=== PATIENT | male | born 1935 | race Caucasian/White ===

== ENCOUNTER → 2017-03-19 | Outpatient (REF) | payer MEDICARE ==
[2017-03-19 12:32] LABS: MEAN CORPUSCULAR HEMOGLOBIN 31.6 pg (27.0-33.0); MEAN CORPUSCULAR HGB CONC 33.2 g/dl (32.0-36.5); MEAN CORPUSCULAR VOLUME 95.2 fl (80.0-96.0); RED CELL DISTRIBUTION WIDTH 13.2 % (11.5-14.5); WHITE BLOOD COUNT 3.6 K/mm3 (4.0-10.0)
[2017-03-19 12:52] LABS: ALBUMIN 3.8 GM/DL (3.2-5.2); ALBUMIN/GLOBULIN RATIO 1.58 (1.00-1.93); ALKALINE PHOSPHATASE 52 U/L (45-117); ALT/SGPT 19 U/L (12-78); ANION GAP 6 MEQ/L (8-16); AST/SGOT 11 U/L (15-37); BILIRUBIN,TOTAL 0.5 MG/DL (0.2-1.0); BLOOD UREA NITROGEN 18 MG/DL (7-18); CALCIUM LEVEL 8.3 MG/DL (8.8-10.2); CARBON DIOXIDE LEVEL 31 MEQ/L (21-32); CHLORIDE LEVEL 107 MEQ/L (98-107); CHOLESTEROL LEVEL 130 MG/DL (<200); GLOMERULAR FILTRATION RATE > 60.0 (>35); GLUCOSE, FASTING 101 MG/DL (83-110); POTASSIUM SERUM 4.3 MEQ/L (3.5-5.1); SODIUM LEVEL 144 MEQ/L (136-145); TOTAL PROTEIN 6.2 GM/DL (6.4-8.2); TRIGLYCERIDES LEVEL 72 MG/DL (<150); URIC ACID 3.3 MG/DL (3.5-7.2)
== END ==
LOC: M SFHCPLAZ 10:21
PROVIDERS: ATTEND Internal Medicine
DX: Z00.00 Encounter for general adult medical examination without abnormal findings (principal); I25.10 Atherosclerotic heart disease of native coronary artery without angina pectoris; Z79.899 Other long term (current) drug therapy; I10 Essential (primary) hypertension; M10.9 Gout, unspecified

== ENCOUNTER 2017-06-17 21:41 | Emergency (ER) | payer MEDICARE ==
[~2017-06-17] VITALS: Ht 180.3 cm; Wt 95.0 kg
[2017-06-17] MEDS ORDERED: ALLO15TA PO (21:52)
[2017-06-17] MEDS ORDERED: ESOM1CAP5 PO (21:52)
[2017-06-17] MEDS ORDERED: GABA-282 PO (21:52)
[2017-06-17] MEDS ORDERED: ROSU5TAB PO (21:52)
[2017-06-17] MEDS ORDERED: LISI-538 PO (21:52)
[2017-06-17] MEDS ORDERED: IBUP-1022 PO (22:13)
[2017-06-17] MEDS ORDERED: CYCL10TA PO (22:13)
[2017-06-17] MEDS ORDERED: KETOROLAC 60 MG/2 ML VIAL (J1885) IM ONE (22:15)
[2017-06-17 22:41] VITALS: BP 142/56
[2017-06-17] MEDS ORDERED: CYCLOBENZAPRINE 10 MG TAB PO ONE (22:45)
== END 2017-06-17 22:53 | disposition home or self-care (01) ==
LOC: M ED 21:41
DX: M43.6 Torticollis (principal); I13.10 Hypertensive heart and chronic kidney disease without heart failure, with stage 1 through stage 4 chronic kidney disease, or unspecified chronic kidney disease; N18.9 Chronic kidney disease, unspecified; Z95.5 Presence of coronary angioplasty implant and graft; Z87.891 Personal history of nicotine dependence; Z79.899 Other long term (current) drug therapy
CPT/HCPCS: 96372; 99282; J1885; J3360

== ENCOUNTER → 2017-09-09 | Outpatient (CLI) | payer MEDICARE ==
[~2017-09-09] MED LIST: ALLO15TA PO; CYCL10TA PO; ESOM1CAP5 PO; GABA-282 PO; IBUP-1022 PO; LISI-538 PO; ROSU5TAB PO
--- NOTE | 2017-09-09 14:15 | REP ---
Left lower extremity Duplex Doppler venous ultrasound: Real time compression and duplex Doppler interrogation of the left lower extremity deep venous system is performed. The left common femoral, superficial femoral and popliteal veins are fully compressible with transducer pressure and demonstrate normal spontaneous and phasic flow, without evidence of deep venous thrombosis. Impression: No evidence of deep venous thrombosis of the left lower extremity femoral popliteal venous system. Signed by Sunil Elliott MD 09/09/2017 02:06 P
--- NOTE | 2017-09-09 14:28 | REP ---
AP LATERAL LEFT FOOT, TWO VIEWS: HISTORY: Pain. There is no acute fracture or dislocation. The joint spaces are normal in appearance. An osteophyte is present on the posterior calcaneus. IMPRESSION: There is no acute fracture or dislocation. Signed by Evens Salomon MD 09/09/2017 02:33 P
--- NOTE | 2017-09-09 14:30 | REP ---
LEFT ANKLE, FOUR VIEWS: HISTORY: Foot pain. There is no acute fracture or dislocation. A calcified density is present inferior to the medial malleolus. This represents ligamentous or tendon calcification. An osteophyte is present on the posterior calcaneus. Soft tissue swelling is present. IMPRESSION: There is no acute fracture or dislocation. Signed by Evens Salomon MD 09/09/2017 02:33 P
[2017-09-09 15:08] LABS: ANION GAP 7 MEQ/L (8-16); BLOOD UREA NITROGEN 16 MG/DL (7-18); CALCIUM LEVEL 9.2 MG/DL (8.8-10.2); CARBON DIOXIDE LEVEL 31 MEQ/L (21-32); CHLORIDE LEVEL 107 MEQ/L (98-107); CREATININE FOR GFR 0.73 MG/DL (0.70-1.30); GLOMERULAR FILTRATION RATE > 60.0 (>35); GLUCOSE, FASTING 72 MG/DL (83-110); POTASSIUM SERUM 4.3 MEQ/L (3.5-5.1); SODIUM LEVEL 145 MEQ/L (136-145); URIC ACID 2.7 MG/DL (3.5-7.2)
== END ==
LOC: M LAB 12:52
PROVIDERS: ATTEND Nurse Practitioner Family
DX: M79.672 Pain in left foot (principal); M10.9 Gout, unspecified; R60.0 Localized edema

== ENCOUNTER → 2018-03-22 | Outpatient (REF) | payer MEDICARE ==
[2018-03-22 11:50] LABS: HEMATOCRIT 45.5 % (42.0-52.0); HEMOGLOBIN 14.9 g/dl (13.5-17.5); MEAN CORPUSCULAR HEMOGLOBIN 30.7 pg (27.0-33.0); MEAN CORPUSCULAR HGB CONC 32.7 g/dl (32.0-36.5); MEAN CORPUSCULAR VOLUME 93.6 fl (80.0-96.0); PLATELET COUNT, AUTOMATED 263 10^3/uL (150-450); RED BLOOD COUNT 4.86 10^6/uL (4.30-6.10); RED CELL DISTRIBUTION WIDTH 12.6 % (11.5-14.5)
[2018-03-22 12:06] LABS: ALBUMIN 3.7 GM/DL (3.2-5.2); ALBUMIN/GLOBULIN RATIO 1.32 (1.00-1.93); ALKALINE PHOSPHATASE 52 U/L (45-117); ALT/SGPT 16 U/L (12-78); ANION GAP 5 MEQ/L (8-16); AST/SGOT 13 U/L (7-37); BILIRUBIN,TOTAL 0.5 MG/DL (0.2-1.0); BLOOD UREA NITROGEN 20 MG/DL (7-18); CALCIUM LEVEL 8.7 MG/DL (8.8-10.2); CARBON DIOXIDE LEVEL 30 MEQ/L (21-32); CHLORIDE LEVEL 110 MEQ/L (98-107); CHOLESTEROL LEVEL 138 MG/DL (<200); CHOLESTEROL RISK RATIO 3.066 (<5); CREATININE FOR GFR 0.84 MG/DL (0.70-1.30); GLOMERULAR FILTRATION RATE > 60.0 (>35); GLUCOSE, FASTING 112 MG/DL (70-100); HDL CHOLESTEROL 45 MG/DL (>40); LDL CHOLESTEROL 80.4 MG/DL (<100); MAGNESIUM LEVEL 2.4 MG/DL (1.8-2.4); NON-HDL-C 93 MG/DL; POTASSIUM SERUM 4.4 MEQ/L (3.5-5.1); SODIUM LEVEL 145 MEQ/L (136-145); TOTAL PROTEIN 6.5 GM/DL (6.4-8.2); TRIGLYCERIDES LEVEL 63 MG/DL (<150)
[2018-03-22 12:55] LABS: MALB URINE SIEMENS 9.3 MG/L; MAU/CREAT RATIO 6.3 MCG/MG (0.0-30.0)
[2018-03-22 13:00] LABS: ESTIMATED AVERAGE GLUCOSE 137 MG/DL (60-110); HEMOGLOBIN A1c 6.4 %
== END ==
LOC: M SFHCPLAZ 08:00
DX: E78.00 Pure hypercholesterolemia, unspecified (principal); Z79.899 Other long term (current) drug therapy; I10 Essential (primary) hypertension; R73.01 Impaired fasting glucose
CPT/HCPCS: 83735

== ENCOUNTER → 2018-03-28 | Outpatient (REF) | payer MEDICARE ==
[2018-03-28 11:36] LABS: RHEUMATOID FACTOR QUANT < 10.0 IU/ML (<15.0)
[2018-03-28 11:36] LABS: PSA SCREENING 1.61 NG/ML (< 4.0)
[2018-03-30 00:07] LABS: CYCLIC CITRULLINATED PEPTIDE 5 units (0-19)
[2018-03-30 00:07] LABS: Lyme Disease IgG/IgM Antibodie <0.91 ISR (0.00-0.90); Lyme Disease IgM Ab Quantitati <0.80 index (0.00-0.79)
== END ==
LOC: M SFHCPLAZ 08:05
DX: M19.90 Unspecified osteoarthritis, unspecified site (principal); Z12.5 Encounter for screening for malignant neoplasm of prostate
CPT/HCPCS: G0103

== ENCOUNTER → 2018-09-21 | Outpatient (REF) | payer MEDICARE ==
[2018-09-21 12:35] LABS: ALBUMIN 3.9 GM/DL (3.2-5.2); ALKALINE PHOSPHATASE 54 U/L (45-117); ALT/SGPT 16 U/L (12-78); ANION GAP 6 MEQ/L (8-16); AST/SGOT 16 U/L (7-37); BILIRUBIN,TOTAL 0.7 MG/DL (0.2-1.0); BLOOD UREA NITROGEN 14 MG/DL (7-18); CALCIUM LEVEL 9.4 MG/DL (8.8-10.2); CARBON DIOXIDE LEVEL 29 MEQ/L (21-32); CHLORIDE LEVEL 106 MEQ/L (98-107); CREATININE FOR GFR 0.92 MG/DL (0.70-1.30); GLOMERULAR FILTRATION RATE > 60.0 (>35); GLUCOSE, FASTING 120 MG/DL (70-100); MAGNESIUM LEVEL 2.4 MG/DL (1.8-2.4); POTASSIUM SERUM 4.2 MEQ/L (3.5-5.1); SODIUM LEVEL 141 MEQ/L (136-145); TOTAL PROTEIN 6.5 GM/DL (6.4-8.2)
[2018-09-21 12:46] LABS: ESTIMATED AVERAGE GLUCOSE 134 MG/DL (60-110); HEMOGLOBIN A1c 6.3 %
== END ==
LOC: M SFHCPLAZ 08:11
DX: I10 Essential (primary) hypertension (principal); R73.01 Impaired fasting glucose
CPT/HCPCS: 83735

== ENCOUNTER 2019-03-20 10:59 | Emergency (ER) | payer MEDICARE ==
[~2019-03-20] VITALS: Ht 182.9 cm; Wt 90.0 kg
[~2019-03-20 10:59] MED LIST changes: -ALLO15TA PO; +ALLO300T2 PO; -GABA-282 PO; +GABA-843 PO; -ROSU5TAB PO; +ROSU5TAB4 PO
[2019-03-20] MEDS ORDERED: ASPI81TA85 PO (11:19)
[2019-03-20] MEDS ORDERED: AMLO2.5T3 (11:19)
[2019-03-20] MEDS ORDERED: ZYLO300T6 PO (11:19)
[2019-03-20 11:39] LABS: BASO % 0.7 % (0.0-1.0); EOS # 0.1 10^3/uL (0.0-0.50); EOS % 1.5 % (0.0-3.0); HEMATOCRIT 47.5 % (42.0-52.0); LYMPH # 0.9 10^3/uL (1.5-4.5); LYMPH % 19.7 % (24.0-44.0); MEAN CORPUSCULAR HEMOGLOBIN 31.7 pg (27.0-33.0); MEAN CORPUSCULAR HGB CONC 33.7 g/dl (32.0-36.5); MEAN CORPUSCULAR VOLUME 94.2 fl (80.0-96.0); MONO # 0.5 10^3/uL (0.0-0.8); NEUTROPHILS % 66.7 % (36.0-66.0); PLATELET COUNT, AUTOMATED 247 10^3/uL (150-450); RED BLOOD COUNT 5.04 10^6/uL (4.30-6.10); WHITE BLOOD COUNT 4.6 10^3/uL (4.0-10.0)
[2019-03-20 12:15] LABS: BLOOD UREA NITROGEN 15 MG/DL (7-18); CARBON DIOXIDE LEVEL 29 MEQ/L (21-32); CHLORIDE LEVEL 108 MEQ/L (98-107); CPK CREATINE PHOSPHOKINASE 53 U/L (39-308); CREATININE FOR GFR 0.88 MG/DL (0.70-1.30); GLOMERULAR FILTRATION RATE > 60.0 (>35); GLUCOSE, FASTING 117 MG/DL (70-100); MB/CK RELATIVE INDEX 3.58 (< OR =4); SODIUM LEVEL 143 MEQ/L (136-145); TROPONIN I < 0.02 NG/ML (< 0.10)
--- NOTE | 2019-03-20 12:16 | ECGEPIP ---
Stationary ECG Study [facility] - ED Test Date: 2019-03-20 Pat Name: SANTOSH MATIAS Department: Room: - Gender: M Carpenter General: JEAN : 1935 Requested By: Rustam Upton Order Number: [id number] Reading MD: Bibiana Blake Measurements Intervals [place] Rate: 56 P: 11 MT: 221 QRS: 103 QRSD: 133 T: 49 QT: 446 QTc: 432 Interpretive Statements SINUS BRADYCARDIA WITH FIRST DEGREE AV BLOCK MARKED RIGHT AXIS DEVIATION RIGHT BUNDLE BRANCH BLOCK NO PRIOR FOR COMPARISON Electronically Signed On 03-20-2019 12:16:05 EDT by Bibiana Blake
[2019-03-20 13:54] VITALS: BP 149/76
== END 2019-03-20 14:25 | disposition home or self-care (01) ==
LOC: M ED 10:59
DX: I10 Essential (primary) hypertension (principal); I45.10 Unspecified right bundle-branch block; I25.10 Atherosclerotic heart disease of native coronary artery without angina pectoris; Z95.5 Presence of coronary angioplasty implant and graft; Z79.899 Other long term (current) drug therapy; Z79.82 Long term (current) use of aspirin; Z87.891 Personal history of nicotine dependence

== ENCOUNTER → 2019-09-27 | Outpatient (REF) | payer MEDICARE ==
[~2019-09-27] MED LIST changes: +AMLO2.5T3; +ASPI81TA85 PO; -ROSU5TAB4 PO; +ROSU5TAB5 PO; +ZYLO300T6 PO
[2019-09-27 12:26] LABS: ALBUMIN 3.6 GM/DL (3.2-5.2); ALT/SGPT 17 U/L (12-78); BILIRUBIN,TOTAL 0.4 MG/DL (0.2-1.0); BLOOD UREA NITROGEN 17 MG/DL (7-18); CALCIUM LEVEL 9.1 MG/DL (8.8-10.2); CARBON DIOXIDE LEVEL 32 MEQ/L (21-32); CHLORIDE LEVEL 105 MEQ/L (98-107); CREATININE FOR GFR 1.03 MG/DL (0.70-1.30); GLOMERULAR FILTRATION RATE > 60.0 (>35); GLUCOSE, FASTING 127 MG/DL (70-100); MAGNESIUM LEVEL 2.2 MG/DL (1.8-2.4); POTASSIUM SERUM 4.4 MEQ/L (3.5-5.1); SODIUM LEVEL 141 MEQ/L (136-145); TOTAL PROTEIN 6.3 GM/DL (6.4-8.2)
[2019-09-27 12:28] LABS: HEMOGLOBIN A1c 7.1 %
[2019-09-27 12:45] LABS: MAU/CREAT RATIO 6.5 MCG/MG (0.0-30.0)
== END ==
LOC: M SFHCPLAZ 08:55
PROVIDERS: ATTEND Internal Medicine
DX: I10 Essential (primary) hypertension (principal); R73.01 Impaired fasting glucose

== ENCOUNTER → 2020-03-12 | Outpatient (REF) | payer MEDICARE ==
[~2020-03-12] MED LIST changes: +CYCL-707 PO; -CYCL10TA PO
[2020-03-12 10:46] LABS: HEMATOCRIT 46.7 % (42.0-52.0); HEMOGLOBIN 15.7 g/dl (13.5-17.5); MEAN CORPUSCULAR HEMOGLOBIN 31.8 pg (27.0-33.0); MEAN CORPUSCULAR HGB CONC 33.6 g/dl (32.0-36.5); MEAN CORPUSCULAR VOLUME 94.5 fl (80.0-96.0); PLATELET COUNT, AUTOMATED 260 10^3/uL (150-450); RED BLOOD COUNT 4.94 10^6/uL (4.30-6.10); WHITE BLOOD COUNT 4.2 10^3/uL (4.0-10.0)
[2020-03-12 11:11] LABS: ALBUMIN 3.9 GM/DL (3.2-5.2); ALT/SGPT 20 U/L (12-78); BILIRUBIN,TOTAL 0.7 MG/DL (0.2-1.0); BLOOD UREA NITROGEN 18 MG/DL (7-18); CALCIUM LEVEL 9.5 MG/DL (8.8-10.2); CARBON DIOXIDE LEVEL 30 MEQ/L (21-32); CHLORIDE LEVEL 105 MEQ/L (98-107); CHOLESTEROL LEVEL 136 MG/DL (<200); GLOMERULAR FILTRATION RATE > 60.0 (>35); GLUCOSE, FASTING 136 MG/DL (70-100); HDL CHOLESTEROL 44 MG/DL (>40); LDL CHOLESTEROL 72 MG/DL (<100); NON-HDL-C 92 MG/DL; POTASSIUM SERUM 4.1 MEQ/L (3.5-5.1); SODIUM LEVEL 141 MEQ/L (136-145); TOTAL PROTEIN 6.8 GM/DL (6.4-8.2); TRIGLYCERIDES LEVEL 100 MG/DL (<150); URIC ACID 3.4 MG/DL (3.5-7.2)
[2020-03-12 11:12] LABS: MALB URINE SIEMENS 12.9 MG/L; MAU/CREAT RATIO 9.6 MCG/MG (0.0-30.0)
[2020-03-12 11:58] LABS: HEMOGLOBIN A1c 6.9 %
== END ==
LOC: M PLALAB 08:19
PROVIDERS: ATTEND Internal Medicine
DX: Z86.010 Personal history of colon polyps (principal); I10 Essential (primary) hypertension; R73.01 Impaired fasting glucose; E78.00 Pure hypercholesterolemia, unspecified; M10.9 Gout, unspecified

== ENCOUNTER 2020-04-26 23:52 | Emergency (ER) | payer BC, MEDICARE ==
[~2020-04-26] VITALS: Ht 182.9 cm; Wt 90.9 kg
[2020-04-26 23:52] VITALS: BP 157/70
[~2020-04-26 23:52] MED LIST changes: -ASPI81TA85 PO; +ASPI81TA86 PO; +GABA-282 PO; -GABA-843 PO; -LISI-538 PO; +LISI20TA33 PO
[2020-04-27] MEDS ORDERED: NAPR-837 PO (03:10)
[2020-04-27] MEDS ORDERED: ROBA750T4 PO (03:10)
[2020-04-27] MEDS ORDERED: OXYCODONE/APAP 5MG/325MG(BULK FOR ED) 1 TABLET PO ONE (03:15)
[2020-04-27] MEDS ORDERED: KETOROLAC 60MG 2ML VIAL IM ONE (03:15)
[2020-04-27] MEDS ORDERED: methocarbamoL 750 MG TAB PO ONE (03:15)
== END 2020-04-27 03:39 | disposition home or self-care (01) ==
LOC: M ED 23:52
DX: M54.2 Cervicalgia (principal)
CPT/HCPCS: 96372; 99282; J1885

== ENCOUNTER → 2020-09-13 | Outpatient (REF) | payer MEDICARE ==
[~2020-09-13] MED LIST changes: -GABA-282 PO; +GABA-843 PO; +LISI-538 PO; -LISI20TA33 PO; +NAPR-837 PO; +ROBA750T4 PO
[2020-09-13 11:21] LABS: ALBUMIN 3.8 GM/DL (3.2-5.2); ALT/SGPT 14 U/L (12-78); BILIRUBIN,TOTAL 0.6 MG/DL (0.2-1.0); BLOOD UREA NITROGEN 15 MG/DL (7-18); CALCIUM LEVEL 9.2 MG/DL (8.8-10.2); CARBON DIOXIDE LEVEL 29 MEQ/L (21-32); CHLORIDE LEVEL 108 MEQ/L (98-107); CREATININE FOR GFR 1.02 MG/DL (0.70-1.30); GLOMERULAR FILTRATION RATE > 60.0 (>35); GLUCOSE, FASTING 123 MG/DL (70-100); MAGNESIUM LEVEL 2.1 MG/DL (1.8-2.4); POTASSIUM SERUM 4.1 MEQ/L (3.5-5.1); SODIUM LEVEL 142 MEQ/L (136-145); TOTAL PROTEIN 6.3 GM/DL (6.4-8.2)
[2020-09-13 11:35] LABS: HEMOGLOBIN A1c 6.4 %
== END ==
LOC: M PLALAB 08:43
PROVIDERS: ATTEND Internal Medicine
DX: I10 Essential (primary) hypertension (principal); E11.9 Type 2 diabetes mellitus without complications; Z12.5 Encounter for screening for malignant neoplasm of prostate
CPT/HCPCS: 36415; 80053; 83036; 83735; G0103

== ENCOUNTER → 2021-03-13 | Outpatient (REF) | payer MEDICARE ==
[~2021-03-13] MED LIST changes: +GABA-282 PO; -GABA-843 PO; -LISI-538 PO; +LISI20TA33 PO
[2021-03-13 10:42] LABS: BASO % 0.9 % (0.0-1.0); EOS # 0.1 10^3/uL (0.0-0.5); EOS % 1.4 % (0.0-3.0); HEMATOCRIT 44.8 % (42.0-52.0); HEMOGLOBIN 14.7 g/dl (13.5-17.5); LYMPH % 23.9 % (24.0-44.0); MEAN CORPUSCULAR HEMOGLOBIN 31.6 pg (27.0-33.0); MEAN CORPUSCULAR HGB CONC 32.8 g/dl (32.0-36.5); MEAN CORPUSCULAR VOLUME 96.3 fl (80.0-96.0); MONO # 0.5 10^3/uL (0.0-0.8); MONO % 11.8 % (2.0-8.0); NEUTROPHILS # 2.7 10^3/uL (1.5-8.5); NEUTROPHILS % 61.8 % (36.0-66.0); PLATELET COUNT, AUTOMATED 253 10^3/uL (150-450); RED BLOOD COUNT 4.65 10^6/uL (4.30-6.10); WHITE BLOOD COUNT 4.3 10^3/uL (4.0-10.0)
[2021-03-13 11:29] LABS: BLOOD UREA NITROGEN 19 MG/DL (7-18); CARBON DIOXIDE LEVEL 29 MEQ/L (21-32); CHLORIDE LEVEL 108 MEQ/L (98-107); CREATININE FOR GFR 0.91 MG/DL (0.70-1.30); GLOMERULAR FILTRATION RATE > 60.0 (>35); GLUCOSE, FASTING 136 MG/DL (70-100); SODIUM LEVEL 141 MEQ/L (136-145)
[2021-03-13 11:30] LABS: ALBUMIN 3.9 GM/DL (3.2-5.2); ALT/SGPT 17 U/L (12-78); BILIRUBIN,TOTAL 0.6 MG/DL (0.2-1.0); CALCIUM LEVEL 9.6 MG/DL (8.8-10.2); CHOLESTEROL LEVEL 167 MG/DL (<200); HDL CHOLESTEROL 53 MG/DL (>40); LDL CHOLESTEROL 96 MG/DL (<100); MAGNESIUM LEVEL 2.2 MG/DL (1.8-2.4); NON-HDL-C 114 MG/DL; TOTAL PROTEIN 6.5 GM/DL (6.4-8.2); TRIGLYCERIDES LEVEL 91 MG/DL (<150)
[2021-03-13 11:52] LABS: HEMOGLOBIN A1c 6.4 %
== END ==
LOC: M PLALAB 08:10
PROVIDERS: ATTEND Internal Medicine
DX: Z86.010 Personal history of colon polyps (principal); I10 Essential (primary) hypertension; E11.9 Type 2 diabetes mellitus without complications; E78.00 Pure hypercholesterolemia, unspecified

== ENCOUNTER → 2021-09-18 | Outpatient (CLI) | payer MEDICARE ==
[2021-09-18 11:11] LABS: MALB URINE SIEMENS 7.3 MG/L; MAU/CREAT RATIO 5.3 MCG/MG (0.0-30.0)
[2021-09-18 11:19] LABS: ALBUMIN 3.8 GM/DL (3.2-5.2); ALT/SGPT 17 U/L (12-78); BILIRUBIN,TOTAL 0.6 MG/DL (0.2-1.0); BLOOD UREA NITROGEN 17 MG/DL (7-18); CALCIUM LEVEL 9.4 MG/DL (8.8-10.2); CARBON DIOXIDE LEVEL 30 MEQ/L (21-32); CHLORIDE LEVEL 105 MEQ/L (98-107); GLOMERULAR FILTRATION RATE > 60.0 (>35); GLUCOSE, FASTING 115 MG/DL (70-100); MAGNESIUM LEVEL 2.3 MG/DL (1.8-2.4); POTASSIUM SERUM 4.1 MEQ/L (3.5-5.1); SODIUM LEVEL 141 MEQ/L (136-145); TOTAL PROTEIN 6.5 GM/DL (6.4-8.2); URIC ACID 3.2 MG/DL (3.5-7.2)
[2021-09-18 11:49] LABS: HEMOGLOBIN A1c 6.3 %
== END ==
LOC: M PLALAB 08:50
PROVIDERS: ATTEND Internal Medicine
DX: I10 Essential (primary) hypertension (principal); E11.9 Type 2 diabetes mellitus without complications; M10.9 Gout, unspecified

== ENCOUNTER 2021-10-03 13:08 | Outpatient (CLI) | payer MEDICARE ==
[~2021-10-03] VITALS: Ht 182.9 cm; Wt 88.0 kg
[~2021-10-03 13:08] MED LIST changes: +ALBUTEROL 90 MCG/ACT 8GM HFA INHALER INH PRN; +ALBUTEROL SULFATE 2.5 MG/0.5 ML INH NEB SOLN INH PRN; -AMLO2.5T3; +AMLO2.5T3 PO; +EPINEPHrine INJ 1 MG/ML 1ML AMP IM PRN; +NS 1,000 ML IV SCH; +diphenhydrAMINE 50MG/ML VIAL (J1200) IV PRN; +methylPREDNISolone 125MG 2ML VIAL IV PRN
[2021-10-03] MEDS ORDERED: CASIRIVIMAB (REGN10933) 600 MG, IMDEVIMAB (REGN10987) 600 MG in NS 250 ML IV ONE (14:00)
[2021-10-03 14:27] VITALS: BP 117/56
[2021-10-03 14:57] VITALS: BP 111/53
[2021-10-03 15:27] VITALS: BP 107/56
[2021-10-03 16:27] VITALS: BP 137/60
== END 2021-10-03 16:25 | disposition home or self-care (01) ==
LOC: M OPCLI4PR 13:08
PROVIDERS: ATTEND Nurse Practitioner Family
DX: U07.1 COVID-19 (principal)

== ENCOUNTER 2021-10-08 06:33 | Inpatient (IN) | payer MEDICARE ==
[~2021-10-08] VITALS: Ht 180.3 cm; Wt 80.8 kg
[~2021-10-08 06:33] MED LIST changes: -ALBUTEROL 90 MCG/ACT 8GM HFA INHALER INH PRN; -ALBUTEROL SULFATE 2.5 MG/0.5 ML INH NEB SOLN INH PRN; -EPINEPHrine INJ 1 MG/ML 1ML AMP IM PRN; -NS 1,000 ML IV SCH; -diphenhydrAMINE 50MG/ML VIAL (J1200) IV PRN; -methylPREDNISolone 125MG 2ML VIAL IV PRN
--- OUTSIDE RECORDS SUMMARY | 2021-10-08 06:40 | CCD | Continuity of Care Document ---
Author Author Katherine IZAGUIRRE MD Organization Unknown Address [address] [place] [address], [address] [place] [address] Phone [phone] Care Team Providers Care Complaint Supervisor Name Role Phone David Wheeler MD AUTM [phone] Rustam Barry MD AUTAdry Unavailable Problems Description No Information Available Social History Type Date Description Comments Sex Unknown ETOH Use Currently consumes alcohol daily Tobacco Use Start: Unknown End: Unknown Patient is a former smoker Allergies and adverse reactions Description No Known Drug Allergies Medications Active Medications SIG Qnty Indications Ordering Provide r Date Cephalexin 500mg Tablets Unknown Sucralfate 1gm Tablets Ronna Juarez MD Nitroglycerin 0.4mg Tablets Sub David Wheeler MD Fluticasone Propionate 50mcg/Act Suspension David Wheeler MD Amlodipine Besylate 2.5mg Tablets David Wheeler MD Esomeprazole Magnesium 20mg Capsules David Caldera MD Chlorthalidone 25mg Tablets David Wheeler MD Allopurinol 300mg Tablets David Wheeler MD Methocarbamol 750mg Tablets 1 by mouth three times a day as needed Unknown Tramadol HCL 50mg Tablets 1 every 4-6 hours as needed pain Unknown Crestor 5mg Tablets 1 by mouth every day Unknown Tylenol 650mg Tablets ER Unknown Turmeric Curcumin 1000mg Capsules Unknown [place] Extract 150mg Capsules Unknown Vitamin C 1000mg Tablets 1 by mouth every day Unknown [place]-3 1360mg Capsules Unknown Aspirin 81mg Tablets DR 1 by mouth every day Unknown Esomeprazole Magnesium 40mg Capsul es DR 1 by mouth every day Unknown Amlodipine Besylate 5mg Tablets 1 by mouth every day Unknown Lisinopril 20mg Tablets 1 by mouth every day Unknown Immunizations Description No Information Available Vital Signs Date Vital Result Comment 08/25/2021 10:58am Height 72 inches 6'0" Weight 195.00 lb BMI (Body Mass Index) 26.4 kg/m2 09/23/2020 9:44am Body Temperature 96.4 F Results Description No Information Available Procedures Description No Information Available Medical Devices Description No Information Available Encounters Description No Information Available Assessments Date Code Description Provider 08/25/2021 S43.492D Other sprain of left shoulder heather int, subsequent encounter Romel Izaguirre MD 08/25/2021 M19.012 Primary osteoarthritis, left gisela ulder Romel Izaguirre MD 08/25/2021 Z98.1 Arthrodesis status Romel lyn MD Plan of Treatment 08/25/2021 - Romel Izaguirre MD* S43.492D Other sprain of left shoulder joint, subsequent encounter* Follow up:* 6 month Lt. shoulder mikey with DPV. * M19.012 Primary osteoarthritis, left shoulder * Z98.1 Arthrodesis status Functional Status Description No Information Available Mental Status Description No Information Available Referrals Description No Information Available
--- OUTSIDE RECORDS SUMMARY | 2021-10-08 06:40 | CCD | Continuity of Care Document ---
Author Author Katherine YOUNG ND Organization Unknown Address [address] [place] [address] [place] [address] Phone [phone] Care Team Providers Care Chain Sales Consultant Name Role Phone David Wheeler MD AUTM [phone] Gilles Vivas MD AUTM [phone] Problems Description No Information Available Social History Type Date Description Comments Sex Unknown ETOH Use Consumes 1 beer per day Tobacco Use Start: Unknown End: Unknown Patient is a former smoker Smoking Status Reviewed: 06/08/20 Patient is a former smoker Allergies and adverse reactions Description No Known Drug Allergies Medications Active Medications SIG Qnty Indications Ordering Provide r Date Aspirin [address] Unknown Crestor Unknown Lisinopril Unknown Amlodipine Besylate Unknown Allopurinol Unknown Esomeprazole Magnesium Unknown Alpha Lipoic Acid Extra Strength Unk nown [place] 3-6-9 Unknown Vitamin C Adult Gummies Unknown 0 [place] Extract Unknown Turmeric Curcumin Unknown 000 Tylenol 8 Hour Arthritis Pain 650mg Tablets ER none as directed Unknown Ibuprofen 200 200mg Tablets 2@ 3p per package instructions Unknown Stool Softener Unknown Simethicone Unknown Immunizations Description No Information Available Vital Signs Date Vital Result Comment 06/08/2020 10:56am BP Systolic 109 mmHg BP Diastolic 73 mmHg Heart Rate 74 /min Respiratory Rate 12 /min O2 % BldC Oximetry 95 % Body Temperature 97.5 F Weight 200.00 lb Height 72 inches 6'0" BMI (Body Mass Index) 27.1 kg/m2 Pain Level 6 06/07/2020 11:21am BP Systolic 111 mmHg BP Diastolic 64 mmHg Heart Rate 90 /min O2 % BldC Oximetry 94 % Body Temperature 97.3 F Weight 200.00 lb Height 72 inches 6'0" BMI (Body Mass Index) 27.1 kg/m2 Pain Level 6 Results Description No Information Available Procedures Description No Information Available Medical Devices Description No Information Available Encounters Description No Information Available Assessments Description No Information Available Plan of Treatment No Information Available Functional Status Description No Information Available Mental Status Description No Information Available Referrals Description No Information Available
--- OUTSIDE RECORDS SUMMARY | 2021-10-08 06:40 | CCD ---
Continuity of Care Document (CCD) Created on: 09/30/2021 Armand Katherine External Reference #: [id number] : 1935 Sex: Male Author Author Katherine YOUNG [place] Organization Unknown Address [address] [place] [address] [place] [address] Phone [phone] Care Team Providers Care Occup Ther Name Role Phone David Wheeler MD AUTM [phone] Gilles Vivas MD AUTM [phone] Problems Description No Information Available Social History [...] Alpha Lipoic Acid Extra Strength Unk nown [place] 3-6-9 Unknown Vitamin C Adult Gummies Unknown 0 [place] Extract Unknown Turmeric Curcumin Unknown 000 Tylenol [...] Information Available Assessments Date Code Description Provider 09/30/2021 Z20.828 Contact with and (danielle spected) exposure to other viral communicable diseases DAVID Deleon Plan of Treatment No Information Available Functional Status Description No Information Available Mental Status Description No Information Available Referrals Description No Information Available
--- OUTSIDE RECORDS SUMMARY | 2021-10-08 06:40 | CCD ---
Author Author [facility] Organization [facility] [place] [facility] Address Unknown Phone Unavailable Care Team Providers Care Beading Machine Operator Name Role Phone David Wheeler Unavailable PROBLEMS Type Condition ICD9-CM Code EQP13-DA Code Onset Dates Condition S tatus W/U Status Risk SNOMED Code Notes Problem Essential hypertension I10 Active confirmed 80208464 On lisinopril, and amlodipine was added in October 2017; he had lightheadedness as a complaint, 04/29/2018, and at that time I reduced his amlodipine to 2.5 mg daily. Because of his labile blood pressure elevations, I added chlorthalidone in low-dose, 3 days a week, in March 2019 (he had had an emergency department visit earlier in March 2019 with elevated blood pressures). Blood pressure is currently controlled on his combination therapy Problem CAD (coronary artery disease) I25.10 Active confirm ed [id number] Had ACS followed by cardiac catheterization 07/16. At that time he had a 95% LAD lesion, treated with drug-eluting stent. Last LVEF 77% in 05/2015. Has no angina but has vague chest discomforts occasionally, and these had been better since he started his PPI in December 2016. No CHF symptoms. He is on Aspirin, statin, DOUG inhibitor, calcium channel carlos. Because of some vague discomforts and shortness of breath as of April 2018, his fire fighter reevaluated him in June 2018 and he had a stress echo in July 2018 which was unremarkable with an ejection fraction of 75% and no significant valvular disease was seen. Problem Gastroesophageal reflux K21.9 Active confirmed [id number] On a PPI since December 2016. Patient has controlled heartburn. Last endoscopy was done in January 2021 and he had Slade's without dysplasia. In 2009 he had a Schatzki's ring dilated. Problem Diabetes mellitus type 2 in nonobese E11.9 Act john confirmed [id number] His fasting glucose has been elevated in the past. Most recent hemoglobin A1c was 6.4% in September 2020 in March 2021, 6.9% in March 2020, 7.1% in September 2019, 6.6% in March 2019; hemoglobin A1c was 6.3% in September 2018, 6.4% in March 2018, 6.5% in 2015. Urine microalbumin was negative in March 2020. He will continue to work on diet and exercise. He is diabetic but would like to avoid pharmacotherapy at this point. Problem Gout M10.9 Active confirmed [id number] Uric acid controlled on medication (last uric acid level was 3.4 mg/dl in March 2020). Takes Allopurinol. ?left knee flare in [place] 02/2016; I have no record and suspect it was not gout. Problem Hypercholesteremia E78.00 Active confirmed 1 [id number] He is on Crestor with lipid control at target for secondary prevention when last assessed in March 2021. Problem Encounter for long-term current use of medication Z79.899 Active confirmed [id number] Labs reviewed. Problem History of adenomatous polyp of colon Z86.010 Ac tive confirmed [id number] Originally identified as having adenomat ous polyp in 2009. He had a repeat colonoscopy 08/2015 which revealed more adenomatous polyps, and apparently a 4 mm palpable was fulgurated in January 2021. Problem Night sweats R61 Active confirmed [id number] 0 He described recurrent night sweats of several weeks' duration as of September 2017. This has not progressed since, and actually is improved and only occurs rarely by interview in March 2021. I do not think further evaluation is necessary at this time. TSH was normal in March 2019. Problem Arthritis M19.90 Active confirmed [id number] So me serology was ordered as of March 2018 and was negative for inflammatory arthritis. He takes Tylenol or Bufferin with benefit. He has a history of a lumbar laminectomy in 2012 and he is now suffering from some right leg symptoms. He previously was on gabapentin and was advised to restart that as of September 2019. He is apparently not doing so. ALLERGIES No Known Allergies ENCOUNTERS from 1935 to 2021-10-01 Encounter Location Date Provider [facility] [address] [facility] [phone] [place] [address] [facility] Route Administration Date Status Influenza 18 yrs & older Flublok Unknown Sep 18, 2020 Refused Influenza 18 yrs & older Flublok Unknown Sep 27, 2018 Refused Zoster 50mcg/0.5mL Shingrix Unknown March 03, 2019 Admi nistered Zoster 50mcg/0.5mL Shingrix Unknown Dec 29, 2018 Admi nistered Influenza (High Dose 65 & up) Unknown Sep 09, 2017 Re fused Zoster 0.65mL Zostavax Unknown Sep 26, 2014 Administe red Pneumococcal Adult 0.5mL Pneumovax 23 Unknown Aug 08 03 Administered TDAP 0.5mL (Boostrix) Unknown May 24, 2020 Administer ed Pneumococcal 0.5mL Prevnar 13 IM Intramuscular March 23, 2017 A dministered SOCIAL HISTORY Sex Assigned At : Social History Observation Description Sex Assigned At Unknown Audit Question Answer Notes Total Score: 4 Interpretation: Alcohol Education Domestic Violence: Question Answer Notes Status: Sexual Hx: Question Answer Notes Had sex in the last 12 months (vaginal, oral, or anal)? No Have you ever had an STD? No Drug and Alcohol Question Answer Notes Total Score: 0 Interpretation: No problems reported Alcohol Screening: Question Answer Notes Did you have a drink containing alcohol in the past year? Ye s Points 4 Interpretation Positive How often did you have six or more drinks on one occas ion in the past year? Never (0 points) How many drinks did you have on a typica l day when you were drinking in the past year? 1 or 2 (0 points) How often did you have a drink containing alcohol in t he past year? Four or more times a week (4 points) REASON FOR REFERRAL No Information VITAL SIGNS No information MEDICATIONS Medication SIG (Take, Route, Frequency, Duration) Notes Start Da te End Date Status Simethicone 125 MG 1 tablet after meals and at bedtime as needed Orally Four times a day Dec, Active Flonase 50 MCG/ACT 2 sprays in each nostril Nasally Once a day f or 90 days Sep, Active Chlorthalidone 25 MG 1/2 tablet Orally Once a day on Wed/Wed/Wed for 93 Active Lisinopril 20MG 1 tablet Orally Once a day for 90 days Active amLODIPine Besylate 2.5 MG 1 tablet Orally Once a day for 90 Active Colace 100 MG 1 capsule as needed Orally bid for 30 day(s) Dec, Active Nitroglycerin 0.4 MG 1 tab(s) Sublingual one tab every five minutes for chest pain not to exceed three doses for 30 days Active Turmeric 1000 mg 1 cap(s) Orally daily Active ProAir HFA 108 (90 Base) MCG/ACT 2 puffs Inhalation ev gio 4 hours as needed for wheezing for 30 Days March, Active Allopurinol 300 MG 1 tablet Orally Once a day for 90 days Active Esomeprazole Magnesium 20 MG 1 capsule Orally twice da no as needed for heartburn for 90 Active Rosuvastatin Calcium 5MG 1 tablet Orally Once a day for 90 Active [place] 150 MG 1 cap(s) Orally daily Active Aspirin 81 MG 1 tablet Orally Once a day Active PROCEDURES No Information RESULTS No Results REASON FOR VISIT antibody infusion MEDICAL (GENERAL) HISTORY Type Description Date Medical History Essential hypertension Medical History CAD (coronary artery disease) Medical History Hypercholesterolemia Medical History Elevated fasting blood sugar Medical History Gastroesophageal reflux Medical History History of adenomatous polyp of colon Medical History Gout Medical History Night sweats Medical History Arthritis Surgical History umbilical hernia repair 10/1983 Surgical History arthroscopic knee surgery, left 10/1999 Surgical History benign lip lesion removal 2003 Surgical History right rotator cuff repair 03/2004 Surgical History left rotator cuff repair 01/2007 Surgical History Coronary stent placed 2007 Surgical History cataract removal, bilateral 2008 Surgical History carpal tunnel release, left 09/2011 Surgical History lumbar laminectomy, decompression and fu lewis L4-S1 10/2013 Surgical History colonoscopy 08/08/2015 Hospitalization History [facility] ED-HTN 03/20/2019 Hospitalization History [facility] ED-Head/neck pain 04/26/2020 Goals Section No Information Health Concerns No Information MEDICAL EQUIPMENT No Information MENTAL STATUS No Information FUNCTIONAL STATUS No Information ASSESSMENTS No Information PLAN OF TREATMENT Medication Medication Name Sig Start Date Stop Date amLODIPine Besylate 2.5 MG 1 tablet Orally Once a day for 90 Rosuvastatin Calcium 5MG 1 tablet Orally Once a day for 90 Lisinopril 20MG 1 tablet Orally Once a day for 90 days Chlorthalidone 25 MG 1/2 tablet Orally Once a day on Wed/Wed/Wed for 93 Allopurinol 300 MG 1 tablet Orally Once a day for 90 days Flonase 50 MCG/ACT 2 sprays in each nostril Nasally Once a day for 90 days Sep, Esomeprazole Magnesium 20 MG 1 capsule Orally twice da no as needed for heartburn for 90 Nitroglycerin 0.4 MG 1 tab(s) Sublingual one tab every five minutes for chest pain not to exceed three doses for 30 days Next Appt Details Provider Name:David Wheeler, 2021-10-08 10 :00:00 AM, [address] [facility], , [place], [address], Insurance Providers Payer Name Payer Address Payer Phone Insured Name Patient Relati onship to Insured Coverage Start Date Coverage End Date MEDICARE BLUE PPO [id number] [address] SANTOSH MATIAS self
--- OUTSIDE RECORDS SUMMARY | 2021-10-08 06:41 | CCD ---
Author Author [facility] Organization [facility] Address Unknown Phone Unavailable Care Team Providers Care Education Department Chair Name Role Phone BLAIR ([place]), Adry BALLARD MD Unavailable Unavailab le BLAIR ([place]), Adry BALLARD MD Unavailable Unavailab le BLAIR ([place]), Adry BALLARD MD Unavailable Unavailab le BLAIR ([place]), Adry BALLARD MD Unavailable Unavailab le BLAIR ([place]), Adry BALLARD MD Unavailable Unavailab le BLAIR ([place]), Adry BALLARD MD Unavailable Unavailab le BLAIR ([place]), Adry BALLARD MD Unavailable Unavailab le BLAIR ([place]), Adry BALLARD MD Unavailable Unavailab le BLAIR ([place]), Adry BALLARD MD Unavailable Unavailab le BLAIR ([place]), Adry BALLARD MD Unavailable Unavailab le BLAIR ([place]), Adry BALLARD MD Unavailable Unavailab le BLAIR ([place]), Adry BALLARD MD Unavailable Unavailab le BLAIR ([place]), Adry BALLARD MD Unavailable Unavailab le BLAIR ([place]), Adry BALLARD MD Unavailable Unavailab le BLAIR ([place]), Adry BALLARD MD Unavailable Unavailab le BLAIR ([place]), Adry BALLARD MD Unavailable Unavailab le BLAIR ([place]), Adry BALLARD MD Unavailable Unavailab le BLAIR ([place]), Adry BALLARD MD Unavailable Unavailab le BLAIR ([place]), Adry BALLARD MD Unavailable Unavailab le BLAIR ([place]), Adry BALLARD MD Unavailable Unavailab le BLAIR ([place]), Adry BALLARD MD Unavailable Unavailab le BLAIR ([place]), Adry BALLARD MD Unavailable Unavailab le BLAIR ([place]), Adry BALLARD MD Unavailable Unavailab le BLAIR ([place]), Adry BALLARD MD Unavailable Unavailab le BLAIR ([place]), Adry BALLADR MD Unavailable Unavailab le BLAIR ([place]), Adry BALLARD MD Unavailable Unavailab le BLAIR ([place]), Adry BALLARD MD Unavailable Unavailab le BLAIR ([place]), Adry BALLARD MD Unavailable Unavailab le BLAIR ([place]), Adry BALLARD MD Unavailable Unavailab le BLAIR ([place]), Adry BALLARD MD Unavailable Unavailab le BLAIR ([place]), Adry BALLARD MD Unavailable Unavailab le BLAIR ([place]), Adry BALLARD MD Unavailable Unavailab le BLAIR ([place]), Adry BALLARD MD Unavailable Unavailab le BLAIR ([place]), Adry BALLARD MD Unavailable Unavailab le BLAIR ([place]), Adry BALLARD MD Unavailable Unavailab le BLAIR ([place]), Adry BALLARD MD Unavailable Unavailab le BLAIR ([place]), Adry BALLARD MD Unavailable Unavailab le BLAIR ([place]), Adry BALLARD MD Unavailable Unavailab le BLAIR ([place]), Adry BALLARD MD Unavailable Unavailab le BLAIR ([place]), Adry BALLARD MD Unavailable Unavailab le BLAIR ([place]), Adry BALLARD MD Unavailable Unavailab le BLAIR ([place]), Adry BALLARD MD Unavailable Unavailab le BLAIR ([place]), Adry BALLARD MD Unavailable Unavailab le BLAIR ([place]), Adry BALLARD MD Unavailable Unavailab le BLAIR ([place]), Adry BALLARD MD Unavailable Unavailab le BLAIR ([place]), Adry BALLARD MD Unavailable Unavailab le BLAIR ([place]), Adry BALLARD MD Unavailable Unavailab le BLAIR ([place]), Adry BALLARD MD Unavailable Unavailab le BLAIR ([place]), Adry BALLARD MD Unavailable Unavailab le BLAIR ([place]), Adry BALLARD MD Unavailable Unavailab le BLAIR ([place]), Adry BALLARD MD Unavailable Unavailab le BLAIR ([place]), Adry BALLARD MD Unavailable Unavailab le BLAIR ([place]), Adry BALLARD MD Unavailable Unavailab le BLAIR ([place]), Adry BALLARD MD Unavailable Unavailab le BLAIR ([place]), Adry BALLARD MD Unavailable Unavailab le BLAIR ([place]), Adry BALLARD MD Unavailable Unavailab le BLAIR ([place]), Adry BALLARD MD Unavailable Unavailab le BLAIR ([place]), Adry BALLARD MD Unavailable Unavailab le BLAIR ([place]), Adry BALLARD MD Unavailable Unavailab le BLAIR ([place]), Adry BALLARD MD Unavailable Unavailab le BLAIR ([place]), Adry BALLARD MD Unavailable Unavailab le BLAIR ([place]), Adry BALLARD MD Unavailable Unavailab le BLAIR ([place]), Adry BALLARD MD Unavailable Unavailab le BLAIR ([place]), Adry BALLARD MD Unavailable Unavailab le BLAIR ([place]), Adry BALLARD MD Unavailable Unavailab le BLAIR ([place]), Adry BALLARD MD Unavailable Unavailab le BLAIR ([place]), Adry BALLARD MD Unavailable Unavailab le BLAIR ([place]), Adry BALLARD MD Unavailable Unavailab le BLAIR ([place]), Adry BALLARD MD Unavailable Unavailab le BLAIR ([place]), Adry BALLARD MD Unavailable Unavailab le BLAIR ([place]), Adry BALLARD MD Unavailable Unavailab le BLAIR ([place]), Adry BALLARD MD Unavailable Unavailab le BLAIR ([place]), Adry BALLARD MD Unavailable Unavailab le BLAIR ([place]), Adry BALLARD MD Unavailable Unavailab le BLAIR ([place]), Adry BALLARD MD Unavailable Unavailab le BLAIR ([place]), Adry BALLARD MD Unavailable Unavailab le BLAIR ([place]), Adry BALLARD MD Unavailable Unavailab le BLAIR ([place]), Adry BALLARD MD Unavailable Unavailab le BLAIR ([place]), Adry BALLARD MD Unavailable Unavailab le BLAIR ([place]), Adry BALLARD MD Unavailable Unavailab le BLAIR ([place]), Adry BALLARD MD Unavailable Unavailab le BLAIR ([place]), Adry BALLARD MD Unavailable Unavailab le BLAIR ([place]), Adry BALLARD MD Unavailable Unavailab le BLAIR ([place]), Adry BALLARD MD Unavailable Unavailab le BLAIR ([place]), Adry BALLARD MD Unavailable Unavailab le BLAIR ([place]), Adry BALLARD MD Unavailable Unavailab le BLAIR ([place]), Adry BALLARD MD Unavailable Unavailab le SOLIS, Noble PENN MD Unavailable Unavailable SOLIS, Noble PENN MD Unavailable Unavailable SOLIS, Noble PENN MD Unavailable Unavailable SOLIS, Noble PENN MD Unavailable Unavailable SOLIS, Noble PENN MD Unavailable Unavailable SOLIS, P ISAMAR MD Unavailable Unavailable SOLIS, P ISAMAR MD Unavailable Unavailable SOLIS, P IASMAR MD Unavailable Unavailable SOLIS, P ISAMAR MD Unavailable Unavailable SOLIS, P ISAMAR MD Unavailable Unavailable SOLIS, P ISAMAR MD Unavailable Unavailable SOLIS, P ISAMAR MD Unavailable Unavailable SOLIS, P ISAMAR MD Unavailable Unavailable SOLIS, P ISAMAR MD Unavailable Unavailable SOLIS, P ISAMAR MD Unavailable Unavailable SOLIS, P ISAMAR MD Unavailable Unavailable SOLIS, P ISAMAR MD Unavailable Unavailable SOLIS, P ISAMAR MD Unavailable Unavailable SOLIS, P ISAMAR MD Unavailable Unavailable SOLIS, P ISAMAR MD Unavailable Unavailable SOLIS, P ISAMAR MD Unavailable Unavailable SOLIS, P ISAMAR SOLIS Unavailable Unavailable SOLIS, P ISAMAR MD Unavailable Unavailable SOLIS, Noble PENN MD Unavailable Unavailable SOLIS, Noble PENN MD Unavailable Unavailable SOLIS, Noble PENN MD Unavailable Unavailable SOLIS, Noble PENN MD Unavailable Unavailable SOLIS, Noble PENN MD Unavailable Unavailable SOLIS, Noble PENN MD Unavailable Unavailable SOLIS, Noble PENN MD Unavailable Unavailable SOLIS, Noble PENN MD Unavailable Unavailable SOLIS, oNble PENN MD Unavailable Unavailable SOLIS, Noble PENN MD Unavailable Unavailable SOLIS, Noble PENN MD Unavailable Unavailable SOLIS, Noble PENN MD Unavailable Unavailable SOLIS, Noble PENN MD Unavailable Unavailable SOLIS, Noble PENN MD Unavailable Unavailable SOLIS, Noble PENN MD Unavailable Unavailable SOLIS, Noble PENN MD Unavailable Unavailable SOLIS, Noble PENN MD Unavailable Unavailable SOLIS, Noble PENN MD Unavailable Unavailable SOLIS, Noble PENN MD Unavailable Unavailable SOLIS, Noble PENN MD Unavailable Unavailable SOLIS, Noble PENN MD Unavailable Unavailable SOLIS, Noble PENN MD Unavailable Unavailable SOLIS, Noble PENN MD Unavailable Unavailable SOLIS, Noble PENN MD Unavailable Unavailable SOLIS, Noble PENN MD Unavailable Unavailable SOLIS, Noble PENN MD Unavailable Unavailable SOLIS, Noble PENN MD Unavailable Unavailable SOLIS, Noble PENN MD Unavailable Unavailable SOLIS, Noble PENN MD Unavailable Unavailable SOLIS, P ISAMAR SOLIS Unavailable Unavailable SOLIS, Noble PENN MD Unavailable Unavailable SOLIS, P ISAMAR SOLIS Unavailable Unavailable SOLIS, P ISAMAR MD Unavailable Unavailable SOLIS, P ISAMAR MD Unavailable Unavailable SOLIS, P ISAMAR MD Unavailable Unavailable SOLIS, P ISAMAR MD Unavailable Unavailable SOLIS, P ISAMAR MD Unavailable Unavailable SOLIS, P ISAMAR MD Unavailable Unavailable SOLIS, P ISAMAR MD Unavailable Unavailable SOLIS, P ISAMAR MD Unavailable Unavailable SOLIS, P ISAMAR MD Unavailable Unavailable SOLIS, P ISAMAR MD Unavailable Unavailable SOLIS, P ISAMAR MD Unavailable Unavailable SOLIS, P ISAMAR MD Unavailable Unavailable SOLIS, P ISAMAR MD Unavailable Unavailable SOLIS, P ISAMAR MD Unavailable Unavailable SOLIS, P ISAMAR MD Unavailable Unavailable SOLIS, P ISAMAR MD Unavailable Unavailable SOLIS, P ISAMAR MD Unavailable Unavailable SOLIS, P ISAMAR MD Unavailable Unavailable SOLIS, P ISAMAR MD Unavailable Unavailable SOLIS, P ISAMAR MD Unavailable Unavailable SOLIS, P ISAMAR MD Unavailable Unavailable SOLIS, P ISAMAR MD Unavailable Unavailable SOLIS, P ISAMAR MD Unavailable Unavailable SOLIS, P ISAMAR MD Unavailable Unavailable SOLIS, P ISAMAR MD Unavailable Unavailable SOLIS, P ISAMAR MD Unavailable Unavailable SOLIS, P ISAMAR SOLIS Unavailable Unavailable SOLIS, P ISAMAR MD Unavailable Unavailable SOLIS P ISAMAR SOLIS Unavailable Unavailable SOLIS, P ISAMAR SOLIS Unavailable Unavailable SOLIS, Noble PENN MD Unavailable Unavailable SOLIS, P ISAMAR MD Unavailable Unavailable SOLISNoble MD Unavailable Unavailable SOLISNoble MD Unavailable Unavailable SOLISNoble MD Unavailable Unavailable SOLISNoble MD Unavailable Unavailable SOLISNoble MD Unavailable Unavailable SOLISNoble MD Unavailable Unavailable SOLIS P ISAMAR MD Unavailable Unavailable Donnell Izaguirre MD Unavailable Unavailable Donnell Izaguirre MD Unavailable Unavailable Donnell Izaguirre MD Unavailable Unavailable Donnell Izaguirre MD Unavailable Unavailable Donnell Izaguirre MD Unavailable Unavailable Donnell Izaguirre MD Unavailable Unavailable Donnell Izaguirre MD Unavailable Unavailable Donnell Izaguirre MD Unavailable Unavailable Donnell Izaguirre MD Unavailable Unavailable Donnell Izaguirre MD Unavailable Unavailable Donnell Izaguirre MD Unavailable Unavailable Donnell Izaguirre MD Unavailable Unavailable VaneenenaamDonnell MD Unavailable Unavailable Vaneenenaam, Donnell Walsh MD Unavailable Unavailable VaneenenaamDonnell MD Unavailable Unavailable Vaneenenaam, Donnell Walsh MD Unavailable Unavailable Vaneenenaam, Donnell Walsh MD Unavailable Unavailable Vaneenenaam, Donnell Walsh MD Unavailable Unavailable Vaneenenaam, Donnell Walsh MD Unavailable Unavailable Vaneenenaam, Donnell Walsh MD Unavailable Unavailable Vaneenenaam, Donnell Walsh MD Unavailable Unavailable Vaneenenaam, Donnell Walsh MD Unavailable Unavailable Vaneenenaam, Donnell Walsh MD Unavailable Unavailable Vaneenenaam, Donnell Walsh MD Unavailable Unavailable Vaneenenaam, Donnell Walsh MD Unavailable Unavailable Vaneenlucíaam, Donnell Walsh MD Unavailable Unavailable Vaneenenaam, Donnell Walsh MD Unavailable Unavailable Vaneenenaam, Donnell Walsh MD Unavailable Unavailable Vaneenenaam, Donnell Walsh MD Unavailable Unavailable Vaneenlucíaam, Donnell Walsh MD Unavailable Unavailable Vaneenlucíaam, Donnell Walsh MD Unavailable Unavailable Vanmaxine, Donnell Walsh MD Unavailable Unavailable Vanpeggyam, Donnell Walsh MD Unavailable Unavailable Vaneenlucíaam, Donnell Walsh MD Unavailable Unavailable Vaneenlucíaam, Donnell Walsh MD Unavailable Unavailable Vaneenlucíaam, Donnell Walsh MD Unavailable Unavailable Vaneenlucíaam, Donnell Walsh MD Unavailable Unavailable Vaneenlucíaam, Donnell Walsh MD Unavailable Unavailable Vanpeggyam, Donnell Walsh MD Unavailable Unavailable Vanpeggyam, Donnell Walsh MD Unavailable Unavailable Vanpeggyam, Donnell Walsh MD Unavailable Unavailable Vanpeggyam, Donnell Walsh MD Unavailable Unavailable Vanpeggyam, Donnell Walsh MD Unavailable Unavailable Vanmaxine, Donnell Walsh MD Unavailable Unavailable Vanmaxine, Donnell Walsh MD Unavailable Unavailable VanDonnell goodman MD Unavailable Unavailable Nick MCPHERSON MD Unavailable Unavailable Nick MCPHERSON MD Unavailable Unavailable Nick MCPHERSON MD Unavailable Unavailable Nick MCPHERSON MD Unavailable Unavailable Nick MCPHERSON MD Unavailable Unavailable Nick MCPHERSON MD Unavailable Unavailable Nick MCPHERSON MD Unavailable Unavailable Nick MCPHERSON MD Unavailable Unavailable Nick MCPHERSON MD Unavailable Unavailable Nick MCPHERSON MD Unavailable Unavailable Nick MCPHERSON MD Unavailable Unavailable Ncik MCPHERSON MD Unavailable Unavailable Nick MCPHERSON MD Unavailable Unavailable Nick MCPHERSON MD Unavailable Unavailable Nick MCPHERSON MD Unavailable Unavailable Nick MCPHERSON MD Unavailable Unavailable Nick MCPHERSON MD Unavailable Unavailable Nick MCPHERSON MD Unavailable Unavailable VIDA, Nick LYNNE MD Unavailable Unavailable VIDA, Nick LYNNE MD Unavailable Unavailable VIDA, Nick LYNNE MD Unavailable Unavailable VIDA, Nick LYNNE MD Unavailable Unavailable VIDA, Nick LYNNE MD Unavailable Unavailable VIDA, Nick LYNNE MD Unavailable Unavailable VIDA, Nick LYNNE MD Unavailable Unavailable VIDA, Nick LYNNE MD Unavailable Unavailable VIDA, Nick LYNNE MD Unavailable Unavailable VIDA, Nick LYNNE MD Unavailable Unavailable VIDA, Nick LYNNE MD Unavailable Unavailable VIDA, Nick LYNNE MD Unavailable Unavailable VIDA, Nick LYNNE MD Unavailable Unavailable VIDA, Nick LYNNE MD Unavailable Unavailable VIDA, Nick LYNNE MD Unavailable Unavailable VIDA, Nick LYNNE MD Unavailable Unavailable VIDA, Nick LYNNE MD Unavailable Unavailable VIDA, Nick LYNNE MD Unavailable Unavailable VIDA, Nick LYNNE MD Unavailable Unavailable VIDA, Nick LYNNE MD Unavailable Unavailable VIDA, Nick LYNNE MD Unavailable Unavailable VIDA, Nick LYNNE MD Unavailable Unavailable VIDA, Nick LYNNE MD Unavailable Unavailable VIDA, Nick LYNNE MD Unavailable Unavailable VIDA, Nick LYNNE MD Unavailable Unavailable VIDA, Nick LYNNE MD Unavailable Unavailable VIDA, Nick LYNNE MD Unavailable Unavailable VIDA, Nick LYNNE MD Unavailable Unavailable VIDA, Nick LYNNE MD Unavailable Unavailable VIDA, Nick LYNNE MD Unavailable Unavailable VIDA, Nick LYNNE MD Unavailable Unavailable VIDA, Nick LYNNE MD Unavailable Unavailable VIDA, Nick LYNNE MD Unavailable Unavailable VIDA, Nick LYNNE MD Unavailable Unavailable VIDA, Nick LYNNE MD Unavailable Unavailable VIDA, Nick LYNNE MD Unavailable Unavailable VIDA, Nick LYNNE MD Unavailable Unavailable VIDA, Nick LYNNE MD Unavailable Unavailable VIDA, Nick LYNNE MD Unavailable Unavailable VIDA, Nick LYNNE MD Unavailable Unavailable VIDA, Nick LYNNE MD Unavailable Unavailable VIDA, Nick LYNNE MD Unavailable Unavailable VIDA, Nick LYNNE MD Unavailable Unavailable VIDA, Nick LYNNE MD Unavailable Unavailable VIDA, Nick LYNNE MD Unavailable Unavailable VIDA, Nick LYNNE MD Unavailable Unavailable VIDA, Nick LYNNE MD Unavailable Unavailable VIDA, Nick LYNNE MD Unavailable Unavailable VIDA, Nick LYNNE MD Unavailable Unavailable VIDA, Nick LYNNE MD Unavailable Unavailable VIDA, Nick LYNNE MD Unavailable Unavailable VIDA, Nick LYNNE MD Unavailable Unavailable VIDA, Nick LYNNE MD Unavailable Unavailable VIDA, Nick LYNNE MD Unavailable Unavailable VIDA, Nick LYNNE MD Unavailable Unavailable VIDA, Nick LYNNE MD Unavailable Unavailable VIDA, Nick LYNNE MD Unavailable Unavailable VIDA, Nick LYNNE MD Unavailable Unavailable VIDA, Nick LYNNE MD Unavailable Unavailable VIDA, Nick LYNNE MD Unavailable Unavailable VIDA, Nick LYNNE MD Unavailable Unavailable VIDA, Nick LYNNE MD Unavailable Unavailable VIDA, Nick LYNNE MD Unavailable Unavailable VIDA, Nick LYNNE MD Unavailable Unavailable VIDA, Nick LYNNE MD Unavailable Unavailable VIDA, Nick LYNNE MD Unavailable Unavailable VIDA, Nick LYNNE MD Unavailable Unavailable VIDA, Nick LYNNE MD Unavailable Unavailable VIDA, Nick LYNNE MD Unavailable Unavailable VIDA, Nick LYNNE MD Unavailable Unavailable VIDA, Nick LYNNE MD Unavailable Unavailable VIDA, Nick LYNNE MD Unavailable Unavailable VIDA, Nick LYNNE MD Unavailable Unavailable VIDA, Nick LYNNE MD Unavailable Unavailable VIDA, Nick LYNNE MD Unavailable Unavailable VIDA, Nick LYNNE MD Unavailable Unavailable VIDA, Nick LYNNE MD Unavailable Unavailable VIDA, Nick LYNNE MD Unavailable Unavailable VIDA, Nick LYNNE MD Unavailable Unavailable VIDA, Nick LYNNE MD Unavailable Unavailable VIDA, Nick LYNNE MD Unavailable Unavailable VIDA, Nick LYNNE MD Unavailable Unavailable VIDA, Nick LYNNE MD Unavailable Unavailable VIDA, Nick LYNNE MD Unavailable Unavailable VIDA, Nick LYNNE MD Unavailable Unavailable VIDA, Nick LYNNE MD Unavailable Unavailable VIDA, Nick LYNNE MD Unavailable Unavailable VIDA, Nick LYNNE MD Unavailable Unavailable VIDA, Nick LYNNE MD Unavailable Unavailable VIDA, Nick LYNNE MD Unavailable Unavailable VIDA, Nick LYNNE MD Unavailable Unavailable VIDA, Nick LYNNE MD Unavailable Unavailable VIDA, Nick LYNNE MD Unavailable Unavailable VIDA, Nick LYNNE MD Unavailable Unavailable VIDA, Nick LYNNE MD Unavailable Unavailable VIDA, Nick LYNNE MD Unavailable Unavailable VIDA, Nick LYNNE MD Unavailable Unavailable VIDA, Nick LYNNE MD Unavailable Unavailable VIDA, Nick LYNNE MD Unavailable Unavailable VIDA, Nick LYNNE MD Unavailable Unavailable VIDA, Nick LYNNE MD Unavailable Unavailable VIDA, Nick LYNNE MD Unavailable Unavailable VIDA, Nick LYNNE MD Unavailable Unavailable VIDA, Nick LYNNE MD Unavailable Unavailable VIDA, Nick LYNNE MD Unavailable Unavailable VIDA, Nick LYNNE MD Unavailable Unavailable VIDA, Nick LYNNE MD Unavailable Unavailable VIDA, Nick LYNNE MD Unavailable Unavailable VIDA, Nick LYNNE MD Unavailable Unavailable VIDA, Nick LYNNE MD Unavailable Unavailable VIDA, Nick LYNNE MD Unavailable Unavailable VIDA, J GUERA MD Unavailable Unavailable VIDA, J GUERA MD Unavailable Unavailable VIDA, J GUERA MD Unavailable Unavailable VIDA, J GUERA MD Unavailable Unavailable VIDA, J GUERA MD Unavailable Unavailable VIDA, J GUERA MD Unavailable Unavailable VIDA, J GUERA MD Unavailable Unavailable VIDA, J GUERA MD Unavailable Unavailable VIDA, J GUERA MD Unavailable Unavailable VIDA, J GUERA MD Unavailable Unavailable VIDA, J GUERA MD Unavailable Unavailable VIDA, J GUERA MD Unavailable Unavailable VIDA, J GUERA MD Unavailable Unavailable VIDA, J GUERA MD Unavailable Unavailable VIDA, J GUERA MD Unavailable Unavailable VIDA, J GUERA MD Unavailable Unavailable VIDA, J GUERA MD Unavailable Unavailable VIDA, J GUERA MD Unavailable Unavailable VIDA, J GUERA MD Unavailable Unavailable VIDA, J GUERA MD Unavailable Unavailable VIDA, J GUERA MD Unavailable Unavailable VIDA, J GUERA MD Unavailable Unavailable VIDA, J GUERA MD Unavailable Unavailable VIDA, J GUERA MD Unavailable Unavailable VIDA, J GUERA MD Unavailable Unavailable VIDA, J GUERA MD Unavailable Unavailable VIDA, J GUERA MD Unavailable Unavailable VIDA, J GUERA MD Unavailable Unavailable VIDA, J GUERA MD Unavailable Unavailable VIAD, J GUERA MD Unavailable Unavailable VIDA, J GUERA MD Unavailable Unavailable VIDA, J GUERA MD Unavailable Unavailable VIDA, J GUERA MD Unavailable Unavailable VIDA, J GUERA MD Unavailable Unavailable VIDA, J GUERA MD Unavailable Unavailable VIDA, J GUERA MD Unavailable Unavailable VIDA, J GUERA MD Unavailable Unavailable Vince Bibiana Unavailable Unavailable Re-disclosure Warning The records that you are about to access may contain information from federally-assisted alcohol or drug abuse programs. If such information is present, then the following federally mandated warning applies: This information has been disclosed to you from records protected by federal confidentiality rules (42 CFR part 2). The federal rules prohibit you from making any further disclosure of this information unless further disclosure is expressly permitted by the written consent of the person to whom it pertains or as otherwise permitted by 42 CFR part 2. A general authorization for the release of medical or other information is NOT sufficient for this purpose. The Federal rules restrict any use of the information to criminally investigate or prosecute any alcohol or drug abuse patient.The records that you are about to access may contain highly sensitive health information, the redisclosure of which is protected by Article 27-F of the [facility] Public Health law. If you continue you may have access to information: Regarding HIV / AIDS; Provided by facilities licensed or operated by the [facility] Office of Mental Health; or Provided by the [facility] Office for People With Developmental Disabilities. If such information is present, then the following [facility] mandated warning applies: This information has been disclosed to you from confidential records which are protected by state law. State law prohibits you from making any further disclosure of this information without the specific written consent of the person to whom it pertains, or as otherwise permitted by law. Any unauthorized further disclosure in violation of state law may result in a fine or fci sentence or both. A general authorization for the release of medical or other information is NOT sufficient authorization for further disc losure. Family History Family Member Name Family Member Gender Family Member Status Date o f Status Description Data Source(s) Unknown Male Problem [facility] ([facility] Unknown Male Problem MEDENT ([facility]) Encounters Encounter Providers Location Date Indications Data Source(s ) Unknown [address] [facility] [address] 09/30/2021 12:00:00 AM EST eCW1 ([facility]) Outpatient Attender: GUERA MCPHERSON MD BF-BF 09/24/2021 07:22:16 AM EST [facility] Unknown [address] [facility] [address] 04/02/2021 12:00:00 AM EDT eCW1 ([facility]) Attender: NELLIE PINTO ([place]) MDReferrer: Octavio MCPHERSON MD 03/25/2021 08:21:05 PM EDT [facility] Attender: NELLIE PINTO ([place]) MDReferrer: Octavio MCPHERSON MD 03/25/2021 08:21:05 PM EDT [facility] Attender: NELLIE PINTO ([place]) MDReferrer: Octavio MCPHERSON MD 03/25/2021 08:21:05 PM EDT [facility] Attender: NELLIE ENG) MDReferrer: Octavio MCPHERSON MD 03/25/2021 08:21:05 PM EDT [facility] Attender: NELLIE PINTO (GARCÍA CLAUDIA) MDAttender: Bibiana ClarkeReferrer: GUERA MCPHERSON MD 03/25/2021 08:21:05 PM EDT [facility] Attender: NELLIE PINTO (GARCÍA CLAUDIA) MDAttender: Bibiana ClarkeReferrer: GUERA MCPHERSON MD 03/25/2021 08:21:05 PM EDT [facility] Office Visit, Est Pt., Level 4 PC [address] [place] [address] 03/19/2021 12:00:00 AM EDT eCW1 ([facility]) OFFICE OUTPATIENT VISIT 15 MINUTES Attender: Donnell hauser MD Physical Therapy 02/03/2021 09:00:00 AM EDT MEDENT ([facility]) Attender: NELLIE ENG) MDReferrer: Octavio MCPHERSON MD 12/17/2020 08:21:02 PM EST [facility] Attender: NELLIE ENG) MDReferrer: Octavio MCPHERSON MD 12/17/2020 08:21:02 PM EST [facility] Attender: NELLIE ENG) MDReferrer: Octavio MCPHERSON MD 12/17/2020 08:21:02 PM EST [facility] Attender: NELLIE ENG) MDReferrer: Octavio MCPHERSON MD 12/17/2020 08:21:02 PM EST [facility] Attender: NELLIE ENG) MDReferrer: Mulu ELY MD 12/17/2020 08:21:02 PM EST [facility] Attender: NELLIE ENG) MDReferrer: Mulu ELY MD 12/17/2020 08:21:02 PM EST [facility] Unknown [address] [facility], [facility] [address] 10/16/2020 12:00:00 AM EST eCW1 ([facility]) Office Visit, Est Pt., Level 4 PC [address] [place] [address] 09/18/2020 12:00:00 AM EST eCW1 ([facility]) Outpatient Attender: GUERA MCPHERSON MD BF-BF 09/17/2020 12:00:00 AM EST [facility] Immunizations Vaccine Date Status Description Data Source(s) influenza, recombinant, quadrIvalent,injectable, prese rvative free 09/18/2020 03:33:00 PM EST completed eCW1 ([facility]) influenza, recombinant, quadrIvalent,injectable, prese rvative free 09/18/2020 03:33:00 PM EST completed eCW1 ([facility]) influenza, recombinant, quadrIvalent,injectable, prese rvative free 09/18/2020 03:33:00 PM EST completed eCW1 ([facility]) influenza, recombinant, quadrIvalent,injectable, prese rvative free 09/18/2020 03:33:00 PM EST completed eCW1 ([facility]) influenza, recombinant, quadrIvalent,injectable, prese rvative free 09/18/2020 03:33:00 PM EST completed eCW1 ([facility]) Medications Medication Brand Name Start Date Product Form Dose Route Admi nistrative Instructions Pharmacy Instructions Status Indications Reaction Description Data Source(s) [place]-3 Fatty Acids (OMEGA-3 FISH OIL PO) drug or medication Oral aborted Take by mouth daily [facility] Insurance Providers Payer name Policy type / Coverage type Policy ID Covered libertarian ID Covered libertarian's relationship to rasheed Policy Rasheed Plan Information O BLUE [id number] SP [id number] MEDICARE [id number] SP [id number] [place] Medicare [place] Med[place] Part B [id number] Self 1 [id number] MEDICARE 4 [id number] 1 [id number] A Medicare Dme Supplies Medigap Part B [id number] Self 1 [id number] [place] Medigap Part B [id number] Self Y [id number] [place] (pr[place] Medigap Part B [id number] Self M [id number] [place] (pr) Medigap Part B [id number] Self A [id number] [facility] [id number] 0 [id number] Blue Shield MCR Advantage Medigap Part B [id number] Self Z [id number] [place] MEDICARE BLUE PPO G [id number] Self [id number] MEDICARE 11 [id number] 1 [id number] Blue Shield MCR Advantage Commercial [id number] Self V [id number] [facility] MEDICARE [id number] [employer] BCBS MEDICARE [id number] Valeri [id number] EXCE[employer] BCBS MEDICARE Medicare [id number] [facility] MEDICARE [id number] MEDICARE CINDA O [id number] S [id number] BCBS MCARE BLUE PPO O [id number] S [id number] BCBS MCARE BLUE PPO O [id number] S [id number] [employer] [facility] [place] [id number] SP [id number] MEDICARE BLUE PPO [id number] SP [id number] MEDICARE BLUE PPO P [id number] S [id number] MEDICARE BLUE PPO 306 [id number] SP [id number] [facility] ANSI-Medicare Part B [id number] ANSI-Medicare Part B [id number] ANSI-Medicare Part B [id number] ANSI-Medicare Part B [id number] BS [place] Commercial [id number] Self V [id number] [facility] Medicare [facility] ANSI-Medicare Part B [id number] ANSI-Medicare Part B [id number] ANSI-Medicare Part B [id number] ANSI-Medicare Part B [id number] [facility] B [id number] S [id number] SELF PAY UNAVAILABLE UNAVAILA BLE SELF PAY 2 UNAVAILABLE 1 UNAVAILA BLE [employer] [facility] [place] 2 [id number] 1 M [id number] Problems, Conditions, and Diagnoses Code Display Name Description Problem Type Effective Dates Data Source(s) E78.00 71360893 Hypercholesteremia Problem 09/18/2020 12:00: 00 AM EST eCW1 ([facility]) I25.10 Coronary artery disease invo lving [place] coronary artery of [place] heart without angina pectoris Coronary artery disease involving [place] coronary artery [place] heart without angina pectoris [id number] 09/17/2020 12:00:00 AM EST [facility] Surgeries/Procedures Procedure Description Date Indications Data Source(s) ARTHROCENTESIS ASPIR&/INJECTION MAJOR JT/BURSA 12:00:00 AM EDT MEDENT ([facility] ) ARTHROCENTESIS ASPIR&/INJECTION MAJOR JT/BURSA 12:00:00 AM EST MEDENT ([facility] ) THERAPEUTIC PX 1/> AREAS EACH 15 MIN EXERCISES 12:00:00 AM EST MEDENT ([facility] ) THERAPEUTIC PX 1/> AREAS EACH 15 MIN EXERCISES 12:00:00 AM EST MEDENT ([facility] ) THERAPEUTIC PX 1/> AREAS EACH 15 MIN EXERCISES 12:00:00 AM EDT MEDENT ([facility] ) THERAPEUTIC PX 1/> AREAS EACH 15 MIN EXERCISES 12:00:00 AM EDT MEDENT ([facility] ) THERAPEUTIC PX 1/> AREAS EACH 15 MIN EXERCISES 12:00:00 AM EDT MEDENT ([facility] ) THERAPEUTIC PX 1/> AREAS EACH 15 MIN EXERCISES 12:00:00 AM EDT MEDENT ([facility] ) THERAPEUTIC PX 1/> AREAS EACH 15 MIN EXERCISES 12:00:00 AM EDT MEDENT ([facility]) THERAPEUTIC PX 1/> AREAS EACH 15 MIN EXERCISES 12:00:00 AM EDT MEDENT ([facility]) THERAPEUTIC PX 1/> AREAS EACH 15 MIN EXERCISES 12:00:00 AM EDT MEDENT ([facility] ) Physical Therapy Eval - Low Complexity 08/12/2020 12:0 0:00 AM EDT MEDENT ([facility] ) Results ID Date Data Source [id number] 09/30/2021 12:00:00 AM EST ALFREDO Name Value Range Interpretation Code Description Data Ruth rce(s) Supporting Document(s) SARS-CoV2 Rapid Antigen Positive [facility] This lab was ordered by [facility] and reported by [facility]. ID Date Data Source [id number] 09/24/2021 02:13:31 PM EST [facility] INFORMATIONPatient MRN Name Date of Age Gend*PT [id number] Santosh Acuna 1935 86 years M ---PT Location Admission Date/Time Visit ID Attending Provider --- --- --- --- EPI ID CSN Admitting P beronica [id number] ---Cardiology History and PhysicalName: Santosh Acuna Gender: maleDate of : 1935 Age: 86 yearsPrimary Care Provider / Referring Physician: SUSAN LINARESardiology Telemedicine VisitPatient was identified by name and date of .Verbal consent was obtained from the patient for this telemedicine visit.Patient is aware of the risks, limitations, and benefits of a telemedicinevisit.This telemedicine assessment was conducted remotely with the assistance ofelectroniccommunication technology: Telephone Only Codes 88224: 21- 30 minutes of medicaldiscussion: Telephone OnlyCurrent HistoryChief Complaint: This is a Telemedicine visitHPI:This patient is a 86 years male with the following updated problem list:1. CAD s/p LAD stent in 2007. Last stress echo 2018 was normal2. HTN3. Hyperlipidemia This is a follow up visit, he has been very active without symtpomsReview of Systems General Denies dizziness or lightheadedness. Denies any recent, unexpectedweight changes. HEENT Denies any loss or change of vision. Denies tinnitus. Respiratory Denies PND, orthopnea, POP, hemoptysis, cough, or shortness ofbreath. Cardiac Denies chest pain or pressure, denies palpitations GI Denies melena, hematochezia, nausea, or vomiting. MS Denies any lower extremity edema. Neuro Denies speech, motor, or sensory impairment. Psych Denies depression or anxiety. Endo Denies polyuria or polydipsia, denies temperature intolerance. Derm Denies diaphoresis, non-healing skin woundsPast HistoryPast Medical History:Diagnosis Date Gout Hyperlipidemia HypertensionHistory reviewed. No pertinent surgical history.Family HistoryProblem Relation Age of Onset Cancer FatherSocial HistorySocioeconomic History Marital status: Spouse name: Not on file Number of children: Not on file Years of education: Not on file Highest education level: Not on fileOccupational History Not on fileTobacco Use Smoking status: Former Smoker Smokeless tobacco: Never UsedSubstance and Sexual Activity Alcohol use: Yes Comment: 1 drink a day Drug use: No Sexual activity: Not on fileOther Topics Concern Bike Helmet Not Asked History of Falls Not Asked Self-Exams Not Asked Caffeine Concern Not Asked Hobby Hazards Not Asked Sleep Concern Not Asked Daily Calcium Supplement Not Asked Lead Exposure Not Asked Special Diet Not Asked Daily Vitamin D Supplement Not Asked Service Not Asked Stress Concern Not Asked Domestic Violence in home Not Asked Radon exposure Not Asked Weight Concern Not Asked Exercise Not Asked Seat Belt Not Asked Well water Not Asked Firearms in home Not AskedSocial History Narrative Not on fileSocial Determinants of HealthFinancial Resource Strain: Difficulty of Paying Living Expenses:Food Insecurity: Worried About Running Out of Food in the Last Year: Ran Out of Food in the Last Year:Transportation Needs: Lack of Transportation (Medical): Lack of Transportation (Non-Medical):Physical Activity: Days of Exercise per Week: Minutes of Exercise per Session:Stress: Feeling of Stress :Social Connections: Frequency of Communication with Friends and Family: Frequency of Social Gatherings with Friends and Family: Attends Caodaism Services: Active Member of Clubs or Organizations: Attends Club or Organization Meetings: Marital Status:Intimate Partner Violence: Fear of Current or Ex-Partner: Emotionally Abused: Physically Abused: Sexually Abused:Medications and AllergiesALLERGIES/SENSITIVITIES: Patient has no known drug allergies.Current Outpatient Medications: Acetaminophen (TYLENOL PO), Take by mouth as needed, Disp: , Rfl: allopurinol (ZYLOPRIM) 300 MG tablet, Take 300 mg by mouth daily, Disp: ,Rfl: Alpha-Lipoic Acid 200 MG CAPS, Take by mouth daily, Disp: , Rfl: amLODIPine (NORVASC) 5 MG tablet, Take 2.5 mg by mouth daily , Disp: , Rfl: Ascorbic Acid (VITAMIN C) 1000 MG tablet, Take 1,000 mg by mouth daily, Disp:, Rfl: aspirin EC 81 MG EC tablet, Take 81 mg by mouth daily, Disp: , Rfl: chlorthalidone (HYGROTEN) 25 MG tablet, Take 12.5 mg by mouth //WED/WED, Disp: , Rfl: esomeprazole (NEXIUM) 40 MG capsule, Take 20 mg by mouth as needed , Disp: ,Rfl: lisinopril (PRINIVIL,ZESTRIL) 20 MG tablet, Take 20 mg by mouth daily, Disp:, Rfl: nitroglycerin (NITROSTAT) 0.4 MG SL tablet, Place 0.4 mg under the tongueevery 5 (five) minutes as needed for chest pain, Disp: , Rfl: OLIVE LEAF PO, Take by mouth daily, Disp: , Rfl: Psyllium (METAMUCIL FIBER PO), Take by mouth as needed, Disp: , Rfl: rosuvastatin (CRESTOR) 5 MG tablet, Take 5 mg by mouth daily, Disp: , Rfl: TURMERIC PO, Take by mouth daily, Disp: , Rfl: Simethicone 125 MG TABS, Take by mouth as needed , Disp: , Rfl:PhysicalPHYSICAL EXAM: Deferred due to Telemedicine encounterWt 88.9 kg (196 lb)DiagnosticsLabNoneImaging/Testing: NoneEKG: NoneAssessment & PlanASSESSMENT/PLAN:1. Coronary artery disease: The patient has no symptoms and knows to contact usif he develops any symptoms or to call 911 for emergencies.2. Dyslipidemia: She is followed by primary care and is on a statin3. Hypertension: This has been well controlledI have spent 15 minutes with the patient, counseling/coordinating the patient'scare.I discussed the above listed diagnoses and discussed Prognosis, Managementoption risks and benefits, Treatment/management instructions, Compliance andRisk Factor ReductionFollow up has been arranged and the patient knows to call if any issues arisebetween now and then, all question were answered.Signature: COLLIN Hdzate: September 24, 2021Time: 1:46 PMThis document or parts of this document, were dictated using [employer]. A reasonable attempt at proofreading has been made to minimize errors.Please call with any questions or corrections. Name Value Range Interpretation Code Description Data Ruth rce(s) Supporting Document(s) ID Date Data Source [id number] 01/30/2021 09:15:00 AM EDT [facility] Name Value Range Interpretation Code Description Data Ruth rce(s) Supporting Document(s) EGD-Colonoscopy [facility] FOWIQw0kKeNGRcWlFDAyThrZYYtkDDhiNEPqL7P1GFamMn7BJTkoayZzHKOiIh3+LAGuGM4ogw4xRQXk gMy [file] azure architect+zPv7MdQbgK+MIjkYvXaLn9+oyBOepG4pqdtLCpXqq8v3rtiKEH7sIkY/MI7k+/3qVCAJo/Yg2If5d [file] FR9JGNiD59RcgIoPlcRnge5okZDy8awDsuI+TuIpcTATdTbuzIHF3qrnzyIlUiLMG1hoQtU5VI+VALDES+ fwvPR4Sg3jbkRJXWk3KyTg4ssK12aeNPGkmmwP6TBA XPf7gsoeMD78vwNAHE/zMui2VBuvo3kVZ4yCS/xmU4nptx0/2W3mT9KVxnPDfRwhjgMR0YPOu/8+LpVB fmVoSh3LbkLWcbTuDEkLoe0Z0zo40dDdSJt8WFjgoXPsZNuY/XExXwkCAKDprrlReBOc0opktPjiK1qE HKuuO6nxThpVncbbf4lx3jdeVe9MfTME3qSf+fZb76 djRLDSA5wG2leajNkxZOiXa3fs01l9unEf7eBwnGC+KJs7DuFNbZLYVcudHGH/wj0nj30XzDBX9Ghfzh ecxwPzPDbyBam7eOuJkgoXwVJTbmJHw7bCfy+rolU6qU7MQfbkku0AmpzTK6D0UeGh9lAfnWismq+ks+ ZFeC+FgrZqbDzYJ0DOMIltjN5awiadsVnZvfYFcDbM 6L4fINUjawn/GHZ+2IJZ+4XysGgnQ2r9V9ULnxsr1gq3czzgdUd2LUrpTRelJ+ztl3XTfqpLrrhSEHCh mjgfG7JBvOMGWCeLO0UlK/Acu6+r2n818eRi4cIDAny4DFkbNIsPMnztkvnqDVes9LRB+lyEKNMFy8VW rHTJwhr8WfmsFv5rZ69erKrBDnfpv2M/xAc7ApbINf KIZ2wTURNvmQQvVp/Lm5sTa4zjJx/QxGtTailT/uZpfsenyWsvlkTgExhAW+yu7f2QudKTDZlQSaR7Gb dIkg6HsGBghyxjRbWmqTvtvlLfdyp+0ehwz5dMwIJqTV5NUZZwxXEA5oX7q9MiZ8YMPW9j490spB+bench worker binding [file] assistant professor of biology+Cm/+NkAGn3psfHsOHpCEsAXgMZ+UJYTIh/yo6l [file] NzNuHbsg0qH2fq9WuYUZUMtdkfOtp2VOAFqYP3SApzPtMwHnTBR2abHhGTvLw01v2ESUnmvN3Y+JOSÉ+nY [file] owzdM6VxH/yIHqxv+p4GDbiUt9F+2vMkqIbe7oWXG3Tj99Zs/Bt+YUc1ctFeIexL3yPP+integrated circuits inspector+K8p6UQz [file] ijSe3gkWA+vp sales/Ywpd3W/3KeuQtUnRngrVcRGdabtIT [file] rb2ilwbLbxThgolLP89P5zBxe+1FnJBxKhsVSwR5a7TObynY+2Hy8p9qgzbhIwf3VGh3bZvoeuQI+Mary Anne [file] senior vice president/YIxStVNHNFAUhSupEh0Euav/MMGpi4hOhpUQI3Pa9vgeU5sgJ/PKyh9HwIH5NaLJBAPzYqgac2nl DlM2ZIWwkJuVMh2Y/7PDPRHJsZOEnycFHDi4T8vlNt6I2bKrZItmmu5I6yj1I2YmSERAf9dmBY9tpf2h 3IhYzhPK3YIjetbSTRXvR1JDCUf3YRzRmfXN+dwWkW /bNSOEqjGmTFJ96MyBGbuHLmS018j1teunFpt4cZ0rLCRsde/sHcCDdCUefY4Xr8PQIwPfUdzD2HWFCp zUh7IxI1+PEaM+TQ7UI9hymt0sY7Th/rdvtz156Gw7NAsEdtzwesCGfPgIVIITKi1HAwC7PJnzdeC0N2 znH0vXlJ8mqldNgF5O/W9B/t6yhy8OElmbBrINHaba SzjdW5KJbvGFPy2qln0om2lL9WyMCg97vs1si8QJ/4NjtgVw0p2fFXuP5K5hyFAxEWRQ2iHeyf+i9C6W QwXNTgse2m6yBa7VwQtmtCIU4EBO0lKf7n4xeXKmqeb+TW0SbPxsLtlhAVsUF5NFJsGttJV3waBfnfA6 9fiIhosZ7H3AoDT1m8cmGM8YQYJcwGysAmlU52GWqF uqC1XkdTO3pTYkCVpZU2rAWa4LFnlT5VySbi+mJUT9NIr7clV6Qd6vjOdEE8nZpSJZi3SrmOMMDqItf9 hcR8kONXILB4QUo+goXQg3u7XxB/q95BfY4Osg8Q+K5jvkMCzBebcobtZjgX4mRB9Fz/lo8Z0gkx4X5h iOSMrxmhI+jeauc4+M3TudaIwGX3JYJys49IcC/bernarda [file] ja0wcGnhZ/Rocío+TQvMP7REQMMgG3FBrfAdMpx2pjhk [file] vice president tax/9pfUHtM/eN9xf/PB7dhH0dHR47FHBuoAr6hADw6steADZA3ui1k9hQXt944hROkpTHMz4mf9PG0D6 [file] ImBKJ2FsjD/NzpxMCs74DkO/q+TG6PBFMchYgQ0+bridge maintainer [file] jkYe9zFBTHA+9raxBIXNteSuLHlrWL8E6MNjG0DNotvB0kuLbRos35IMWOzzluCZF2h11lkrGKFJ9/vice president tax +lGF/xnoPspYRzY8V43OC9lOTpkQjA9+2GOK3eJCOn AVUUX7xLxUYW82ZXhm0yH0elIhIWYbmyRD3fUvW/kTdkQd/bOrP6wSMjMcEKgIC18CvzjhFgqUWh6OfK qcbX0p9jbws605AdR9xjzzuAbBRWcQ6WiMKJtF/G2pt8YgBbQHb9CIfK76x7RMP/DjxqYwRlozjnedPC VHbjtaZi/qVBMtJ2y1ORBR0UjWaaRb5bxfVXXslzNh waBgJE2fkrXFeC0jdefmxZGXCk8KRxEb956EHzZBA0S+VfkkTGpfMbBm1zKcEVj0NPPzGlyyLpPNddJH rf/DapK2+S5MI1+M4BFdtRkljRwUcyxhWnSiFBDvv23CbN3aF16M5Sk8++xSboDQ6uvPOUg7LZ8sUOr2 SZVn3xzv5bn5KwpVrUrRsugzlki9CItABEAFYd6vHw 9IA1Yydv89mOmyaBPtr1aWlpUygJ5C+CQCp2EK1IcnbpNVfKutYmRwW+2GwGPJUeeXdWFRdKbVG1WYfv /MOrZ+QGuHj+fZyZO0/RZg4YeMJs7ytIxWbgWJBSr37j7uwdSg7iKIIU1zvmi5+6zACCrmjOoVJw/9ve aw1vYI06TosL3iht/n5Xln9UfC82AEFM69Cp7ZfAR2 ycxjJ+3KxA4poJ0k8HoDoiArv1Ynrebk1lY3t70LgZH852SLr1zHnRChk0seG/wAVnxEyAuIGwCBC5IU d+Xq7rYhPaK1uqWqcacnD1BDzLWmwr5H+nBAyeavXwIpe2cPL4uL58Fvjclef7hoetsjxDRT1FXyHevp Xvm09ln85pXhYqBbO4XI6cQbLl8kc8zC13OL6UqX7Z G0dFZD4gMamxAP5KIsZmwDVgSmdpWn70a7klJsYTWl46S1dYQZdHq/freedom/ooWVxrxRfxO8bKbAkRMd90H [file] y1bWzlVU4S54L8fvUMIMQ34aG7F6NMp670O4e6xA3b ywgW59mfS/yOghDp3RuLwr4AudKC1BJiczTVeywfaz6siAG+Machine Precision Etcher/vbcep/rJVMpuT6um+qwP/9YPoxfE [file] yK6qHedhJ52PcQQaYazM1g1f+Maria Del Rosario/4gg+u7PT378gn [file] pcv7TsGxmkOfhaIXwzPld4yu5D1zb35kdjJRRUbyyvqALvu/tSowsB0C+WphB1qcrdtyBNo/BLM5y+Fiscal Analyst [file] jiLoSHdhLankenau Medical CenterJeZ+GoMo88TyiZERx65YGc3jB8bLzt7V+21xZE5jIeSBA17YbtL5IIdN1o/ozHjLwayK tk3EAECz9YCk+rP5c05mtrf3yQQg0ZDfm1XLUbuYkQ nFAGWe5pN27ldvFsfjgd+jgB3AME3JfzbgumkePWKe3ylk4BMMF75oTwTFXQasnCklawok4+iJDi5vaI uCeFrRd3mJUVqGyY0wr4zTbO9ondcXxCLG4z+g5qcBpxNhB2dcsEycfCxDE395aVrUoy1ZfedvAWkZS+ xvXES7BdT/OWYzzP7xExRn7o7GBMqj5g4A2BfNJiK9 vRwUe7+c0r6CBHZN35VB1PmLI7/Xw7Gz9n1dZH2nREyZCkRuFqPIcPS7VYCG2rs5h4bLe7PyaD42SJAN 9JRtXnVkiNzPnYUx5P4vB0L8ZXgL5uBaIVXqhSnIi7Of7eLu1DSeCakpC/t6Ez4G9/B0zmTMgv49vfbZ zq+wZqK7lvoT0J+bftpv0aMXFan2msm5Lg9zOTGowZ RCuf0QjRRqmspU+QKO7XepRYMsD245sXNhPlktf+zRna+PLylRscyibHEIGi8Qon7O/FoLE2afi9yeFP gxP/0ugNHwj5PuopIXx2tQaKnk74PDdUHJAiOhWUYFQqZGY4H+prHIJOjjqz99IAnHcHS4oQTd5+J7AI MJrsxBe+rmFOwbHgNw8JRRprt3nU1CmVkZYrD1zHgQ glYtwyNnBWrI28DzmC+/ND1uFs15mcrZNXmYCv7m99dAp44PuO7HAZo4SKtnTZt8JwA9m6oNXHQUjQLp tkm7oZxC48DVbDralOGbKgmSHA1nNBrrorsMEW3+fC5Ws+Y3XeOtf+jgonC8X7byJtiHz99GUUS0zkdv PBJqUZ0FggfvkokJ2wqz4nCkzFu+Sn4Mzku7QlbvsV w2C1awP44blY0hbCwaOpMJvOcCgF9Gipl8z7YDI1Q1p/KQ0EzLYKEoIBDA7vLyptAL5JTj6zp78L+Lenka [file] s5C9Nmwx+t1XNXpHGcca14RGAJkK+Ss8B/9Zc99sKbTd+n3iFJ14w30J4C9h3OSKl32S6F1BYDO+w+Jose ytUJHMs8QvRI6u6Rbqal/DRw48HGaC7G26YJYWpc3KirCv8EaqFc1/Ra03YfAIm8+iQaQozUIvAQUFpY bK0hMBS6UfjNjuUgr22tZ8UQQnH0DA0C2r9P9eTBZv [place] [address]+d++bNm/yl3fu4573cV/Zf54/BlU638fscQ+ifylrGVaREXiQpJZ3yDsIJaoh7ddCjy7wI [file] RpDRdsmM0qCocFKYFzS6A6KF/+7SdtOquQkmICYr384j49V+3+inyfN7rwS3aDN2FLAvizu+Radha+cCk2 0zBKEmla8CrtnRAcG8DmPQE+i8r/ywxa3ihjS+QlOooqWnfQRPhVz3No7CzRVOE/jdkzFqGajIT8d/José [file] tipple operator+yHJscrXDN5fa3U1QifpQ0fqn++bSRTJTM1cUa//Iky/k6ekPM4Wb7Ir+0iWw8uitNIrwyrDsZRyf [file] +5v+50Pkn7F8oc2Y4amkqUxodqJTlWmCpHQNmE [file] vp sales+emiI31JFWLRG1T5QUZO1nbqX5LMfli9MqrH3DPf [file] DIC3UIw+nDz2tbeM3INsdOEnHJthsK2AA+4YUcd68c+AxEEnuLfSe+consulting networking engineer+ocDDud5EzHSF9emhVBLWP6 [file] AF/PYaNQAoZnEKS0ykYfjH7VDX5cj9ToUX8Pd4VbljQ7bhVmNGl8QAy6TVsAUvUuXZ2E ID Date Data Source [id number] 12/17/2020 11:15:00 AM EST [facility] Name Value Range Interpretation Code Description Data Ruth rce(s) Supporting Document(s) Follow Up [facility] FVSQMa9fYrOCAsZbOOPuWjsFCObmHFboUWHnF0J0MIvaKy8JMPfdvpZlXZIuQy9+LKZeDV5swx3xXGNw gMy [file] Billing [file] Vkcw57Bnq95STI8UcG2w36ancVm51G0il7ggM585uU 6DoA3oYQZghkNcDS7nPBLSWGb+QsKYnWsoRz1+wl6BtD77PVEsyaoC1oboNdLQ23Xd9bHURgezwjCdA8 A2OCeHkUsSG7mI1Jq4fACy4nj8Bou3m3N6TBrxU8LS7o4mkjTl3CkHbr8XQuCtD/I1S7XmBrVPG1l3X1 9iDUgy4C7oKcMXXLaDeWmOiZjaPMw8QSRXOx3o1XWs pYMlrQohU11ZMijgBEElJJgKjsxMT27wsPVNdXbJbolXTPwP6YCiH994ZEA3q5zb5Apbf+AZHo9HX1SB pGDdyuO8Hk95gf5ZVb60TrcbqXaaygeR5t8qSZKTuz0TmwB71RGgbTEMgL7XWP9ra0NTDI2YnduL8C1r 8Ib8LAdDgeGccVw82a4xbc8dqZrG5xhIS0Xt+7sNt/ Bawioa0jSwBjHxdtrV1v1scl6LPxQ24TXeXGVdigdxrD7IOwsbyEYj7/z1ILxGsU+ELoh1cYcwtT/Nascar Racer [file] bridge maintainer+m2ZzYIbcq91MTXBf1UysEfTUW4z0/AgqMD7UWmJS7kD9eWDi5YeQlQW4PJ+9d/XL59fQqTWwsONS7 [file] Moh+2wn3dTfJk7LVUTZx+t0nC6k9nsFBXM++B9KGlWrmTbyQ3rvK0WV+PRncNL/MOLDER BENCH/Qdw31ZzmxZMGk [file] keTO6K/YtAp70IBSi6yVLXN47bQ71VDxhLoPKrvnuC+Rgk0ljmaCajo+rGdtkxEAV0RSyUaZoXprD+Senior Electrical Designer [file] cHpaqjPVxnnMDxNV4nHQ5e6Rk8S0x5Hq+uhhP/hhu5ed/KqrLF/mixing tumbler operator+mXdcyOeuWGpPzDVhBxBd85ZC3 [file] [place]+YNMMOqNBQ4NR0DXESMKwgtRCzk0ZDJTTLQJ/pFPi4NR/jcd3qqKIwMXjS/OvTugLiyXitLyrn584 [file] ZcvtKHJl+azure architect/aWbwTwsi5FypHmEbb7wFXk5v7dAbTwoh4dSsIQjmRTn6UXdvuMt1xj0upZW8QvtAe2CA [file] wXSDorwOTDTxgxXStVl1VBmT9wTdD0z0pm2Xi7+integration software developer [file] izWiEZHuJt0Km7+44A9YmvGv7cj7b9BtaBQSI0wNIGhweVaX0OnNq+u7hiDR7+CdsW1jtTt5HTxX+[place] [file] 7LG6iNsP189I9Xh//5k9rabPvbdVnWDhCZG64K+middle school football coach [file] Km+qby7Q71+qeSAUyC8yuAWQdTUoWmoByJbsP+mhZqCOnM/IDXj2Y2yUjyQk8gByYhHDNRzYSoSzZON cNeyPUXgKuhX33eaOPcYPrcG6Qhx7PpYZjDUae2a8b qKiiGlnbkhFDmCPI33wP2eHJJ38N++GZsszc8hkiUmiWZbuwfP0hBqm0MWiJqq/P+ruX2BWCf1G2Kt/1 6Pu0x9cNTZVIY2Bp3b0Nw1vi6AoHUnCFpI5fJxsyTpyw+LmmjSocB25uHQAMKN0J7VYRBbvF5BORaPBV k5GYuLK33ASWIAJhtnRDt3MrRIWRj+PDda8RHR3+/V u/bo01fw8kyv7zjZdH/7LxP9kyde5+e1Rt7soAR7aW4O2saHK3ckvVqSmm0LE8yeHCMU+jhdcy189qyb 6HPsQ6RhdHg+VrGXq6UStobZD8NN0RWeR/5j+Gm2fyAYzfPYPh94/43JB/sjv1yDHJmHrrWvkgCtJC9/ ETYQAZ89JU8gS/Wr3Ke8Zhc7Ev0KMgWEAQt4soy5b0 FSZmom1ykOBw3zMB12WIS/YC4fBvi2Ip4Ri9bj6pIqpFTEQfA/ySZ3090B/LIpURnzTecv1Ufg45C6Bt mdasXQmyx4TR97deh3gQxHlFklE6LUArERjvpaFti2f9nJCT8YBELmX47G9+bond trader/C5du1QP1zPzMkK/M [file] 78ThCDQSRoprNHZoCiA7e4cy7AEMb46bjxu43nk/José [file] Senior Electrical Designer/1VuzySWdD7sE6NgM/4idrV0DG2bX8iY/LVQ78m/ [file] XunJJiCsH8xhZPya+lNRy16LPym4/Ana Paula+4bdd8BFELghoPb+FBjtDHjyHMGxiJYTEs+4xX8X3LwhgNFU [file] tF0UM7c/S+life skills trainer/k5NvJLNqJjbv6cZqZu/jwe+tmr1E3HkAXHAY0iUBpO9+ftQ8HO59cPjsZnaFls6MdY [file] PGDfIE1JJdhJ8752L+/SkTgo++W/sCT/fgj8Rmn4XohntG+NKKpp/hk57ncY7Zn/varnish inspector/hGyXV3ohZ5Ca [file] k2IleyF5uyJuNDttZTfwZMZ3CMfaFJNRTx== ID Date Data Source [id number] 09/17/2020 10:32:26 AM EST [facility] INFORMATIONPatient MRN Name Date of Age Gend*PT [id number] Santosh Acuna 1935 85 years M ---PT Location Admission Date/Time Visit ID Attending Provider --- --- --- --- EPI ID CSN Admitting P [place] [id number] ---Cardiology History and PhysicalName: Santosh Acuna Gender: maleDate of : 1935 Age: 85 yearsPrimary Care Provider / Referring Physician: JAMAAL HECK [facility] [place] Telemedicine VisitPatient was identified by name and date of .Verbal consent was obtained from the patient for this telemedicine visit.Patient is aware of the risks, limitations, and benefits of a telemedicinevisit.This telemedicine assessment was conducted remotely with the assistance ofelectronresmioommunication technology: Telephone Only Codes 94316: 21- 30 minutes of medicaldiscussion: Telephone OnlyCurrent HistoryChief Complaint: This is a Telemedicine visitHPI:This patient is a 85 years male with the following updated problem list:1. CAD s/p LAD stent in 2007. Last stress echo 2018 was normal2. HTN3. HyperlipidemiaThis is a follow upReview of Systems General Denies dizziness or lightheadedness. Denies any recent, unexpectedweight changes. HEENT Denies any loss or change of vision. Denies tinnitus. Respiratory Denies PND, orthopnea, POP, hemoptysis, cough, or shortness ofbreath. Cardiac Denies chest pain or pressure, denies palpitations GI Denies melena, hematochezia, nausea, or vomiting. MS Denies any lower extremity edema. Neuro Denies speech, motor, or sensory impairment. Psych Denies depression or anxiety. Endo Denies polyuria or polydipsia, denies temperature intolerance. Derm Denies diaphoresis, non-healing skin woundsPast HistoryPast Medical History:Diagnosis Date Gout Hyperlipidemia HypertensionHistory reviewed. No pertinent surgical history.Family HistoryProblem Relation Age of Onset Cancer FatherSocial HistorySocioeconomic History Marital status: Spouse name: Not on file Number of children: Not on file Years of education: Not on file Highest education level: Not on fileOccupational History Not on fileSocial Needs Financial resource strain: Not on file Food insecurity: Worry: Not on file Inability: Not on file Transportation needs: Medical: Not on file Non-medical: Not on fileTobacco Use Smoking status: Former Smoker Smokeless tobacco: Never UsedSubstance and Sexual Activity Alcohol use: Yes Comment: 1 drink a day Drug use: No Sexual activity: Not on fileLifestyle Physical activity: Days per week: Not on file Minutes per session: Not on file Stress: Not on fileRelationships Social connections: Talks on phone: Not on file Gets together: Not on file Attends scientology service: Not on file Active member of club or organization: Not on file Attends meetings of clubs or organizations: Not on file [facility] ip status: Not on file Intimate partner violence: Fear of current or ex partner: Not on file Emotionally abused: Not on file Physically abused: Not on file Forced sexual activity: Not on fileOther Topics Concern Bike Helmet Not Asked History of Falls Not Asked Self-Exams Not Asked Caffeine Concern Not Asked Hobby Hazards Not Asked Sleep Concern Not Asked Daily Calcium Supplement Not Asked Lead Exposure Not Asked Special Diet Not Asked Daily Vitamin D Supplement Not Asked Service Not Asked Stress Concern Not Asked Domestic Violence in home Not Asked Radon exposure Not Asked Weight Concern Not Asked Exercise Not Asked Seat Belt Not Asked Well water Not Asked Firearms in home Not AskedSocial History Narrative Not on fileMedications and AllergiesALLERGIES/SENSITIVITIES: Patient has no known drug allergies.Current Outpatient Medications: Acetaminophen (TYLENOL PO), Take by mouth as needed, Disp: , Rfl: chlorthalidone (HYGROTEN) 25 MG tablet, Take 12.5 mg by mouth 1/2 POM/WED/WED, Disp: , Rfl: [place]-3 Fatty Acids (OMEGA-3 FISH OIL PO), Take by mouth daily, Disp: , Rfl: Psyllium (METAMUCIL FIBER PO), Take by mouth as needed, Disp: , Rfl: allopurinol (ZYLOPRIM) 300 MG tablet, Take 300 mg by mouth daily, Disp: ,Rfl: Alpha-Lipoic Acid 200 MG CAPS, Take by mouth daily, Disp: , Rfl: amLODIPine (NORVASC) 5 MG tablet, Take 2.5 mg by mouth daily , Disp: , Rfl: Ascorbic Acid (VITAMIN C) 1000 MG tablet, Take 1,000 mg by mouth daily, Disp:, Rfl: aspirin EC 81 MG EC tablet, Take 81 mg by mouth daily, Disp: , Rfl: esomeprazole (NEXIUM) 40 MG capsule, Take 20 mg by mouth as needed , Disp: ,Rfl: lisinopril (PRINIVIL,ZESTRIL) 20 MG tablet, Take 20 mg by mouth daily, Disp:, Rfl: nitroglycerin (NITROSTAT) 0.4 MG SL tablet, Place 0.4 mg under the tongueevery 5 (five) minutes as needed for chest pain, Disp: , Rfl: OLIVE LEAF PO, Take by mouth daily, Disp: , Rfl: rosuvastatin (CRESTOR) 5 MG tablet, Take 5 mg by mouth daily, Disp: , Rfl: Simethicone 125 MG TABS, Take by mouth as needed , Disp: , Rfl: TURMERIC PO, Take by mouth daily, Disp: , Rfl:PhysicalPHYSICAL EXAM: Deferred due to Telemedicine encounterThere were no vitals taken for this visit.DiagnosticsLabNoneImaging/Testing: NoneEKG: NoneAssessment & PlanASSESSMENT/PLAN:1. CAD: no symptoms and knows to call if any new symptoms or 911 for emergencies2. HTN: well controlled on current meds3. Dyslipidemia: on a statinI have spent 15 minutes with the patient, counseling/coordinating the patient'scare.I discussed the above listed diagnoses and discussed Prognosis, Ma nagementoption risks and benefits, Treatment/management instructions, Compliance andRisk Factor ReductionFollow up has been arranged and the patient knows to call if any issues arisebetween now and then, all question were answered.Signature: Guera Mcpherson MDDate: September 17, 2020Time: 10:23 AMThis document or parts of this document, were dictated using [employer]. A reasonable attempt at proofreading has been made to minimize errors.Please call with any questions or corrections. Name Value Range Interpretation Code Description Data Ruth rce(s) Supporting Document(s) Procedure Social History Code Duration Value Status Description Data Source(s ) Alcohol intake 09/24/2021 12:00:00 AM EST Current drinker of al cohol (finding) completed Current drinker of alcohol (finding) [facility] Vital Signs ID Date Data Source UNK Name Value Range Interpretation Code Description Data Source(s) Body weight 88.905 kg 88.905 kg [facility] Body weight 195.00 [lb_av] 195.00 [lb_av] MEDEN T ([facility]) Body mass index (BMI) [Ratio] 26.4 kg/m2 26.4 k g/m2 MEDENT ([facility]) Body height 72 [in_i] 72 [in_i] MEDENT ([facility]) 6'0" Body mass index (BMI) [Ratio] 27.28 kg/m2 27.28 kg/m2 eCW1 ([facility]) Body weight 195.6 [lb_av] 195.6 [lb_av] eCW1 ([facility]) Body height 71 [in_i] 71 [in_i] eCW1 ([facility]) Heart rate 83 /min 83 /min W1 ([facility]) Respiratory rate 18 /min 18 /min W1 ([facility]) Body temperature 97.4 [degF] 97.4 [degF] eCW1 ( [facility]) Systolic blood pressure 120 mm[Hg] 120 mm[Hg] e CW1 ([facility]) Diastolic blood pressure 68 mm[Hg] 68 mm[Hg] eCW1 ([facility]) Body temperature 96.4 [degF] 96.4 [degF] MEDENT ([facility]) Body weight 195.6 [lb_av] 195.6 [lb_av] eCW1 ([facility] 1928[facility]) Body height 71 [in_i] 71 [in_i] eCW1 ([facility]) Body mass index (BMI) [Ratio] 27.28 kg/m2 27.28 kg/m2 eCW1 ([facility]) Heart rate 88 /min 88 /min eCW1 ([facility]) Respiratory rate 18 /min 18 /min eCW1 ([facility]) Body temperature 97.4 [degF] 97.4 [degF] eCW1 ( [facility]) Systolic blood pressure 110 mm[Hg] 110 mm[Hg] e CW1 ([facility]) Diastolic blood pressure 70 mm[Hg] 70 mm[Hg] eCW1 ([facility]) Patient Treatment Plan of Care Planned Activity Planned Date Details Description Data Source (s) [place]-3 Fatty Acids (OMEGA-3 FISH OIL PO) [facility]
--- OUTSIDE RECORDS SUMMARY | 2021-10-08 07:40 | CCD ---
Author Author [facility] Organization [facility] Address Unknown Phone Unavailable Care Team Providers Care Feed Mill Manager Name Role Phone BLAIR (CAMILLE), Adry BALLARD [...] Adry BALLARD MD Unavailable Unavailab le BLAIR (CAMLILE), Adry BALLARD MD Unavailable Unavailab le BLAIR [...] Adry BALLARD MD Unavailable Unavailab le BLAIR (CMAILLE), Adry BALLARD MD Unavailable Unavailab le BLAIR (CAMILLE), Adry BALALRD MD Unavailable Unavailab le BLAIR (CAMILLE), Adry [...] BALLARD MD Unavailable Unavailab le BLAIR (CAMILLE), dAry BALLARD MD Unavailable Unavailab le BLAIR (CAMILLE), Adry BALLARD MD Unavailable Unavailab le BLAIR (CAMILLE), Adry BALLARD MD Unavailable Unavailab le BLAIR (CAMILLE), Adry BALLARD MD Unavailable Unavailab le BLAIR (CAMILLE), Adry BALLARD MD Unavailable Unavailab le BLAIR (CAMILLE), Adry BALLARD MD Unavailable Unavailab le BLAIR (CAMILLE), Adry BALLARD MD Unavailable Unavailab le BLAIR (CAMILLE), Adry BALLARD MD Unavailable Unavailab le BALIR (CAMILLE), Adry BALLARD MD Unavailable Unavailab le [...] Unavailable SOLIS, Noble PENN MD Unavailable Unavailable SLOIS, Noble PENN MD Unavailable Unavailable SOLIS, Noble [...] MD Unavailable Unavailable SOLISNoble MD Unavailable Unavailable SOLISNolbe MD Unavailable Unavailable SOLISNoble MD Unavailable Unavailable [...] Unavailable Unavailable Donnell Izaguirre MD Unavailable Unavailable Donnlel Izaguirre MD Unavailable Unavailable Donnell Izaguirre MD [...] Unavailable VIDA, Nick LYNNE MD Unavailable Unavailable VDIA, Nick LYNNE MD Unavailable Unavailable VIDA, Nick LYNNE MD Unavailable Unavailable IVDA, Nick LYNNE MD Unavailable Unavailable VIDA, Nick [...] Unavailable VIDA, Nick LYNNE MD Unavailable Unavailable IVDA, Nick LYNNE MD Unavailable Unavailable VIDA, Nick [...] VIDA, Nick LYNNE MD Unavailable Unavailable VIDA, Nikc LYNNE MD Unavailable Unavailable VIDA, Nick LYNNE [...] is protected by Article 27-F of the [facility] Public Health law. If you continue you may have access to information: Regarding HIV / AIDS; Provided by facilities licensed or operated by the [facility] Office of Mental Health; or Provided by the [facility] Office for People With Developmental Disabilities. If such information is present, then the following [facility] mandated warning applies: This information has [...] law may result in a fine or halfway sentence or both. A general authorization for the release of medical or other information is NOT sufficient authorization for further disc losure. Family History Family Member Name Family Member Gender Family Member Status Date o f Status Description Data Source(s) Unknown Male Problem MEDENT ([facility] Unknown Male Problem MEDENT ([facility]) Encounters Encounter Providers Location Date Indications Data Source(s ) [place] [address] [facility] [address] 09/30/2021 12:00:00 AM EST eCW1 ([facility]) Outpatient Attender: GUERA MCPHERSON MD BF-BF 09/24/2021 07:22:16 AM EST [facility] Unknown [address] [facility] [facility] [address] 04/02/2021 12:00:00 AM EDT eCW1 ([facility]) Attender: NELLIE PINTO ([place]) MDReferrer: Octavio MCPHERSON [...] Visit, Est Pt., Level 4 PC [address] [place] [address] 03/19/2021 12:00:00 AM EDT eCW1 ([facility]) OFFICE OUTPATIENT VISIT 15 MINUTES Attender: Donnell hauser MD Physical Therapy 02/03/2021 09:00:00 AM EDT MEDENT ([facility]) Attender: NELLIE ENG) MDReferrer: Octavio MCPHERSON [...] [facility] [place] Unknown [address] [facility] [facility], [facility] [address] 10/16/2020 12:00:00 AM EST eCW1 ([facility]) Office Visit, Est Pt., Level 4 PC [address] [place] [address] 09/18/2020 12:00:00 AM EST eCW1 ([facility]) Outpatient Attender: GUERA MCPHERSON MD BF-BF 09/17/2020 12:00:00 AM EST [facility] Immunizations Vaccine Date Status Description Data Source(s) influenza, recombinant, quadrIvalent,injectable, prese rvative free 09/18/2020 03:33:00 PM EST completed eCW1 ([facility]) influenza, recombinant, quadrIvalent,injectable, prese rvative free 09/18/2020 03:33:00 PM EST completed eCW1 ([facility]) influenza, recombinant, quadrIvalent,injectable, prese rvative free 09/18/2020 03:33:00 PM EST completed eCW1 ([facility]) influenza, recombinant, quadrIvalent,injectable, prese rvative free 09/18/2020 03:33:00 PM EST completed eCW1 ([facility]) influenza, recombinant, quadrIvalent,injectable, prese rvative free 09/18/2020 03:33:00 PM EST completed eCW1 ([facility]) Medications Medication Brand Name Start Date Product Form Dose Route Admi nistrative Instructions Pharmacy Instructions Status Indications Reaction Description Data Source(s) [place]-3 Fatty Acids (OMEGA-3 FISH OIL PO) drug or medication Oral aborted Take by mouth daily [facility] Insurance Providers Payer name Policy type / Coverage type Policy ID Covered democrat ID Covered democrat's relationship to rasheed Policy Rasheed Plan Information O BLUE [id number] SP [id number] MEDICARE [id number] SP [id number] [place] Medigap Part B [id number] Self 1 [id number] MEDICARE 4 [id number] 1 [id number] A Medicare Dme Supplies Medigap Part B [id number] Self 1 [id number] BS [place] Medigap Part B [id number] Self Y [id number] [place] (pr) Medigap Part B [id number] Self M [id number] [place] (pr) Medigap Part B [id number] Self A [id number] [facility] [id number] 0 [id number] Blue Shield MCR Advantage Medigap Part B [id number] Self Z [id number] [employer] MEDICARE BLUE PPO G [id number] Self [id number] MEDICARE 11 [id number] 1 [id number] Blue Shield MCR Advantage Commercial [id number] Self V [id number] [facility] MEDICARE [id number] 0 [id number] EXCELLUS BCBS MEDICARE [id number] Valeri [id number] EXCELLUS BCBS MEDICARE Medicare [id number] [facility] MEDICARE [id number] 0 [id number] MEDICARE CINDA O [id number] S [id number] BCBS MCARE BLUE PPO O [id number] S [id number] BCBS MCARE BLUE PPO O [id number] S [id number] [employer] [place] [id number] SP [id number] MEDICARE BLUE PPO 306 [id number] SP [id number] MEDICARE BLUE PPO P [id number] S [id number] MEDICARE BLUE PPO 306 [id number] SP [id number] [facility] ANSI-Medicare Part B [id number] ANSI-Medicare Part B [id number] ANSI-Medicare Part B [id number] ANSI-Medicare Part B [id number] BS [place] Commercial [id number] Self V [id number] [facility] Medicare [facility] ANSI-Medicare Part B [id number] ANSI-Medicare Part B [id number] ANSI-Medicare Part B [id number] ANSI-Medicare Part B [id number] [facility] B [id number] S [id number] SELF PAY UNAVAILABLE UNAVAILA BLE SELF PAY 2 UNAVAILABLE 1 UNAVAILA BLE [employer] [place] 2 [id number] 1 M [id number] Problems, Conditions, and Diagnoses Code Display Name Description Problem Type Effective Dates Data Source(s) E78.00 25000529 Hypercholesteremia Problem 09/18/2020 12:00: 00 AM EST eCW1 ([facility]) I25.10 Coronary artery disease invo lving [place] coronary artery of [place] heart without angina pectoris Coronary artery disease involving [place] coronary artery of [place] heart without angina pectoris [id number] 09/17/2020 12:00:00 AM EST [facility] Surgeries/Procedures Procedure Description Date Indications Data Source(s) ARTHROCENTESIS ASPIR&/INJECTION MAJOR JT/BURSA 12:00:00 AM EDT MEDENT ([facility] ARTHROCENTESIS ASPIR&/INJECTION MAJOR JT/BURSA 12:00:00 AM EST MEDENT ([facility] ) THERAPEUTIC PX 1/> AREAS EACH 15 MIN EXERCISES 12:00:00 AM EST MEDENT ([facility] ) THERAPEUTIC PX 1/> AREAS EACH 15 MIN EXERCISES 12:00:00 AM EST MEDENT ([facility] ) THERAPEUTIC PX 1/> AREAS EACH 15 MIN EXERCISES 12:00:00 AM EDT MEDENT ([facility] ) THERAPEUTIC PX 1/> AREAS EACH 15 MIN EXERCISES 12:00:00 AM EDT MEDENT ([facility] ) THERAPEUTIC PX 1/> AREAS EACH 15 MIN EXERCISES 12:00:00 AM EDT MEDENT ([facility] ) THERAPEUTIC PX 1/> AREAS EACH 15 MIN EXERCISES 12:00:00 AM EDT MEDENT ([facility] ) THERAPEUTIC PX 1/> AREAS EACH 15 MIN EXERCISES 12:00:00 AM EDT MEDENT ([facility]) THERAPEUTIC PX 1/> AREAS EACH 15 MIN EXERCISES 12:00:00 AM EDT MEDENT ([facility]) THERAPEUTIC PX 1/> AREAS EACH 15 MIN EXERCISES 12:00:00 AM EDT MEDENT ([facility] ) Physical Therapy Eval - Low Complexity 08/12/2020 12:0 0:00 AM EDT MEDENT ([facility] ) Results ID Date Data Source [id number] 09/30/2021 12:00:00 AM EST ALFREDO Name Value Range Interpretation Code Description Data Ruth rce(s) Supporting Document(s) SARS-CoV2 Rapid Antigen Positive [facility] This lab was ordered by [facility] and reported by [facility]. ID Date Data Source [id number] 09/24/2021 02:13:31 PM EST [facility]FORMATIONPatient MRN Name Date of Age Gend*PT [id number] Santosh Acuna 1935 86 years M ---PT Location Admission Date/Time Visit ID Attending Provider --- --- --- --- EPI ID CSN Admitting P beronica [id number] ---Cardiology History and PhysicalName: Santosh Acuna Gender: [...] the assistance ofelectroniccommunication technology: Telephone Only Codes 37224: 21- 30 minutes of medicaldiscussion: Telephone OnlyCurrent [...] Social Gatherings with Friends and Family: Attends [employer] Services: Active Member of Clubs or Organizations: [...] parts of this document, were dictated using [employer]. A reasonable attempt at proofreading has been made to minimize errors.Please call with any questions or corrections. Name Value Range Interpretation Code Description Data Ruth rce(s) Supporting Document(s) ID Date Data Source [id number] 01/30/2021 09:15:00 AM EDT [facility] Name Value Range Interpretation Code Description Data Ruth rce(s) Supporting Document(s) EGD-Colonoscopy [facility] EOWGCl3fItYVDnFvHZTjMkxIPMkbXCwmZUTsR8A6AMstLt1RKIxfibNqNJQxQd0+INRoQN5esb9dLUDy gMy [file] florist designer+mEn3NgYljV+MIjkYvXaLn9+onOWbnJ7ekvgFMjUlf4j2vsnTFN2wJhB/MI7k+/3qVCAJo/Cu2Gi5v [file] EL4KBYpX53OxxXjCyzOqaf6vfGSy9xtSwzF+AyWihBXGiSpmzULB0eldnzEnTlZSA8qkBwU0HZ+VALDES+ qzrGV9Ob3jhgTUCHo5GwSd8dlK94cgOMQnwcsN2GCH HWq2dzciIB64oeIYQQ/xXql2EWajs1kGC1cJE/rqB9qbdt0/9S2dW0NHjoSBpHbrheGU8HIFn/8+LpVB tdDoYk9YdhMLkdRnEVkZdj6A7lu10sDpDPi1VKlxnJGvPWhF/UXzIsjPHTQavfeMqPAe2bxxcRhuJ3uV KYjuD9lyWevBkdejo0xw4ydvRg3XoQJW5qGc+fZb76 rjGOETE1uK5izmcKbrVGkQn7eg71y9vlVg2zQrpNJ+PBa5BvRUkWZXZyshHBY/sf2go88UwQLV7Iuyxr rnvlFtJVvaJiw8xEzWxinIgHGQkxNXj5iAix+vsiO9vG9JWofaxh5SuizDZ2J0QvMe5tJgaSellh+ks+ ZFeC+GpoLlfCwPW6SZJKqfoV9wwfezkOoHivGNrFfJ 2U5xSFAvgrg/GHZ+2IJZ+9ZxsBjzU7m5V8WKxibz9qz6kkjlwAu8WYabPXckK+mzl2NGjdaJxogIZZTa ljtpV8ROyKOKFEsPJ3NsC/Acu6+t6l926zMy3dBIZol8QNoyNUuCVeafqlwfWYoj7KAA+ugJXJSUd0QX yWSBiof8YpqnYa6sR12jlEwQRvpkz7J/zUk6JotUBn DOO3xOPIBzmLLyQr/Wi3fXl2zwRk/QxGtTailT/uZpfsenyWsvlkTgExhAW+iu6t1AfxAZUFoWVoQ7Bf eEbv8MjCRbqqwcAzJhrVjdtuCococ+3yqwt6gIbKOgNN7SAICmxCID2vS0k9EpW2WJQG6t428ffA+insurance sales assistant [file] cap blocker+Cm/+OjWXf3bzsOvLFrWRkZItPD+UJYTIh/yo6l [file] GbNuAysf3jR4ff0EnQEUOKgkraApk1DXDVdKX3DZumTfGrXlPMZ5etXeFToDb76s6FSOyecQ8U+JOSÉ+nY [file] developer+R3m9JYk [file] jpTl0aqKV+svp business development/Ywpd3W/3KeuQtUnRngrVcRGdabtIT [file] fb4tvhkHhmXdgmnRI33M6eXkx+3WnSIoOiaXJqT2u9JGmmoC+9Dr5d3migyjVyp8SUu1jMwxakSW+[place] [file] field hauler/KEtVwCLLFGDRuNwdCb2Ejhs/SPTwk4nRneTYW1Db4pkoA7woJ/EXbf5BhJS0GkFTKSLuIgxoz8np FoR6COChwVbPJg6I/6IFPOWIdCJJzrkEQGk6N0gvFp0J6zJxNEnofs2K7la9N7FtOHBFt5gyJO5pce8l 6DdVibJO1VTckkaRZQCpH7DLYIq3RLiBvhWP+dwWkW /xUWMValAdJBW21YlYPdvYSiQ002t1yyskTaq6oR3zDXHiqy/nTdUIsJEucJ5Df5KKZtNeTmyO5PKSYj oKz3BtO1+PEaM+GP5TO8mfvp7uY8Pw/mlzbl762Lm5FKiVwbphlcQVsSuKJWMRFr7MBnU2CLmghiS6I7 zvU8kDvH7epxgIkY8O/W9B/b3kce4XBxuwZrCUQvoh HtctJ2HJvrRARa2rkf2fv5oF1ItUOz29xo1hx8UA/8PumpNs9u1xYTsW7G1guJSbNIHP1jEbcp+i9C6W OqWYJkjn6c2fBf8CiNfdbEQD1TYK5zGo7f8nsWDlshq+RQ6MgEciCjiwYVuFY9SORqCysMT8vuWmzvR0 9jfGyozC5I2ImXY4p4zzXU0KJFNvnRgwNaiM06SRqK mfZ9TztBC0gYIvLPqTR6mPUw7YZsrT5JoSiy+tMUI8WLu9hzJ1Gy9qtIlJG5cUvBGKk1HhxFUEQyPmx0 ufL3dSSZTLC3HZx+ghTFm2d7HwN/u90MaM8Aai7H+R6wrnCZbMlcxmkiHdzJ5zEU6Au/fe3X6coy1U8i iOSMrxmhI+jeauc4+S0WxmkKmFP8XVZwg70CkK/bernarda [file] um1wcWbgM/Rocío+WBoOM7LYMQVpY3CBxtUpGad0eevi [file] back line cook/9pfUHtM/eN9xf/FI9opV6pAW73XOStfRu0cPEo1duhMABK0uu8s8wABb695mMLqxOZNt7yk4XE7T2 [file] HxUUM7WvfP/FwwxKQq20GoH/q+BQ5NAVAvmMcT8+wool cleaner [file] zoMe5aAKUGO+7yobSGGBnwIgJBmrIJ9N3QPpH3KQfhoI3rgGxXyf32JOEKyxynESZ9k93adeRYZQ0/back line cook +lGF/icnSieJZtP9S95UP6jFWdwQcN3+4CRM8mLXYw PBJJY2jQtFWI69RKod9kC7khMnUDDydjKG8qDhF/kTdkQd/nZmE1zKQiGqHIkEC05SkjdcXgbJVh5GiC tuuZ8r6dzbb776DwS7peuttUhLAGlW0SiOJSaZ/D7wp2HmMdAHn8OCwH08r5WWR/DjxqYwRlozjnedPC VHbjtaZi/xKLKdV5i9SBWW2RmMpaQe3ftmEEJnetFu lzAqYS2mihNWtQ2dkteteSZOEe3ARkDa312IKqLRZ3J+CkloQYuhNmZt4zYqPAb6SLFjNbgvVoWHgvQC rf/DapK2+S5MI1+O8INgbXdmvRtYtreeHvTqWNXhd78RhT4xE59Q9Jk1++cYsbNP9siDTAo9MK0sQLg0 OOIp1oqf4gr6BfjMuMvUzlcmfje4ZSqHLXOFJm8bWh 1XS4Ueqy75oPopfEYnq7qJgkRpnR9L+NCZd0ON4PxsfdAIxJkqGnWtY+7TwZZZFpoDnQGQgGiKV7ZHpg /MOrZ+QGuHj+fZyZO0/IYp8DjOCd3wsGrPdjBWHPt65i4mhrFe7pWKNR6xhed0+6zACCrmjOoVJw/9ve op2tLE40HstH5fbh/j5Ctt3FxP76GAEZ32Wm9FtTP2 ycxjJ+0XfF8ccY8s0MrEktIls0Xgsjkx3aK2h37GkHK518QZj9vUiGCzi0ibU/oGLsaVbZeBZqPTE6XB d+Pe3cKxUoO5bsGtpxkeE3YBxSRrpr0M+jXGzkybXzOir5aQC9jT35Qnwsyfa7erxglosJTX9YAdIxwg Ytr88mz18lXtNhVlL3JL7hSdRo0hm6eR38ZI4CoX9P C9pLPL7dAaouPR2MRlYnzQRxXdkgBz09x9pyXtQZUc80Y7gPQGiDs/freedom/dxVQvqsWjnH8uXiRkXEr19N [file] x9qUszSM5Q10R6tdDJVOX90vJ3E5FOe645M0l5iG9t btfH27asQ/uYafQs9CjPcu0VdcBE4NGjhvMQmrayhh1urHX+Wet End Supervisor/vbcep/mCMHptM1zg+qwP/9YPoxfE [file] rA8aFaayE58FkAZnOrgK5f2b+Maria Del Rosario/4gg+k0UR185yg [file] mhb4BwHncnPvnzDZvyWec0mi7X3tz92mzmTNXFsegaoFHpv/iHkwjE0U+UqgR1gerdtfKOj/BLM5y+Jewel Supervisor [file] jiLoSHdhBelmont Behavioral HospitalJeZ+EjDz33CkiXAYb14CZl1dM1vAws4O+82yFQ6tRhQNC84NbjR9DFkS4d/ozHjLwayK bz2AUIHt0UKg+gW7v90yjep5pWPa1VKdy1POTayQbJ zWKESo4oT14jptEmihuy+diA8FNV1OeekghbztXVKv4ioz9BTKP34bWiFUAOohiUrodtjm9+yLZg9thF fLiOaUk5yEZPfUwE7il1hZrV7mbkhDpXBH6q+d9jqXgpWvB8wauIwmrQgXA539hShOhs5WpbrrODbQA+ omIYK0UlU/UNIowR7xGiSd0a0CHXvt6k6R0StLQuG8 vRwUe7+c3e2OPCQE70QE4CrHS5/Ac6Ce0h0qFN5iKUmNZaLoZnPVqOZ1YOFY3et7v7xQi9VlhW96FCRP 4CYbTxBqyFvSwKXv1B1dN5A5QZnD3tXpGRHfeEgAb9Zu0mTu8GVdZruxJ/w4Jd4J1/U3iiILve19loxQ zq+wZjL9yhvF5N+wgcmo7pFJUom1vlh0Zf4dNCGubQ TFea8NqQUxtmbK+QLR1AymDTRdL757sTGcEzhus+zRna+OBiaTbowiaPFAPn9Vme4K/ElOO1frb4vjWF gxP/8pcYPhn6FkgrITa4iGnWrx78DRxEWAFfLrUTSRVmRNW1T+poABDEojef08FPuOlSE2tWZr7+J7AI MJrsxBe+hdIYobYcTq4XLMcwc3wI1QfKiFLjR3lUrA wmJqrmCjJGcZ63NgkN+/YS4wYf94aqfKRZxELs4h69aRa84CpA3WTKc8WSyeJKn7DmS4w8nQVAZThXOa vwx9eNdI45ECsXcmiVJsPepIJE5eULevouwWCZ1+fC5Ws+Y2PnWln+rkxnK0A3nhGesCm22HDRX9miqr ZEGbJV9EzdiamrlQ6vip2vFtxJd+Ge2Sdsp7LmdluX a6R0gtI46raY5jfOkvEcPEkPeOpV0Ufbe4p1RNX4Z3t/WM3MrYVIHeNQLO9xPsltTM0SFp3hk71U+Lenka [file] k7X4Satw+z0FYPaOGpai19KOLSoK+Ss8B/4Pi59lWkOw+i0tMR26u98C0D4v4KXPh63J4E9XZDI+w+Jose chKQUZp1DpBF6u4Ickjh/QIi36GStF2H42JZXHxz1NzsKs0YsmTm7/Lm61TjCGu9+iQaQozUIvAQUFpY oN4aHGG8QhwMelLou55pX9KKRxI5MT8Y2h0J2dMYUy [place] [address]+d++bNm/vp7ni0526uU/Zf54/QaN401driV+fgyyyFZiFALyLtPQ4mHeYUjyx4qrIct8aU [file] NuAPikkJ5oGwvCYEPlQ5W9CU/+3FlyIqlAnqCZUd159g67K+3+nmvaV9bdT5vRE4SCPeprr+Radha+cCk2 8aNPRpsj8RdpyZOcH0XjHGZ+i8r/zhjv6zbbB+PqSdunDszYCWuHu8Kh5CdTLLP/nivvIkIklWN5u/José [file] drilling engineer+pRGciyXJB9dl5O6YpliM5udw++pZJBVPQ5iSl//Iky/w8zuCL5Eo4Zr+8tGd0zafPAxggjDmIThr [file] +5v+73Opd4Y6yu4V9qtraShsbmDAdQkTxYCJbK [file] svp business development+ryrJ78ODXPUZ0R2TWUW2zbpE8JIalj4AqdQ4OWz [file] WTD7PHo+fQb5dttI4KKseJVcRQducB5NH+1UEdt30r+AxEEnuLfSe+mercerizing range controller+yxCEov7VaEHB8qnrDYTMV9 [file] AF/XWoPQHyTgAQF0skXakV3UTV1zg1OoMO5Uq4CobqP6dvPuISi1BQf6MYuTWfUnMV2J ID Date Data Source [id number] 12/17/2020 11:15:00 AM EST [facility] Name Value Range Interpretation Code Description Data Ruth rce(s) Supporting Document(s) Follow Up [facility] XJZRDo6wNxEVRgVsGZNtBnaKIEglHLerNTVbT3T8CHtbIo9CJQcactRkTKQqMw4+OLCkIP5eni0sKPJa gMy [file] Field Producer+y9P3g3jGbVNBhHjERdmpq/reusQES67xI2Lj5 [file] Tjrk64Nph58CGH3IuL2g20vnxIe36H5ap4jzU999mB 3GyY0lJBFuzuJdFL6jIQOYKSi+QsKYnWsoRz1+dk4UlS68LIQsujoT2vabXlYA85Sp6aHRAkmvugZcV6 S7CKlOeCsDQ4iX5Zx5tJXc1ct6Kke4m9J9PHqxQ4LD9c3cbuCv8MiGdr9VYgYrX/Z1R9OqWnSFK0b4M3 0nYBvu5J9vXfZEDUfOpAsRpVurFVy2USOBQl1a6JOu vBJojLszH76CYptsSXYfEQwNstiIH86azPVSeIdYkwxECJdX2VCrB349SBD3k8jo3Bwsn+ZUPc4RY0TC oVNlnnV0Ja59nj2HJp48UmitnPibuxdB5d4nUAHOjs9CneI54MTeqAGWzT5WBU7xo0LDLK2BnmeO9F7p 8Gh4UCaBvuMcdEb81l8fzh0xbAvY3fuNN7Gj+7sNt/ Lckcnj7wJrZfQwbjeW0t9ijx3HRrT87ONsFTUpwgpokU8HScodqEUl0/h5ICwTzP+RUal7bQwcaZ/Commercial Crabber [file] wool cleaner+g4AyOCnba39LGVHy9DhsJyESK6q7/EeqZV7JPoCD7vJ6uLFm9IrZbDU1JR+9d/XQ28dZdAWkoQUE7 [file] 2Pg7D1M5EH4Cg4qiLt4oLdxmBYdsEIOY9+s6/MOBILE HOME PARK MANAGER+2jgjeiMrZuoFgBsOaF1Q9D8UDhRfc8bnAA88Hm0H [file] Moh+4lm6rEsEy2EALCYf+g5vM6g6jzPYJJ++F4MEvHayKuyQ1jbG5MX+PRncNL/FORESTRY BIOLOGY SPECIALIST/Glc11DkyuZUQl [file] keTO6K/QkIz47LQAb1gSMCR03tS63COwtKtHXqcibS+Qms0gmiwCujc+qRjqmgTXS1AJzWaTjKcgS+Animation Camera Operator [file] pQltrwAOalcHGfJP1tIL2x7Cu7T5f7Le+uhhP/hhu5ed/KqrLF/fire prevention captain+uUrivPcvTZzWgNPgAaRy22AW7 [file] [place]+PCOQQsMIR8VS8JYDCIIqofRIea7EHNKAJIG/qFOa6HZ/gdi5yxUWlMMkR/AfZxhIygUkfNcok075 [file] uCrUe3H6ZdZ7Qq27AgqVVby5ufKPpOLm+fIRCzR+MOBILE HOME PARK MANAGER+ZZAwR0Fq3ZIXk/2NJK8279CZYUlZOlsYjZeY2 [file] ZcvtKHJl+florist designer/dWsoTegx1CkxZbEba9sMDr0q0xExSigh9gUvRHymUQv4CHycsTi2gu0idPP3BirPd7FW [file] eDGCulkIXHDdisAXzQd3XHiW9nMlS5v9sk8Mc6+slice plug cutter operator helper [file] qjTgYXPjIr5Ob6+76R1SjjVu7gf4h4SgsLNGB7gNOVykrJxZ1AyBp+m8naLZ6+JlxF5zeYw1ZXhA+[place] [file] bag packer [file] Km+rut4A01+wvSQCtR6eqNTVtIXuEhyYaWhhX+mhZqCOnM/LWBt3V2bFxlSn3hCoSiHABJhDYjTxTZL hYqsNGTfRotO86jrQXhIVoeD1Wyc1PlOTaTVnl8o9p wWmcMctrrrPIwQZM65sJ6sKQF13C++WNfukk0sxdChvSHxphlO8hHcc0QBkJkf/P+quG0COGx9Z8Bw/1 4Kc2e2jVEAGEJ7Li1y6Lo9xo7BwDIiBGsW3rLoxtCpbu+ZkcwAadH60jAFFMRP1K9VCNAkwG6KQThWTB d4PWsTP30UTEFLZckwKPx1MnODVLn+HNrl1PEA0+/V u/sl60xz5bpz1juPpX/8XrU0jryp1+i4Pf3acAU6jX8Y2jjWS1cgmTdBzo5JQ9ucDBIV+eltix848mic 3UThV1HscWt+HiLOs0WEjmrNX9AK0KKhY/5j+Pz4krTGzeKQEl54/43JB/emx6cTMJzLhdJcjyWyYM1/ JXEQDD42CF4dA/Gt7Dd3Onx4Dc2RUyOOMEf5edh5b7 DXOoal0kzFYg7pLC73JPQ/IO2xBil9Xv7Np6np3oEfuXAGCfN/lGC2966F/CXxGRolKggr5Hqf68K0Uw oavnFFezm8XJ86ezz5iZnAxXptK9BEXdYXioxmNgr9s2fHCV9BXIMoQ25B3+zoology technical officer/B0ye9ZW8qXdCkC/M [file] 10CiDPZELrasDBVyJlU6j3bh5YLQq01dsft33ch/José [file] Animation Camera Operator/0PgdwBCcK0bZ9HsA/6gxzJ8DQ1dA6mL/LVQ78m/ [file] OzoJKaQaQ9snRGgj+nDYr38LZdg6/Ana Paula+9olu7POJJyvbUl+FBjtDHjyHMGxiJYTEs+4lI7A9HxkcFUR [file] sI7BD8t/S+train control technician/y5OxJBBdSoda2xVhKl/jwe+snf2P8SiDBBUI6iYZaG1+wlS5SS23yExzHjmEnm9PbO [file] UXBtBK3HPwkS9270A+/SkTgo++W/sCT/ohm6Xmb7GjjnqA+NKKpp/bi76wjY9Aa/linseed oil boiler/qBeBV3dtP3Wz [file] j8VsnwL3juOqXZnbOUrsMEZ7NMfdRFBJPe== ID Date Data Source [id number] 09/17/2020 10:32:26 AM EST [facility] INFORMATIONPatient MRN Name Date of Age Gend*PT [id number] Santosh Acuna 1935 85 years M ---PT Location Admission Date/Time Visit ID Attending Provider --- --- --- --- EPI ID CSN Admitting P [place] [id number] ---Cardiology History and PhysicalName: Santosh Acuna Gender: maleDate of : 1935 Age: 85 yearsPrimary Care Provider / Referring Physician: [facility] Telemedicine VisitPatient was identified by name and date of .Verbal consent was obtained from the patient for this telemedicine visit.Patient is aware of the risks, limitations, and benefits of a telemedicinevisit.This telemedicine assessment was conducted remotely with the assistance ofelectronYumberommunication technology: Telephone Only Codes 03542: 21- 30 minutes of medicaldiscussion: Telephone OnlyCurrent [...] file Gets together: Not on file Attends spiritism service: Not on file Active member of club or organization: Not on file Attends meetings of clubs or organizations: Not on file [facility] ip status: Not on file Intimate partner [...] by mouth 1/2 POM/WED/WED, Disp: , Rfl: [place]-3 Fatty Acids (OMEGA-3 FISH OIL PO), Take [...] parts of this document, were dictated using [employer]. A reasonable attempt at proofreading has been made to minimize errors.Please call with any questions or corrections. Name Value Range Interpretation Code Description Data Ruth rce(s) Supporting Document(s) Procedure Social History Code Duration Value Status Description Data Source(s ) Alcohol intake 09/24/2021 12:00:00 AM EST Current drinker of al cohol (finding) completed Current drinker of alcohol (finding) [facility] Vital Signs ID Date Data Source UNK Name Value Range Interpretation Code Description Data Source(s) Body weight 88.905 kg 88.905 kg [facility] Body weight 195.00 [lb_av] 195.00 [lb_av] MEDEN T ([facility] ) Body mass index (BMI) [Ratio] 26.4 kg/m2 26.4 k g/m2 MEDENT ([facility]) Body height 72 [in_i] 72 [in_i] MEDENT ([facility]) 6'0" Body weight 195.6 [lb_av] 195.6 [lb_av] eCW1 ([facility]) Body height 71 [in_i] 71 [in_i] eCW1 ([facility]) Body mass index (BMI) [Ratio] 27.28 kg/m2 27.28 kg/m2 eCW1 ([facility]) Heart rate 83 /min 83 /min eCW1 ([facility]) Respiratory rate 18 /min 18 /min [facility] Body temperature 97.4 [degF] 97.4 [degF] eCW1 ( [facility]) Systolic blood pressure 120 mm[Hg] 120 mm[Hg] e CW1 ([facility]) Diastolic blood pressure 68 mm[Hg] 68 mm[Hg] eCW1 ([facility]) Body temperature 96.4 [degF] 96.4 [degF] MEDENT ([facility]) Body weight 195.6 [lb_av] 195.6 [lb_av] eCW1 ([facility]) Body height 71 [in_i] 71 [in_i] eCW1 ([facility]) Body mass index (BMI) [Ratio] 27.28 kg/m2 27.28 kg/m2 eCW1 ([facility]) Heart rate 88 /min 88 /min eCW1 ([facility]) Respiratory rate 18 /min 18 /min eCW[facility] Body temperature 97.4 [degF] 97.4 [degF] eCW1 ( [facility] [facility]) Systolic blood pressure 110 mm[Hg] 110 mm[Hg] e CW1 ([facility]) Diastolic blood pressure 70 mm[Hg] 70 mm[Hg] eCW1 ([facility]) Patient Treatment Plan of Care Planned Activity Planned Date Details Description Data Source (s) [place]-3 Fatty Acids (OMEGA-3 FISH OIL PO) [facility]
[2021-10-08 07:47] LABS: VENOUS BASE EXCESS 2.9 (-2.0-2.0); VENOUS HCO3 26.1 MEQ/L (23.0-27.0); VENOUS O2 SATURATION 95.1 % (60.0-80.0); VENOUS PARTIAL PRESSURE CO2 35.4 mmHg (38.0-50.0); VENOUS PARTIAL PRESSURE O2 73.8 mmHg (30.0-50.0); VENOUS PH 7.485 UNITS (7.330-7.430); VENOUS TOTAL CO2 27.2 MEQ/L (24.0-28.0)
[2021-10-08] MEDS ORDERED: ACETAMINOPHEN 325 MG TAB PO ONE (07:50)
[2021-10-08 07:54] LABS: BASO % 0.1 % (0.0-1.0); EOS % 0.1 % (0.0-3.0); HEMATOCRIT 37.6 % (42.0-52.0); HEMOGLOBIN 12.7 g/dl (13.5-17.5); LYMPH # 0.1 10^3/uL (1.5-5.0); LYMPH % 0.8 % (24.0-44.0); MEAN CORPUSCULAR HEMOGLOBIN 30.7 pg (27.0-33.0); MEAN CORPUSCULAR HGB CONC 33.8 g/dl (32.0-36.5); MEAN CORPUSCULAR VOLUME 90.8 fl (80.0-96.0); MONO # 0.5 10^3/uL (0.0-0.8); NEUTROPHILS # 9.1 10^3/uL (1.5-8.5); NEUTROPHILS % 93.2 % (36.0-66.0); PLATELET COUNT, AUTOMATED 317 10^3/uL (150-450); RED BLOOD COUNT 4.14 10^6/uL (4.30-6.10); WHITE BLOOD COUNT 9.7 10^3/uL (4.0-10.0)
[2021-10-08 08:04] LABS: INR 0.99; PROTHROMBIN TIME 13.5 SECONDS (12.7-14.5)
[2021-10-08 08:05] LABS: PARTIAL THROMBOPLASTIN TIME 32.1 SECONDS (25.9-37.0)
[2021-10-08 08:24] LABS: ALBUMIN 2.6 GM/DL (3.2-5.2); ALT/SGPT 113 U/L (12-78); BLOOD UREA NITROGEN 19 MG/DL (7-18); CALCIUM LEVEL 8.7 MG/DL (8.8-10.2); CARBON DIOXIDE LEVEL 27 MEQ/L (21-32); CHLORIDE LEVEL 98 MEQ/L (98-107); CREATININE FOR GFR 0.95 MG/DL (0.70-1.30); FERRITIN 490 NG/ML (26-388); GLOMERULAR FILTRATION RATE > 60.0 (>35); GLUCOSE, FASTING 139 MG/DL (70-100); LDH LACTATE DEHYDROGENASE 282 U/L (87-241); POTASSIUM SERUM 4.3 MEQ/L (3.5-5.1); SODIUM LEVEL 133 MEQ/L (136-145); TOTAL PROTEIN 5.6 GM/DL (6.4-8.2)
[2021-10-08 08:25] LABS: MB/CK RELATIVE INDEX 2.38 (< OR =4)
--- NOTE | 2021-10-08 08:30 | REP ---
INDICATION: Coronavirus workup. COMPARISON: 10/10/2013 TECHNIQUE: Portable FINDINGS: The technique utilized in obtaining the radiograph has magnified the cardiac silhouette and accentuated the interstitial markings. Bilateral patchy interstitial and airspace opacities have developed since the last exam. There is a patchy opacity in the right upper lobe is well. The pleural angles are sharp. The cardiomediastinal silhouette is unchanged. The osseous structures are unchanged. IMPRESSION: Pneumonia <Electronically signed by Amado Nolan > 10/08/21 0826
[2021-10-08] MEDS: COMBIVENT RESPIMAT 100-20MCG INHALER 4GM INH PRN ×3 (08:38→09:24)
[2021-10-08] MEDS ORDERED: cefTRIAXone SOD 2 GM in D5W MINI-BAG PLUS 50 ML IV ONE (08:45)
[2021-10-08] MEDS ORDERED: AZITHROMYCIN INJ 500 MG, VIAL MATE ADAPTER 1 EACH in NS 250 ML IV ONE (08:45)
--- NOTE | 2021-10-08 09:06 | ECGEPIP ---
[facility] - ED Test Date: 2021-10-08 Pat Name: SANTOSH MATIAS Department: Room: - Gender: Male [employer]: LR : 1935 Requested By: Bibiana Blake Order Number: [id number] Reading MD: Rustam Barry Measurements Intervals [place] Rate: 86 P: 5 CT: 196 QRS: 88 QRSD: 126 T: 29 QT: 378 QTc: 452 Interpretive Statements Normal sinus rhythm BORDERLINE RIGHT AXIS DEVIATION Right bundle branch block SIMILAR TO 03/20/19 Electronically Signed on 10-08-2021 9:05:45 EST by Rustam Barry
[2021-10-08] MEDS ORDERED: ESOM20CA25 PO (09:51)
[2021-10-08] MEDS ORDERED: ALLO100T PO (09:51)
[2021-10-08] MEDS ORDERED: ECOT81TA5 PO (09:51)
[2021-10-08] MEDS ORDERED: VITA-158 PO (09:52)
[2021-10-08] MEDS ORDERED: RA T500C2 PO (09:52)
[2021-10-08] MEDS ORDERED: HOME MED LIST COMPLETE! XX SCH (09:55)
--- OUTSIDE RECORDS SUMMARY | 2021-10-08 09:59 | CCD ---
Author Author [facility] Organization [facility] Address Unknown Phone Unavailable Care Team Providers Care Hydraulic Strainer Operator Name Role Phone BLAIR (CAMILLE), Adry BALLARD MD Unavailable Unavailab le BLAIR (CAMILLE), Adry BALLARD MD Unavailable Unavailab le BLAIR (CAMILLE), Ardy BALLARD MD Unavailable Unavailab le BLAIR (CAMILLE), [...] SOLIS, Noble PENN MD Unavailable Unavailable SLOIS, P ISAMAR SOLIS Unavailable Unavailable SOLIS, P [...] Donnell Walsh MD Unavailable Unavailable Vaneenenaam, Donnell aWlsh MD Unavailable Unavailable Vaneenenaam, Donnell Walsh MD Unavailable Unavailable Vaneenenaam, Donnell Walsh MD Unavailable Unavailable Vaneenlucíaam, Donnell Walsh MD Unavailable Unavailable Vaneenenaam, Donnell Walsh MD Unavailable Unavailable Vaneenenaam, Donnell Walsh MD Unavailable Unavailable Vaneenenaam, Donnell Walhs MD Unavailable Unavailable Vaneenlucíaam, Donnell Walsh MD [...] is protected by Article 27-F of the [facility] Public Health law. If you continue you may have access to information: Regarding HIV / AIDS; Provided by facilities licensed or operated by the [facility] Office of Mental Health; or Provided by the [facility] Office for People With Developmental Disabilities. If such information is present, then the following [facility] mandated warning applies: This information [...] law may result in a fine or skilled nursing sentence or both. A general authorization for the release of medical or other information is NOT sufficient authorization for further disc losure. Family History Family Member Name Family Member Gender Family Member Status Date o f Status Description Data Source(s) Unknown Male Problem MEDENT ([facility] Unknown Male Problem MEDENT ([facility]) Encounters Encounter Providers Location Date Indications Data Source(s ) [place] [address] [facility] [address] 09/30/2021 12:00:00 AM EST eCW1 ([facility]) Outpatient Attender: GUERA MCPHERSON MD BF-BF 09/24/2021 07:22:[address] [facility] [place] [address] [facility] [address] 04/02/2021 12:00:00 AM EDT eCW1 ([facility]) Attender: NELLIE PINTO (MITCHELL) MDReferrer: Octavio MCPHERSON [...] [facility] Attender: NELLIE PITNO (GARCÍA CLAUDIA) MDAttender: Bibiana ClarkeReferrer: UGERA MCPHERSON MD 03/25/2021 08:21:05 PM EDT [facility] Attender: NELLIE PINTO (GARCÍA CLAUDIA) MDAttender: Bibiana ClarkeReferrer: GUERA MCPHERSON MD 03/25/2021 08:21:05 PM EDT [facility] Office Visit, Est Pt., Level 4 PC [address] [place] [address] 03/19/2021 12:00:00 AM EDT eCW1 ([facility]) OFFICE OUTPATIENT VISIT 15 MINUTES Attender: Donnell hauser MD Physical Therapy 02/03/2021 09:00:00 AM EDT MEDENT ([facility]) Attender: NELLIE ENG) MDReferrer: Octavio [...] [facility] [address] [facility], [facility] [address] 10/16/2020 12:00:00 AM EST eCW1 ([facility]) Office Visit, Est Pt., Level 4 PC [address] [place] [address] 09/18/2020 12:00:00 AM EST eCW1 ([facility]) Outpatient Attender: GUERA MCPHERSON MD BF-BF 09/17/2020 12:00:[address] [facility] Immunizations Vaccine Date Status Description Data Source(s) influenza, recombinant, quadrIvalent,injectable, prese rvative free 09/18/2020 03:33:00 PM EST completed eCW1 ([facility]) influenza, recombinant, quadrIvalent,injectable, prese rvative free 09/18/2020 03:33:00 PM EST completed eCW1 ([facility]) influenza, recombinant, quadrIvalent,injectable, prese rvative free 09/18/2020 03:33:00 PM EST completed eCW1 ([facility]) influenza, recombinant, quadrIvalent,injectable, prese rvative free 09/18/2020 03:33:00 PM EST completed eCW1 ([facility]) influenza, recombinant, quadrIvalent,injectable, prese rvative free 09/18/2020 03:33:00 PM EST completed eCW1 ([facility]) Medications Medication Brand Name Start Date Product Form Dose Route Admi nistrative Instructions Pharmacy Instructions Status Indications Reaction Description Data Source(s) Timber-3 Fatty Acids (OMEGA-3 FISH OIL PO) drug or medication Oral aborted Take by mouth daily [facility] Insurance Providers Payer name Policy type / Coverage type Policy ID Covered democrat ID Covered democrat's relationship to rasheed Policy Rasheed Plan Information O BLUE [id number] SP [id number] MEDICARE [id number] SP [id number] [place] Medicare [place] Medigap Part B [id number] Self 1 [id number] MEDICARE 4 [id number] 1 [id number] A Medicare Dme Supplies Medigap Part B [id number] Self 1 [id number] BS [place] Medigap Part B [id number] Self Y [id number] [place] (pr[place] Medigap Part B [id number] Self M [id number] [place]pr[place] Medigap Part B [id number] Self A [id number] [facility] [id number] 0 [id number] Blue Shield MCR Advantage Medigap Part B [id number] Self Z [id number] [place] MEDICARE BLUE PPO G [id number] Self [id number] MEDICARE 11 [id number] 1 [id number] Blue Shield MCR Advantage Commercial [id number] Self V [id number] [facility] MEDICARE [id number] [employer] BCBS MEDICARE [id number] Valeri [id number] EXCELLUS BCBS MEDICARE Medicare [id number] [facility] MEDICARE [id number] MEDICARE CINDA O [id number] S [id number] BCBS MCARE BLUE PPO O [id number] S [id number] BCBS MCARE BLUE PPO O [id number] S [id number] [employer] [place] [id number] SP [id number] MEDICARE BLUE PPO [id number] SP [id number] MEDICARE BLUE PPO P [id number] S [id number] MEDICARE BLUE PPO 306 [id number] SP [id number] [facility] ANSI-Medicare Part B [id number] ANSI-Medicare Part B [id number] ANSI-Medicare Part B [id number] ANSI-Medicare Part B [id number] BS [place] Commercial [id number] Self V [id number] [facility] Medicare [facility] ANSI-Medicare Part B [id number] ANSI-Medicare Part B [id number] ANSI-Medicare Part B [id number] ANSI-Medicare Part B [id number] [facility] B [id number] S [id number] SELF PAY UNAVAILABLE UNAVAILA BLE SELF PAY 2 UNAVAILABLE 1 UNAVAILA BLE [employer] [place] 2 [id number] 1 M [id number] Problems, Conditions, and Diagnoses Code Display Name Description Problem Type Effective Dates Data Source(s) E78.00 14802398 Hypercholesteremia Problem 09/18/2020 12:00: 00 AM EST eCW1 ([facility]) I25.10 Coronary artery disease invo lving [place] coronary artery of [place] heart without angina pectoris Coronary artery disease involving [place] coronary artery of [place] heart without angina pectoris [id number] 09/17/2020 12:00:[address] [facility] Surgeries/Procedures Procedure Description Date Indications Data Source(s) ARTHROCENTESIS ASPIR&/INJECTION MAJOR JT/BURSA 12:00:00 AM EDT MEDENT ([facility] ARTHROCENTESIS ASPIR&/INJECTION MAJOR JT/BURSA 12:00:00 AM EST MEDENT ([facility] ) THERAPEUTIC PX 1/> AREAS EACH 15 MIN EXERCISES 12:00:00 AM EST MEDENT ([facility] ) THERAPEUTIC PX 1/> AREAS EACH 15 MIN EXERCISES 12:00:00 AM EST MEDENT ([facility] ) THERAPEUTIC PX 1/> AREAS EACH 15 MIN EXERCISES 12:00:00 AM EDT MEDENT ([facility] ) THERAPEUTIC PX 1/> AREAS EACH 15 MIN EXERCISES 12:00:00 AM EDT MEDENT ([facility] ) THERAPEUTIC PX 1/> AREAS EACH 15 MIN EXERCISES 12:00:00 AM EDT MEDENT ([facility] ) THERAPEUTIC PX 1/> AREAS EACH 15 MIN EXERCISES 12:00:00 AM EDT MEDENT ([facility] ) THERAPEUTIC PX 1/> AREAS EACH 15 MIN EXERCISES 12:00:00 AM EDT MEDENT ([facility]) THERAPEUTIC PX 1/> AREAS EACH 15 MIN EXERCISES 12:00:00 AM EDT MEDENT ([facility]) THERAPEUTIC PX 1/> AREAS EACH 15 MIN EXERCISES 12:00:00 AM EDT MEDENT ([facility] ) Physical Therapy Eval - Low Complexity 08/12/2020 12:0 0:00 AM EDT MEDENT ([facility] ) Results ID Date Data Source [id number] 09/30/2021 12:00:00 AM EST ALFREDO Name Value Range Interpretation Code Description Data Ruth rce(s) Supporting Document(s) SARS-CoV2 Rapid Antigen Positive [facility] This lab was ordered by [facility] and reported by [facility]. ID Date Data Source [id number] 09/24/2021 02:13:31 PM EST [facility] INFORMATIONPatient MRN Name Date of Age Gend*PT [id number] Santosh Acuna 1935 86 years M ---PT Location Admission Date/Time Visit ID Attending Provider --- --- --- --- EPI ID CSN Admitting P beronica [id number] ---Cardiology History and PhysicalName: Santosh Acuna Gender: [...] the assistance ofelectroniccommunication technology: Telephone Only Codes 80673: 21- 30 minutes of medicaldiscussion: Telephone OnlyCurrent [...] Social Gatherings with Friends and Family: Attends [employer] Services: Active Member of Clubs or Organizations: [...] parts of this document, were dictated using [employer]. A reasonable attempt at proofreading has been made to minimize errors.Please call with any questions or corrections. Name Value Range Interpretation Code Description Data Ruth rce(s) Supporting Document(s) ID Date Data Source [id number] 01/30/2021 09:15:00 AM EDT [facility] Name Value Range Interpretation Code Description Data Ruth rce(s) Supporting Document(s) EGD-Colonoscopy [facility] RITSFt9hKhNAGdQoXKVmFwbVJXwlULxqYTSkM3U8UBalFs7ILDuyoxIyUIHtEg2+CTWaCX9zpn6aJHOz gMy [file] UT9YJZpM56XkxGaHjbPuxd5wgUHs3tmVxtF+GqZfqTZVeMsdiFSK9rvioxNwFaDEU4asZpD6UC+VALDES+ humBO7Nt0khhQQZWf1CySr9dpM64knDDHexvaK6VKB STd8wxlxYX18pxXYSZ/aMop8ARqqu8xIR6eEN/xoM1hwwa9/6R1qW7WNhmATmEolbfDJ6JNBv/8+LpVB rgGhYo3GakPOseHbHVhIxr8C8rz60gQrLWp0YCnthDCbYIaB/YKeWrsLOACslgrXwJAw8ihhzCinI9kZ CFmoP5toPvfZzedue6zl8xckGv7AxSEK0mKo+fZb76 fnBJCEX6kK5smwhXrtMBoRc2qd59v7grNz8rBtxHO+GFh1QlGCkEABXpqdUKQ/wb6zc43SvSFR8Frbes kprjOiPPrnExw8mSxXripGiREHgbSTc8oYja+awoG0nU7IAzvplu0OxqxLE4I4LtLi3bVvvOwkss+ks+ ZFeC+MnyNzmAsEN1SVPOcnyM5faqyhdWtMkuRIdCpF 3S4kAPOoyvm/GHZ+2IJZ+6QmyNqoJ9q9Z4LAzdeu8nt5kyrfeDc8YLftEBspB+pbo6ECrmzVpcxWPROc sqedT2AOfIEWLAuGB0WbE/Acu6+u6w631aWr4hHXCxo0QMoxDLrKWixgxkyyCNkk7AVV+nfDSMCKo6DI fDAFkuy3ZfvyWs9vE87boBhGXpahv1Q/aUl2BvuLHu KTF0tOHMIkmKIhHp/Uq8zYl6txTy/QxGtTailT/uZpfsenyWsvlkTgExhAW+kd4l5NlqYHXGhRLkV3Lx dUsr1ZhLFhjsjdVnWrlJgaztOwteo+1yiio5mUjGBtXT3PSVUdeYLY5dH5j6ErU7TLDY3t293gmH+sign painter helper [file] clothing patternmaker+Cm/+ChKYl0rttYcAHzVUbVPzTM+UJYTIh/yo6l [file] FoXxDlny9gT6et6ZuVAZADrnowAhv7YDSPrPE0YEaoOqCpEiYQV9riAiJCyWv52p9QFPnxoC4E+JOSÉ+nY [file] nghhJ2JaB/yIHqxv+u2XQmsMh7A+6cQorYmm2gKWO0Ja52Nf/Bt+HBn8bnUySpeQ5yTD+barrel brander+K6z9VMf [file] sfUv6swHV+vp analysis/Ywpd3W/3KeuQtUnRngrVcRGdabtIT [file] yu5qdbkWekFkxquFD61N8aHel+0IsPIqNilWBgM9d2EPoyzU+8Ol2t6gztnsYri0SAl2jIsekgWA+Mary Anne [file] product/device technologist/EDfVpRAOINANoDjcQe7Oqyn/HNBsp3aGweOMK5Az7dyeX2vgU/RGnb8UjLU9TyZUVAZbHbpqb6am NaA4CZFbyUwYFy3A/4BXKGDXwPAMhfjJSCr6B0qpTi4D3eHpPAjfhb1W7lj6Z5JnRMVVl6snXS5rpr4g 7MlJnaJO9VGpyglBDDVoY9GJSLu0TJqDisBU+dwWkW /nXDZSosBeTEO04ZyMTiuRHvU857t4hipxOpr7qN9zFRSqqu/mTiLWoBFwvW9Xx0CKFpJmFsyL4JBICm sUl9ImP0+PEaM+XP9QI8aozu3sP7Li/bhgjp920Zs1XHpVttfrjiJBqWgZDSOBVg8TIoL3LXnzaqP9O4 vyX3pYeT6yqlqRiO3J/W9B/u7hck5LAuejFaSUBljz FoxyN2UMbuJASt4sgo8cf7fD9PfQJp49yy3yn6JQ/6GxjyEn9u8kABsB1Q8jlDJgHTNJ1qQaxy+i9C6W TiOFMygy7r9qPb9FxSoiuFJA0VLZ6qBu1q8nsMNuoke+TQ1BqLppLziqHYvKD1YRNxNklPT4ylTxjdV0 7dnNlsnC0G8NdGS7n4ejHI0EWQQxsBujJmfP84TSeT uuK4DvgXG6jSHjOBmVX0gTWp0BNiqP8RdHok+pWDG9WSp2ftD6Td6apMeDD5pKfKEHd6PvsIIJHiKpt0 ajR3dZLGJEO8KDi+qmJMp2a2JeL/m56UgN1Bdl3L+W7xiuWPnLwqrkoaWtiI4oOC4Se/pf2F2bji3M3m iOSMrxmhI+jeauc4+H9DgrvNwIA0WIGhh09GcF/bernarda [file] vt5qvGklK/Rocío+FGfCF9BRTUVgK0JTcdEyObh7zmty [file] appliance service supervisor/9pfUHtM/eN9xf/XR4kgF9fXE39FEWrqGj8wGEw4bnwTVML3fb5d9yMQs568xNXblYQPm2nz0ZM6P0 [file] CzGCW3YemW/EchzOEj86EiB/q+SR1ORNWgsAvT1+substation electrician [file] isDt8wUFWIY+3wbmBLHJqeNvEIzpAZ1N1RJcD3QKsjuN5bnOuAhl63AKZOkztnNKO2l89ipzNSXH0/appliance service supervisor +lGF/jjrBvlWHmN2P88VZ4wOCjcZsR3+2ZYS5uPMIv VBYFB8iYxLMJ47WWke7bA0uiOoHAZqoyRF1bHqW/kTdkQd/oNfH2hMFbImFPcES47QcarrZcwSTh4OjG agzF5q9eoxj994YyG3oqclqEcPGZlV4PyOXVkS/X6ps0QqHcBUc4QToH00b4BOL/DjxqYwRlozjnedPC VHbjtaZi/lHLVoT6w9BPOF1NaMekSg0ctyZWSxsoLy ivVgEN1azsIQyY4ecydqeUHTVf8LOeTv958YIeJSI5L+SbzkULtwTsIc7wWzYSi2WASvLdjdZuFFvnIF rf/DapK2+S5MI1+U8XPpjVjkhDgJtaezHrOsIPNeb73McP3pQ33H7Bp4++xWjkSZ0cdQUEx3VG0tOYy1 FNHq0edx1zi3RydNjWoPimpmiws1QBxZWZXZKz8jVc 6YX4Ftbs63dHpmzPKhr7fMqmBcuU6C+SJOr8IA6LbptuZFwZcdFbJpC+6OsPSBPawSwFJDcBiUW9OYro /MOrZ+QGuHj+fZyZO0/QLr4PxHCh0uoLhKugMDJCb90e3vkdEj1kVKKM9royo1+6zACCrmjOoVJw/9ve xc0jAN13AmjU9odc/s7Nne3DaA73FXIT48Hw2JhKV8 ycxjJ+3XvY2cgC1x2VlWwdHgj3Inefle8sN5a71OgTN050ALp4rWyAMkf2kgO/oXNmxJbFnDMuJAE8AB d+Wq7mOrQuB2xqXwhjqyW9QYpKDnak9Q+xLOritfZiCnx9vXT2jF60Enhzwhr4hnolpzlCGY9PBtSevl Jmn66bg65zYpKeRoI1BP7gQqLz9mm8dF77SL4ObF2D L7oPZR9sMtbzXZ3JXaRwzYKsKzqgIq84m2jfWxDVEr20O5eLXZzFn/freedom/wsEQuxwGooV9iEmXyRMq01V [file] v4tMjkYG8M52Y8oaJWXWN09xV4O7IQi403R0v2rN4r pccL59plR/cQgaOk3IzMtk8PgdBH6YYvmgEOpixkrg6yzNV+Polytechnic Teacher/vbcep/kWRAdsI6zj+qwP/9YPoxfE [file] rI7qQesmK40EfTJwZiaX5l7e+Maria Del Rosario/4gg+r4VO452gz [file] qzz6ZmDbpnUyxbFRfpFtk5rc4Y8ly36yimEBTMtuvpzECbx/wLhjnB7J+HnyL3ldccxsMSn/BLM5y+Executive Director Contract Shop [file] jiLoSHdhSelect Specialty Hospital - JohnstownJeZ+WiFk04QkbZLCy27LSj9xL6zZqg7T+47zKZ6gKiYFY28PrrE0RCjV9m/ozHjLwayK bh0XIYUt3HHa+jQ8e43ceyu3gKSj1KZzc1GOFbkRrN qGAWXl1iQ79efzReipqg+yeO8PQW9QryhjufswYRKi8bff4UIFD28kGtYJNGwteAypepvb3+mVJn4pvS kAcQySq1oVTKfMsN3qe9eFiG9fsnkKpEZY7r+z9ffHkmWkO0lnxZqcuRlUR539dKnMqs0FutqfZVvPI+ adMZX7NkK/ZRKnlE4aQmBz5v3RLYqg8m9I6AgMBgO9 vRwUe7+k1s6QUTLU91YM0SlNZ3/Ms1Vr2r1wAI4gMRoIKuGvOfQBfKS4HCCB7pt4x0nOw7LvpQ32KBSF 5JMlDsImaGlQkSIg3B1bZ2W1GHyH1rRdWDCypNfBu2Wy6bNe1SUkEtcrL/s8Mw2D7/P8stPImt54psgY zq+jXaF8ygmK3M+ghvdj7oCVMvq2wjo6Ti9zJLEjyI DAlm8OjBKusorN+OVG9MdkEYExR884wMCgMcxfa+zRna+BKkeGwtygePJRKt5Uye4B/KdAH8zwn4stQO gxP/8foAFtw7XbjeXFx1bCrPum32CVaPZGQbIaZZTUDlMHA0T+ahKRWVlrdu54TSqNgFV7zAVs9+J7AI MJrsxBe+xrIIirEeQa7RWYwbm2oR2CnMtBUiH7mShR jeUzxrFaXHeJ39VrxO+/QP5eNb39ddmGKWvEKy4l79hOr55HcO4YLTq7FRpzWGg9XrF8k8qNLNGJzTRe yqu4gBaF66NZfSuluXBnKjqEEU7mBCqybieYDT8+fC5Ws+M7VyAlf+pmdyE1G1eoGghSs79GCMA5ayel CNIzWH3KjjzshijY3xgy7aZfkNk+Ow9Diem2OgjavW u5Q1hmL60ggQ7xnUjpUiZJgLbQgK9Tptz2d0JXC7N1f/BW9AmMCDJjJOLM6yKrnjPN6IHq6xt33Q+Lenka [file] q1U8Orrt+l6RPIiPKetl93WKUYlH+Ss8B/3Wu88yOrQz+w7bGR57a24A7M0v8EJHy56P3R1GKEP+w+Jose hgILFMg1YfBM8j2Zowoc/WCu49NReP5G60NGHWsa5MheRs2RxbYt1/Wd18MsAFv3+iQaQozUIvAQUFpY lT2iAWO1OwaZezWos50zE3WYHnB5PG6F7i4I9aJESb [place] [address]+d++bNm/yr2up7452oE/Zf54/FfL772ziyW+ptqzcYHpASLnWzLO8qSrLTlcv4biBpr0jQ [file] LsEWoddC3xAwvJSOQrN6A1US/+5RveLtrUckOWTf982b11M+3+zimiK3oaX4fWC4ICFmayh+Radha+cCk2 6zZDIqjy9TwwwELsE0IjPGN+i8r/cpwv7eakG+VoYyxmEvaSMFlAy6El0UbIBEF/aozePnHbvRL7e/José [file] enterprise application analyst+hSDzvqTIU9bc1W3WjfkZ9exv++vUNKROT9eVb//Iky/x4chXF7Lv3Nb+4tPn8uduNRzwheXnVRaf [file] +5v+41Jzf9A8cq5W7wbzoYrvbuIJnJyAoVFLcN [file] vp analysis+ginB73LNXJYT5Y0ZEXT5tjfM9ZRwrc7FeyF0IMg [file] RRQ1LZa+jSi0rwcM4BUxhEOnKYzlxT5XS+8BIbt30w+AxEEnuLfSe+dialysis social worker+uyTLsz0WkUDY5ypeGMVWO5 [file] AF/HWyBMPpQzSJZ4wuGxbO6YHD8fm0IeHJ9Gw0JqmmN0agDaJLb1KHy8DFoHKwMeXZ5W ID Date Data Source [id number] 12/17/2020 11:15:00 AM EST [facility] Name Value Range Interpretation Code Description Data Ruth rce(s) Supporting Document(s) Follow Up [facility] DZFBJf0kGsTIEwJvYTYsFtgZPXwdAKubNCLvM0L7GUdsUa3CWQbyrkQwDNPfYq1+TSDdBO4flr4fUULq gMy [file] Health Information Managers+u0V5e8bBxINKrJoBFecxk/ldonIKG84vK6Fh3 [file] Qekt71Otk94OCC6DxO2f16gfyAu11B3bv1brD615sI 6HeJ9aLLPbxcFyBB0yTIWQPJc+QsKYnWsoRz1+ek1WyY97GKNwzfyF7xvvCuVP64Jk9jMTPydlcfGjA9 L7FEfLoJdYK7kZ3Di4tKYj5ui9Qyl8g3E4EQidV9YS1l7tafGl8RxXqo5XLvUiA/D8X0JrCsHCD3t5B5 4zVNrn8W3zPdGCRNkSqGwZvTbzMHu1SAVQRw6l8ZOd kNSpvLpwF57HSwolNPDcKUvTmhaMV20owMWMhHyTylqPWBbR5EGlY929HJD8j5ak0Cwwh+LNQg3DS5VS zVSevjO6Ch30sq6AQp34RudxuKtdmjhC6s0iQNSQne5UmhR20BYwpFKCsL0JUQ2bp3DXMG3FluxY3K1n 6Vm3INyOltKtaVi34c0vsk8irVbC5peQY1Gt+7sNt/ Jjzxrf1kGxHkBlmqnJ7x9vpf0GRcW60SPmPDNcuelpeJ4GVbryiDXu7/y3ZJiIaL+DMif8fFsqcA/Specialty Plant Supervisor [file] substation electrician+u8ZrZZmwi98GAWDg4EksMkDUC3x0/McoKG3RHtWU5tK7zCVn4KaSuVB8OF+9d/GL77lFgZFtzSYE9 [file] Moh+8jh9aKbGc6ERLVYk+o6rT5k7bxNIOH++X1OPyKrzUgtL2ddF9KX+PRncNL/GAS LEAK TESTER/Qkx44PkpmCGLs [file] Data [file] jOamneNDjkdMFaHY8uHF7l8Ts1K9t1Rb+uhhP/hhu5ed/KqrLF/boom pump operator+oZiflThdVJpXoBTaQyJq25XQ5 [file] [place]+EZRGGoBOX1ZN2BKPPAAyfhQGeh7ICDWKNZQ/rPHx0FE/mha8suNWnIInW/VqWysAviWrjRpro801 [file] qyMkQAHjEb0Zt5+17Y4UfsHw7fu0i9RopLBDK5yWDYthbFtM1DuBu+v2epVI6+PfnO6uePc2KGnW+[place] [file] 8SV8aIsC832D2Mw//3o9ondWadsXkDYdJVY46M+office messenger [file] Km+ybr6C71+cfLRHfE3wxRBYdHWhNqsCoKggR+mhZqCOnM/RZHd5R0xYquKa7mYdZhDTABqNBdKpRKL iBlePWOiLrlI56ccLFrPOxoZ7Opy1YxBJzGWmd2w9k eUoiNoioauVRmHIY78aE4cWPO97M++DLmwsb8qwqAqaXIlwzfF2fXoe4OQjCeq/P+qsW7MPCb8F5Nf/1 3Mh5j2kCEQOSU7Ib9o0Lw6ch1WiXDsXXqZ7rPoviWsxz+NqfcPeyK56xYWNIYU0I2YROYkoI1ZEBaQOU k9UEcJW68QRHSXTmilDVs2JbWSVDu+QQpw1YNE0+/V u/ox93cg4axp7doMvC/2LhF9onuq2+z8Qa5ypGQ8wZ7L7pvYQ3gozNtFto4IP9jqFWRU+bnuvo127qma 6DFeA8DblNw+YlQNa5ZWxwcWM6CL8JEgS/5j+Id1eyTVzsYMBk17/43JB/rpo9iOJCdUbqLbvrEaFU9/ MNGPLT46FF6pC/Sh5Re9Hnz2Zj2XNeLQAIa2qjv5a2 AADfyl6vdXWw5sMO04QTT/YK9eQpn8Kr7Wg6es6iIzzLBQMvJ/aYM2824W/ODbKHymAmuy6Spb16H2Oe njaeDKyyh6SA69auz8zGcJoFfeP7PJLhWGdvmhYnn0n8zQUB0YEHAeT96L4+motors and generators inspector/C9jf5WK8zZiGiG/M [file] 55PyQSYBWaxsBTMxReV0a6vh8MYDt15ozcv29ib/José [file] Vp Data/8XnarAFkJ9bZ6CkM/9ylxZ4VP5rG2aM/LVQ78m/ [file] KuxKUxMzT8uxAPje+aCGj56TCwg1/Ana Paula+3qxh9ZPEVjtsMc+FBjtDHjyHMGxiJYTEs+9fE9H5JoeiKFY [file] jQ7DX3e/S+kelly machine operator/t0BkIWAjMqfe9hAlNk/jwe+bke9T5QuDMRRP7wWCtV9+giZ4TA75rUuyFwsMvn6TgD [file] KIDtZI0WCmrG8896I+/SkTgo++W/sCT/bym7Kcz7UjpibY+NKKpp/wn13nwP9Ke/technical sales associate/cMbZK5skJ8Yc [file] y1DtrrG8gtRjUSkrCLtkBHQ6YCidWFKBKc== ID Date Data Source [id number] 09/17/2020 10:32:26 AM EST [facility] INFORMATIONPatient MRN Name Date of Age Gend*PT [id number] Santosh Acuna 1935 85 years M ---PT Location Admission Date/Time Visit ID Attending Provider --- --- --- --- EPI ID CSN Admitting P beronica [id number] ---Cardiology History and PhysicalName: Santosh Acuna Gender: maleDate of : 1935 Age: 85 yearsPrimary Care Provider / Referring Physician: [facility]ECK [facility] Telemedicine VisitPatient was identified by name and date of .Verbal consent was obtained from the patient for this telemedicine visit.Patient is aware of the risks, limitations, and benefits of a telemedicinevisit.This telemedicine assessment was conducted remotely with the assistance ofelectronKiwi Semiconductorommunication technology: Telephone Only Codes 76225: 21- 30 minutes of medicaldiscussion: Telephone OnlyCurrent [...] file Gets together: Not on file Attends sabianism service: Not on file Active member of club or organization: Not on file Attends meetings of clubs or organizations: Not on file [facility] ip status: Not on file Intimate partner [...] by mouth 1/2 POM/WED/WED, Disp: , Rfl: Timber-3 Fatty Acids (OMEGA-3 FISH OIL PO), Take [...] parts of this document, were dictated using [employer]. A reasonable attempt at proofreading has been made to minimize errors.Please call with any questions or corrections. Name Value Range Interpretation Code Description Data Ruth rce(s) Supporting Document(s) Procedure Social History Code Duration Value Status Description Data Source(s ) Alcohol intake 09/24/2021 12:00:00 AM EST Current drinker of al cohol (finding) completed Current drinker of alcohol (finding) [facility] Vital Signs ID Date Data Source UNK Name Value Range Interpretation Code Description Data Source(s) Body weight 88.[address] [facility] Body height 72 [in_i] 72 [in_i] MEDENT ([facility] ) 6'0" Body weight 195.00 [lb_av] 195.00 [lb_av] MEDEN T ([facility]) Body mass index (BMI) [Ratio] 26.4 kg/m2 26.4 k g/m2 MEDENT ([facility] ) Body mass index (BMI) [Ratio] 27.28 kg/m2 27.28 kg/m2 eCW1 ([facility]) Heart rate 83 /min 83 /min eCW1 ([facility]) Respiratory rate 18 /min 18 /min eCW1 (Count includes the [facility]) Body temperature 97.4 [degF] 97.4 [degF] eCW1 ( [facility]) Systolic blood pressure 120 mm[Hg] 120 mm[Hg] e CW1 ([facility]) Diastolic blood pressure 68 mm[Hg] 68 mm[Hg] eCW1 ([facility]) Body weight 195.6 [lb_av] 195.6 [lb_av] eCW1 ([facility]) Body height 71 [in_i] 71 [in_i] eCW1 ([facility]) Body temperature 96.4 [degF] 96.4 [degF] MEDENT ([facility]) Body weight 195.6 [lb_av] 195.6 [lb_av] eCW1 ([facility]) Body height 71 [in_i] 71 [in_i] eCW1 ([facility]) Body mass index (BMI) [Ratio] 27.28 kg/m2 27.28 kg/m2 eCW1 ([facility]) Heart rate 88 /min 88 /min eCW1 ([facility]) Respiratory rate 18 /min 18 /min eCW1 (Count includes the [facility]) Body temperature 97.4 [degF] 97.4 [degF] eCW1 ( [facility]) Systolic blood pressure 110 mm[Hg] 110 mm[Hg] e CW1 ([facility]) Diastolic blood pressure 70 mm[Hg] 70 mm[Hg] eCW1 ([facility]) Patient Treatment Plan of Care Planned Activity Planned Date Details Description Data Source (s) Timber-3 Fatty Acids (OMEGA-3 FISH OIL PO) [facility]
[2021-10-08] MEDS ORDERED: BISACODYL 5 MG TAB PO PRN (10:55)
[2021-10-08] MEDS ORDERED: PILL CUTTER 1 EACH XX PRN (11:40)
[2021-10-08] MEDS: ENOXAPARIN 40MG/0.4ML SYRINGE (J1650 PER 10MG) SC SCH (11:50)
[2021-10-08] MEDS: dexameTHASONE 4 MG/ML 1ML VIAL (J1100 PER 1MG) IV SCH (11:50)
--- NOTE | 2021-10-08 11:55 | HPEPDOC ---
[facility] Medical History & Physical Date of Admission Oct 08, 2021 Date of Service: Oct 08, 2021 Primary Care Physician: David Wheeler Attending Physician: JOSE A KRISHNA MD History and Physical CHIEF COMPLAINT: SOB x 1 day HISTORY OF PRESENT ILLNESS: Patient is an 86-year-old male who presents today due to shortness of breath for the past day. Patient reports that he was diagnosed with Covid approximately 13 days ago and received monoclonal antibodies on October 03, 2021. Patient reports that he had rigors last night. He denies any chest pain or heart palpitations. Patient reports shallow and quick breathing along with the shortness of breath. Patient denies requiring oxygen at home. While in the ED, patient was on 3 L oxygen oxygenating at 95%. Patient reports that he has lost his sense of taste and smell since his Covid infection. Patient reports that he has a decreased appetite for the past 3 days due to this loss of sense however he continues to eat. Patient reports that he has not had a bowel movement for the past 3 to 4 days. He denies any abdominal p ain at this time. He reports that he has received the pneumonia shot, however declines a flu shot administration every year and reports that he did not want to receive the Covid vaccination and thus is unvaccinated. While in the ED, patient's EKG showed a second-degree AV block type II, with no symptoms during this episode, telemetry showed returned to sinus rhythm. Patient denied any heart palpitations or chest pain. A follow-up EKG was ordered while in the ED. Patient reports he has a living will and he is DNR/DNI. PAST MEDICAL HISTORY: Essential hypertension Coronary artery disease with stent placement, 10 years ago Hypercholesterolemia GERD History of edematous polyp of the colon Gout Arthritis History of night sweats PAST SURGICAL HISTORY: Umbilical hernia repair, 1982 Left knee arthroscopic surgery, 1998 Benign lip lesion removal, 2003 Right rotator cuff repair, 2004 Left rotator cuff repair, 2007 Coronary stent placement, 2008 Bilateral cataract removal, 2009 Left carpal tunnel release, 2011 Lumbar laminectomy, decompression and fusion, L4-S1, 2013 Colonoscopy, 2015 SOCIAL HISTORY: Patient is a former smoker and the last time he smoked was approximately more than 10 years ago Reports occasional alcohol use Denies marijuana and illegal substance use FAMILY HISTORY: Noncontributory ALLERGIES: Please see below. REVIEW OF SYSTEMS: CONSTITUTIONAL: Reports rigors yesterday, denies any fevers at this time, denies weight loss, reports decreased appetite due to dysgeusia. HEENT: Denies otorrhea, rhinorrhea, ocular discharge, denies sore throat, reports occasional cough nonproductive. CARDIOVASCULAR: Denies chest pain, heart palpitations. RESPIRATORY: Reports shortness of breath that started at couple days ago. GASTROINTESTINAL: Denies nausea, vomiting, diarrhea, reports constipation as he has not had a bowel movement for the past 3 days, denies good appetite at this time but reports that he still eats. GENITOURINARY: Denies dysuria. SKIN: Denies any new rashes. MUSCULOSKELETAL: Reports overall myalgias and generalized weakness PSYCHIATRIC: Denies auditory and visual hallucinations, denies anxiety or depression. HEMATOLOGIC/LYMPHATIC: Denies easy bleeding or bruising HOME MEDICATIONS: Please see below. PHYSICAL EXAMINATION: VITAL SIGNS: See below. GENERAL APPEARANCE: Patient appears younger than stated age, is sitting back in his gurney, in no acute distress oxygenating well on 3 L of oxygen. HEENT: Normocephalic atraumatic, EOMI, no rhinorrhea, oral mucous membranes moist. CARDIOVASCULAR: Regular rate and rhythm, no murmurs rubs or gallops. LUNGS: Right lower lobe rales appreciated on exam, good movement of air. ABDOMEN: Soft, nontender, nondistended. MUSCULOSKELETAL: Upper and lower extremity strength 4 out of 5 EXTREMITIES: No clubbing/edema appreciated, radial and pedal pulses +2. NEUROLOGICAL: No focal motor deficits, cranial nerves II to XII intact. PSYCHIATRIC: Affect full and open, alert and oriented x4. LABORATORY DATA: See below. IMAGING: Chest x-ray, 10/08/2021ilateral patchy interstitial and airspace opacities have developed since the last exam. There is a patchy opacity in the right upper lobe is well. The pleural angles are sharp. The cardiomediastinal silhouette is unchanged. The osseous structures are unchanged. MICROBIOLOGY: Please see below. ASSESSMENT/PLAN: Patient is an 86-year-old male with a past medical history of essential hypertension, coronary artery disease, who presents today due to gisela rtness of breath secondary to pneumonia infection likely community-acquired pneumonia superimposed on recent Covid infection. #Hypoxia secondary to community acquired pneumonia in the setting of recent Covid infection Please encourage awake pronation Administer dexamethasone 6 mg IV daily Follow-up x-ray in a.m. Rocephin IV daily Azithromycin daily Blood cultures pending Continue to monitor daily CBC with differential Continue to monitor daily CMP Encourage incentive spirometry Isolation: Droplet precautions Continue to titrate oxygen therapy as needed for oxygenation more than 94% #Second-degree AV block found Patient did not have any symptoms the finding of second-degree AV block was only found on EKG, returned back to normal sinus rhythm on telemetry Repeat EKG #Hyponatremia Patient's admitting sodium level is 133 Corrected to 134 on correction of glucose #Transaminitis, likely secondary to recent Covid infection AST level 85 on admission, baseline at 13, on 09/18/2021, before Covid infection. ALT level 113 on admission baseline at 17, on 09/18/2021, before Covid infection Alkaline phosphatase level elevated at 143, baseline at 56 on 09/18/2021, before Covid infection LDH level 282 elevated, mildly elevated Continue to monitor daily CMP #Constipation Administer Dulcolax as needed daily #GERD Patient takes esomeprazole at home, administer omeprazole daily #HTN Continue home medications, lisinopril and amlodipine #Hyperlipidemia Continue home rosuvastatin #Gout Continue home allopurinol VTE prophylaxis: Lovenox 40 mg daily Disposition: Admit to Covid unit, expect at least 2 midnight stay. Vital Signs Vital Signs Date Time Temp Pulse Resp B/P (MAP) Pulse Ox O2 Delivery O2 Flow Rate FiO2 10/08/21 10:30 111/55 (73) 10/08/21 10:29 70 96 10/08/21 09:00 98.5 10/08/21 06:55 Nasal Cannula 3.0 10/08/21 06:45 22 Laboratory Data Labs 24H Laboratory Tests 2 10/08/21 07:25: 10/08/21 07:36: Prothrombin Time 13.5, Prothromb Time International Ratio 0.99, Activated Partial Thromboplast Time 32.1, Fibrinogen 722H, Anion Gap 8, Glomerular Filtration Rate > 60.0, Calcium Level 8.7L, Magnesium Level 2.0, Ferritin 490H, Total Bilirubin 1.0, Aspartate Amino Transf (AST/SGOT) 85H, Alanine Aminotransferase (ALT/SGPT) 113H, Alkaline Phosphatase 143H, Lactate Dehydrogenase 282H, C-Reactive Protein, Quantitative 12.20H, Total Protein 5.6L, Albumin 2.6L, Albumin/Globulin Ratio 0.9 10/08/21 07:37: Immature Granulocyte % (Auto) 0.8, Neutrophils (%) (Auto) 93.2H, Lymphocytes (%) (Auto) 0.8L, Monocytes (%) (Auto) 5.0, Eosinophils (%) (Auto) 0.1, Basophils (%) (Auto) 0.1, Neutrophils # (Auto) 9.1H, Lymphocytes # (Auto) 0.1L, Monocytes # (Auto) 0.5, Eosinophils # (Auto) 0.0, Basophils # (Auto) 0.0, Nucleated Red Blood Cells % (auto) 0.0, Blood Gas Bicarbonate Standard 27.0, Venous Blood pH 7.485H, Venous Blood Partial Pressure CO2 35.4L, Venous Blood Partial Pressure O2 73.8H, Venous Blood Total Carbon Dioxide 27.2, Venous Blood HCO3 26.1, Venous Blood Oxygen Saturation 95.1H, Venous Blood Base Excess 2.9H, Lactic Acid Level 1.3, Total Creatine Kinase 42, Creatine Kinase MB 1.0, Creatine Kinase MB Relative Index 2.38, Troponin I High Sensitivity 28.0, Procalcitonin 0.56 CBC/BMP Laboratory Tests 10/08/21 07:36 10/08/21 07:37 Microbiology Microbiology 10/08/21 Blood Culture, Received Pending 10/08/21 Blood Culture, Received Pending Home Medications Scheduled Allopurinol (Allopurinol) 100 Mg Tablet, 100 MG PO DAILY Amlodipine Besylate (Amlodipine Besylate) 2.5 Mg Tablet, 2.5 MG PO DAILY Ascorbic Acid (Vitamin C) 500 Mg Tablet, 1 TAB PO DAILY Aspirin (Ecotrin) 81 Mg Tablet.dr, 81 MG PO DAILY Esomeprazole Magnesium (Esomeprazole Magnesium Dr) 20 Mg Capsule.dr, 20 MG PO BID Lisinopril (Lisinopril) 20 Mg Tab, 20 MG PO DAILY Rosuvastatin Calcium (Rosuvastatin Calcium) 5 Mg Tab, 5 MG PO DAILY Turmeric Root Extract (Turmeric) 500 Mg Capsule, 500 MG PO DAILY Allergies Coded Allergies: No Known Allergies (Unverified , 10/08/21) A-FIB/CHADSVASC A-FIB History Current/History of A-Fib/PAF?: No Current PO Anticoag Therapy: Yes GME ATTESTATION GME ATTESTATION My faculty preceptor for this patient encounter was physically present during the encounter and was fully available. All aspects of the patient interview, examination, medical decision making process, and medical care plan development were reviewed and approved by the faculty preceptor. The faculty preceptor is aware and concurs with the plan as stated in the body of this note and will attest to such by his/her cosignature. Sam Gale DO Oct 08, 2021 11:55
[2021-10-08] MEDS: ROSUVASTATIN 10 MG TAB (CRESTOR) PO SCH (12:03)
[2021-10-08] MEDS: ASPIRIN 81MG ENTERIC TABLET PO SCH (12:03)
[2021-10-08] MEDS: OMEPRAZOLE 20 MG CAP PO SCH (12:03)
[2021-10-08] MEDS: allopurinoL 100 MG TAB PO SCH (12:04)
[2021-10-08] MEDS: ASCORBIC ACID 500 MG TAB PO SCH (12:04)
[2021-10-08 12:26] LABS: APPEARANCE, URINE CLEAR (CLEAR); BACTERIA, URINE AUTO NEGATIVE (NEGATIVE); BILIRUBIN, URINE AUTO NEGATIVE (NEGATIVE); BLOOD, URINE BLOOD NEGATIVE (NEGATIVE); COLOR, URINE YELLOW (YELLOW); GLUCOSE, URINE (UA) AUTO NEGATIVE (NEGATIVE); KETONE, URINE AUTO TRACE mg/dL (NEGATIVE); LEUKOCYTE ESTERASE, URINE AUTO NEGATIVE (NEGATIVE); NITRITE, URINE AUTO NEGATIVE (NEGATIVE); PROTEIN, URINE AUTO NEGATIVE (NEGATIVE); RBC, URINE AUTO 0 /HPF (0-3); SPECIFIC GRAVITY URINE AUTO 1.016 (1.002-1.035); SQUAMOUS EPITHELIAL CELL UR AU 0 /HPF (0-6); WBC, URINE AUTO 1 /HPF (0-3)
[2021-10-08 12:39] LABS: INFLUENZA A AMPLIFICATION NEGATIVE (NEGATIVE)
[2021-10-08 12:40] LABS: INFLUENZA B AMPLIFICATION NEGATIVE (NEGATIVE)
--- NOTE | 2021-10-08 16:55 | ECGEPIP ---
[facility] Test Date: 2021-10-08 Pat Name: SANTOSH MATIAS Department: Room: 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
--- NOTE | 2021-10-08 17:02 | ECGEPIP ---
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
[2021-10-08 17:34] VITALS: BP 131/68
[2021-10-08 20:00] VITALS: BP 123/58
[2021-10-09 04:00] VITALS: BP 113/55
[2021-10-09 06:22] LABS: BASO % 0.1 % (0.0-1.0); HEMATOCRIT 39.6 % (42.0-52.0); HEMOGLOBIN 13.2 g/dl (13.5-17.5); LYMPH # 0.4 10^3/uL (1.5-5.0); LYMPH % 4.8 % (24.0-44.0); MEAN CORPUSCULAR HEMOGLOBIN 31.4 pg (27.0-33.0); MEAN CORPUSCULAR HGB CONC 33.3 g/dl (32.0-36.5); MEAN CORPUSCULAR VOLUME 94.1 fl (80.0-96.0); MONO # 0.5 10^3/uL (0.0-0.8); MONO % 5.9 % (2.0-8.0); NEUTROPHILS # 7.6 10^3/uL (1.5-8.5); NEUTROPHILS % 88.7 % (36.0-66.0); RED BLOOD COUNT 4.21 10^6/uL (4.30-6.10); WHITE BLOOD COUNT 8.5 10^3/uL (4.0-10.0)
[2021-10-09 06:28] LABS: PLATELET COUNT, AUTOMATED 429 10^3/uL (150-450)
[2021-10-09 06:52] LABS: ALBUMIN 2.4 GM/DL (3.2-5.2); ALT/SGPT 116 U/L (12-78); BILIRUBIN,TOTAL 0.4 MG/DL (0.2-1.0); BLOOD UREA NITROGEN 21 MG/DL (7-18); CALCIUM LEVEL 9.4 MG/DL (8.8-10.2); CARBON DIOXIDE LEVEL 32 MEQ/L (21-32); CHLORIDE LEVEL 96 MEQ/L (98-107); CREATININE FOR GFR 0.92 MG/DL (0.70-1.30); GLOMERULAR FILTRATION RATE > 60.0 (>35); GLUCOSE, FASTING 137 MG/DL (70-100); MAGNESIUM LEVEL 2.1 MG/DL (1.8-2.4); POTASSIUM SERUM 3.9 MEQ/L (3.5-5.1); SODIUM LEVEL 133 MEQ/L (136-145); TOTAL PROTEIN 6.7 GM/DL (6.4-8.2)
--- NOTE | 2021-10-09 08:35 | IPNPDOC ---
Text Note Date of Service The patient was seen on 10/09/21. NOTE Subjective: Patient is on hospital day 2 after being admitted for community-a cquired pneumonia superimposed on recovering from Covid infection. Nursing staff does not report any overnight events. Patient reports that he only had a small bowel movement yesterday but continues to have trouble voiding. Patient was not given a stool softener yesterday. Objective: VITAL SIGNS: See below. GENERAL APPEARANCE: Patient appears younger than stated age, is sitting back in his gurney, in no acute distress oxygenating well on 3 L of oxygen. HEENT: Normocephalic atraumatic, EOMI, no rhinorrhea, oral mucous membranes moist. CARDIOVASCULAR: Regular rate and rhythm, no murmurs rubs or gallops. LUNGS: Bibasilar rales appreciated on exam, good movement of air. ABDOMEN: Soft, nontender, nondistended. MUSCULOSKELETAL: Upper and lower extremity strength 4 out of 5 EXTREMITIES: No clubbing/edema appreciated, radial and pedal pulses +2. NEUROLOGICAL: No focal motor deficits, cranial nerves II to XII intact. PSYCHIATRIC: Affect full and open, alert and oriented x4. IMAGING: Chest x-ray, 10/08/2021ilateral patchy interstitial and airspace opacities have developed since the last exam. There is a patchy opacity in the right upper lobe is well. The pleural angles are sharp. The cardiomediastinal silhouette is unchanged. The osseous structures are unchanged. MICROBIOLOGY: Please see below. ASSESSMENT/PLAN: Patient is an 86-year-old male with a past medical history of essential hypertension, coronary artery disease, who presents today due to shortness of breath secondary to pneumonia infection likely community-acquired pneumonia superimposed on recent Covid infection. #Hypoxia secondary to community acquired pneumonia in the setting of recent Covid infection Please encourage awake pronation Administer dexamethasone 6 mg IV daily Rocephin IV daily Azithromycin daily Blood cultures pending Continue to monitor daily CBC with differential Continue to monitor daily CMP Encourage incentive spirometry Isolation: Droplet precautions Continue to titrate oxygen therapy as needed for oxygenation more than 94% #Abnormal EKG finding Patient did not have any symptoms the finding of second-degree AV block was only found on EKG, returned back to normal sinus rhythm on telemetry Repeat EKG showed normal sinus rhythm with right bundle branch block which is consistent with patient's last EKG from March 2019. #Hyponatremia Patient's admitting sodium level is 133 Corrected to 134 on correction of glucose Stable at 133, no neurological symptoms at this time Continue to monitor BMP. #Transaminitis, likely secondary to recent Covid infection AST level 85 on admission, baseline at 13, on 09/18/2021, before Covid infection. ALT level 113 on admission baseline at 17, on 09/18/2021, before Covid infection Alkaline phosphatase level elevated at 143, baseline at 56 on 09/18/2021, before Covid infection LDH level 282 elevated, mildly elevated Continue to monitor daily CMP #Constipation Administer Dulcolax as needed daily #GERD Patient takes esomeprazole at home, administer omeprazole daily #HTN Continue home medications, lisinopril and amlodipine #Hyperlipidemia Continue home rosuvastatin #Gout Continue home allopurinol VTE prophylaxis: Lovenox 40 mg daily Disposition: Admit to Covid unit, expect at least 2 midnight stay. VS,Fishbone, I+O VS, Fishbone, I+O Laboratory Tests 10/09/21 05:36 Vital Signs Date Time Temp Pulse Resp B/P (MAP) Pulse Ox O2 Delivery O2 Flow Rate FiO2 10/09/21 04:00 96.9 62 17 113/55 (74) 94 Nasal Cannula 1.0 I&O- Last 24 Hours up to 6 AM 10/09/21 06:00 Intake Total 1565 ml Output Total 700 ml Balance 865 ml GME ATTESTATION GME ATTESTATION My faculty preceptor for this patient encounter was physically present during the encounter and was fully available. All aspects of the patient interview, examination, medical decision making process, and medical care plan development were reviewed and approved by the faculty preceptor. The faculty preceptor is aware and concurs with the plan as stated in the body of this note and will attest to such by his/her cosignature. Sam Gale DO Oct 09, 2021 08:35
[2021-10-09] MEDS: ENOXAPARIN 40MG/0.4ML SYRINGE (J1650 PER 10MG) SC SCH (09:19)
[2021-10-09] MEDS: dexameTHASONE 4 MG/ML 1ML VIAL (J1100 PER 1MG) IV SCH (09:19)
[2021-10-09] MEDS: ASCORBIC ACID 500 MG TAB PO SCH (09:19)
[2021-10-09] MEDS: ASPIRIN 81MG ENTERIC TABLET PO SCH (09:20)
[2021-10-09] MEDS: allopurinoL 100 MG TAB PO SCH (09:20)
[2021-10-09] MEDS: OMEPRAZOLE 20 MG CAP PO SCH (09:20)
[2021-10-09] MEDS: ROSUVASTATIN 10 MG TAB (CRESTOR) PO SCH (09:20)
[2021-10-09] MEDS: cefTRIAXone SOD 1 GM in D5W MINI-BAG PLUS 50 ML IV SCH (09:21)
--- NOTE | 2021-10-09 09:57 | REP ---
INDICATION: SOB, rigors, COVID+. COMPARISON: 10/08/2021 also portable FINDINGS: The technique utilized in obtaining the radiograph has magnified the cardiac silhouette and accentuated the interstitial markings. The cardiomediastinal silhouette lung hemphill appear stable. Scattered persistent interstitial and airspace opacities are again noted. No new abnormal opacities have developed. The osseous structures are stable. IMPRESSION: No significant change <Electronically signed by Amado Nolan > 10/09/21 0941
[2021-10-09] MEDS: AZITHROMYCIN INJ 500 MG, VIAL MATE ADAPTER 1 EACH in NS 250 ML IV SCH (10:59)
[2021-10-09 14:00] VITALS: BP 96/58
[2021-10-09 14:09] LABS: MYCOPLASMA PNEUMONIAE IgG 104 U/mL (0-99); MYCOPLASMA PNEUMONIAE IgM <770 U/mL (0-769)
[2021-10-09 22:00] VITALS: BP 120/60
[2021-10-10 05:46] VITALS: BP 102/58
[2021-10-10 06:28] LABS: HEMATOCRIT 41.3 % (42.0-52.0); HEMOGLOBIN 13.6 g/dl (13.5-17.5); LYMPH # 0.6 10^3/uL (1.5-5.0); LYMPH % 6.6 % (24.0-44.0); MEAN CORPUSCULAR HEMOGLOBIN 30.7 pg (27.0-33.0); MEAN CORPUSCULAR HGB CONC 32.9 g/dl (32.0-36.5); MEAN CORPUSCULAR VOLUME 93.2 fl (80.0-96.0); MONO # 0.7 10^3/uL (0.0-0.8); MONO % 8.1 % (2.0-8.0); NEUTROPHILS # 7.2 10^3/uL (1.5-8.5); NEUTROPHILS % 84.8 % (36.0-66.0); PLATELET COUNT, AUTOMATED 495 10^3/uL (150-450); RED BLOOD COUNT 4.43 10^6/uL (4.30-6.10); WHITE BLOOD COUNT 8.4 10^3/uL (4.0-10.0)
[2021-10-10 06:40] LABS: INR 0.99; PROTHROMBIN TIME 13.4 SECONDS (12.7-14.5)
[2021-10-10 06:41] LABS: PARTIAL THROMBOPLASTIN TIME 32.3 SECONDS (25.9-37.0)
[2021-10-10 06:55] LABS: ALBUMIN 2.4 GM/DL (3.2-5.2); ALT/SGPT 223 U/L (12-78); BILIRUBIN,DIRECT 0.2 MG/DL (0.0-0.2); BILIRUBIN,TOTAL 0.4 MG/DL (0.2-1.0); BLOOD UREA NITROGEN 26 MG/DL (7-18); CARBON DIOXIDE LEVEL 29 MEQ/L (21-32); CHLORIDE LEVEL 100 MEQ/L (98-107); CREATININE FOR GFR 0.89 MG/DL (0.70-1.30); FERRITIN 385 NG/ML (26-388); GLOMERULAR FILTRATION RATE > 60.0 (>35); GLUCOSE, FASTING 117 MG/DL (70-100); LDH LACTATE DEHYDROGENASE 262 U/L (87-241); MAGNESIUM LEVEL 2.4 MG/DL (1.8-2.4); NT-PRO BNP 226 PG/ML (<450); POTASSIUM SERUM 4.4 MEQ/L (3.5-5.1); SODIUM LEVEL 134 MEQ/L (136-145); TOTAL PROTEIN 6.7 GM/DL (6.4-8.2)
--- NOTE | 2021-10-10 08:48 | IPNPDOC ---
Text Note Date of Service The patient was seen on 10/10/21. NOTE Subjective: Patient is on hospital day 3 after being admitted for community-a cquired pneumonia superimposed on recovering from Covid infection. Nursing staff does not report any overnight events. Patient not have a bowel movement overnight and continues to have trouble voiding. Patient has not had stool softener yet. Patient reports that he is feeling worse than yesterday as he has had productive cough all night with yellowish sputum. Patient denies using an incentive spirometer yet Objective: VITAL SIGNS: See below. GENERAL APPEARANCE: Patient appears younger than stated age, is sitting back in his gurney, in no acute distress oxygenating well on 3 L of oxygen, however appears uncomfortable from coughing. HEENT: Normocephalic atraumatic, EOMI, no rhinorrhea, oral mucous membranes moist. CARDIOVASCULAR: Regular rate and rhythm, no murmurs rubs or gallops. LUNGS: Bibasilar rales appreciated on exam, good movement of air. ABDOMEN: Soft, nontender, nondistended. MUSCULOSKELETAL: Upper and lower extremity strength 4 out of 5 EXTREMITIES: No clubbing/edema appreciated, radial and pedal pulses +2. NEUROLOGICAL: No focal motor deficits, cranial nerves II to XII intact. PSYCHIATRIC: Affect full and open, alert and oriented x4. IMAGING: Chest x-ray, 10/08/2021ilateral patchy interstitial and airspace opacities have developed since the last exam. There is a patchy opacity in the right upper lobe is well. The pleural angles are sharp. The cardiomediastinal silhouette is unchanged. The osseous structures are unchanged. MICROBIOLOGY: Please see below. ASSESSMENT/PLAN: Patient is an 86-year-old male with a past medical history of essential hypertension, coronary artery disease, who presents today due to shortness of breath secondary to pneumonia infection likely community-acquired pneumonia superimposed on recent Covid infection. #Hypoxia secondary to community acquired pneumonia in the setting of recent Covid infection Please encourage awake pronation Administer dexamethasone 6 mg IV daily Rocephin IV daily Azithromycin daily Blood cultures have shown no growth. Continue to monitor daily CBC with differential Continue to monitor daily CMP Encourage incentive spirometry Isolation: Droplet precautions Continue to titrate oxygen therapy as needed for oxygenation more than 94% #Abnormal EKG finding Patient did not have any symptoms the finding of second-degree AV block was only found on EKG, returned back to normal sinus rhythm on telemetry Repeat EKG showed normal sinus rhythm with right bundle branch block which is consistent with patient's last EKG from March 2019. #Hyponatremia Patient's admitting sodium level is 133, 134 today without IV fluid administration Likely secondary to poor oral intake no neurological symptoms at this time Continue to monitor BMP. #Transaminitis, likely secondary to recent Covid infection AST level 85 on admission, baseline at 13, on 09/18/2021, before Covid infection. ALT level 113 on admission baseline at 17, on 09/18/2021, before Covid infection Alkaline phosphatase level elevated at 143, baseline at 56 on 09/18/2021, before Covid infection LDH level 282 elevated, mildly elevated Patient denies having any abdominal symptoms at this time Continue to monitor daily CMP GGT ordered, elevated CT abdomen/pelvis ordered, please follow-up. #Constipation Administer Dulcolax as needed daily #GERD Patient takes esomeprazole at home, administer omeprazole daily #HTN Continue home medications, lisinopril and amlodipine #Hyperlipidemia Hold home rosuvastatin at this time due to elevated transaminases. #Gout Continue home allopurinol VTE prophylaxis: Lovenox 40 mg daily Disposition: Admit to Covid unit, expect at least 2 midnight stay. VS,Fishbone, I+O VS, Fishbone, I+O Laboratory Tests 10/10/21 05:52 Vital Signs Date Time Temp Pulse Resp B/P (MAP) Pulse Ox O2 Delivery O2 Flow Rate FiO2 10/10/21 05:46 97.6 53 18 102/58 (73) 95 Nasal Cannula 1.0 I&O- Last 24 Hours up to 6 AM 10/10/21 05:59 Intake Total 1445 ml Output Total 2125 ml Balance -680 ml GME ATTESTATION GME ATTESTATION My faculty preceptor for this patient encounter was physically present during the encounter and was fully available. All aspects of the patient interview, examination, medical decision making process, and medical care plan development were reviewed and approved by the faculty preceptor. The faculty preceptor is aware and concurs with the plan as stated in the body of this note and will attest to such by his/her cosignature. Sam Gale DO Oct 10, 2021 08:48
[2021-10-10] MEDS: dexameTHASONE 4 MG/ML 1ML VIAL (J1100 PER 1MG) IV SCH (09:52)
[2021-10-10] MEDS: ASPIRIN 81MG ENTERIC TABLET PO SCH (09:53)
[2021-10-10] MEDS: OMEPRAZOLE 20 MG CAP PO SCH (09:53)
[2021-10-10] MEDS: ROSUVASTATIN 10 MG TAB (CRESTOR) PO SCH (09:53)
[2021-10-10] MEDS: allopurinoL 100 MG TAB PO SCH (09:53)
[2021-10-10] MEDS: ASCORBIC ACID 500 MG TAB PO SCH (09:54)
[2021-10-10] MEDS: AZITHROMYCIN INJ 500 MG, VIAL MATE ADAPTER 1 EACH in NS 250 ML IV SCH (09:57)
[2021-10-10] MEDS: ENOXAPARIN 40MG/0.4ML SYRINGE (J1650 PER 10MG) SC SCH (09:57)
[2021-10-10] MEDS: cefTRIAXone SOD 1 GM in D5W MINI-BAG PLUS 50 ML IV SCH (11:12)
[2021-10-10] MEDS ORDERED: ISOVUE-370 76% 100ML VIAL As Ordered ONE (11:30)
--- NOTE | 2021-10-10 13:07 | REP ---
INDICATION: Elevated transaminases and GGT. COMPARISON: None. TECHNIQUE: Standard helical CT after the intravenous administration of 100 cc Isovue 370 FINDINGS: Patchy airspace opacities are seen in the lung bases. There are no pleural or pericardial effusions. There is a hiatal hernia which is large. There is cholelithiasis. The liver and spleen are within normal limits. Pancreas and adrenal glands are within normal limits. There are multiple low-density renal lesions bilaterally. These all have water or near water density Hounsfield unit readings with no evidence of measurable enhancement on the larger cysts or perceptible enhancement on the smaller cysts. The largest on the right measures 1.9 cm and the largest on the left measures 3.8 cm. The abdominal aorta and para-aortic regions are within normal limits. There is descending colon and sigmoid colon diverticulosis. The bowel loops and the mesenteries are otherwise unremarkable. There is no evidence of a mass or adenopathy. There is no free fluid or free air. There is prostatomegaly. 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 Bone window technique throughout the exam shows bilateral pedicular screw placement L4, L5, and S1 with chronic degenerative changes at multiple levels IMPRESSION: 1. Lung base findings as described above consistent with pneumonia. 2. Hiatal hernia. 3. Cholelithiasis. 4. Bilateral renal cysts 5. Other findings as described above. <Electronically signed by Amado Nolan > 10/10/21 0376
[2021-10-10 14:00] VITALS: BP 82/52
[2021-10-10 15:00] VITALS: BP 106/55
[2021-10-10 17:07] LABS: BODY FLUID CULTURE Not indicated. (.); LEGIONELLA ANTIGEN URINE Negative (Negative); ORGANISM ID Not indicated. (.); SPECIMEN SOURCE Urine (.); URINE STREP PNEUMONIAE ANTIGEN Negative (Negative)
[2021-10-10 20:00] VITALS: BP 113/56
[2021-10-11 04:00] VITALS: BP 124/65
[2021-10-11] MEDS ORDERED: BISACODYL 10 MG SUPP PR ONE (08:10)
[2021-10-11 08:23] LABS: BASO % 0.2 % (0.0-1.0); HEMATOCRIT 38.1 % (42.0-52.0); HEMOGLOBIN 12.7 g/dl (13.5-17.5); LYMPH # 0.5 10^3/uL (1.5-5.0); LYMPH % 8.3 % (24.0-44.0); MEAN CORPUSCULAR HEMOGLOBIN 31.2 pg (27.0-33.0); MEAN CORPUSCULAR HGB CONC 33.3 g/dl (32.0-36.5); MEAN CORPUSCULAR VOLUME 93.6 fl (80.0-96.0); MONO # 0.8 10^3/uL (0.0-0.8); MONO % 12.9 % (2.0-8.0); NEUTROPHILS # 4.5 10^3/uL (1.5-8.5); NEUTROPHILS % 78.1 % (36.0-66.0); PLATELET COUNT, AUTOMATED 444 10^3/uL (150-450); RED BLOOD COUNT 4.07 10^6/uL (4.30-6.10); WHITE BLOOD COUNT 5.8 10^3/uL (4.0-10.0)
--- NOTE | 2021-10-11 08:33 | IPNPDOC ---
Text Note Date of Service The patient was seen on 10/11/21. NOTE Subjective: Patient is on hospital day 4 after being admitted for community-acquired pneumonia superimposed on recovering from Covid infection. Nursing staff does not report any overnight events. Patient has not not had a bowel movement since admission and continues to have trouble voiding. Patient reports that he is able to pass gas. Patient received a stool softener yesterday without stool voiding. Patient reports that he is feeling better than yesterday but continues to have a productive cough with yellowish sputum. Patient has been using incentive spirometry since yesterday. Patient denies any chills overnight. Nursing staff denies any febrile temperatures. Patient has oxygen saturation of above 95% on room air. Objective: VITAL SIGNS: See below. GENERAL APPEARANCE: Patient appears younger than stated age, is sitting back in his gurney, in no acute distress oxygenating well on 3 L of oxygen, however appears uncomfortable from coughing. HEENT: Normocephalic atraumatic, EOMI, no rhinorrhea, oral mucous membranes moist. CARDIOVASCULAR: Regular rate and rhythm, no murmurs rubs or gallops. LUNGS: Bibasilar rales right greater than left appreciated on exam, good movement of air. ABDOMEN: Soft, nontender, nondistended. MUSCULOSKELETAL: Upper and lower extremity strength 4 out of 5 EXTREMITIES: No clubbing/edema appreciated, radial and pedal pulses +2. NEUROLOGICAL: No focal motor deficits, cranial nerves II to XII intact. PSYCHIATRIC: Affect full and open, alert and oriented x4. IMAGING: Chest x-ray, 10/08/2021ilateral patchy interstitial and airspace opacities have developed since the last exam. There is a patchy opacity in the right upper lobe is well. The pleural angles are sharp. The cardiomediastinal silhouette is unchanged. The osseous structures are unchanged. Chest x-ray, 10/09/2021no significant change. Abdomen/pelvis CT, 10/10/2021 Lung base findings as described in radiology note consistent with pneumonia. Hiatal hernia. Cholelithiasis. Bilateral renal cysts. Other findings as described in radiology note. MICROBIOLOGY: Please see below. ASSESSMENT/PLAN: Patient is an 86-year-old male with a past medical history of essential hypertension, coronary artery disease, who presents today due to shortness of breath secondary to pneumonia infection likely community-acquired pneumonia superimposed on recent Covid infection. #Hypoxia secondary to community acquired pneumonia in the setting of recent Covid infection Please encourage awake pronation Stop dexamethasone 6 mg IV daily, patient has received 3 thus far. Patient is not hypoxic at this time. Rocephin IV daily, 2 doses administered Azithromycin daily, 2 doses administered Consider changing antibiotic regimen if transaminitis continues. Blood cultures have shown no growth. Continue to monitor daily CBC with differential Continue to monitor daily CMP Encourage incentive spirometry Isolation: Droplet precautions Continue to titrate oxygen therapy as needed for oxygenation more than 94% #Abnormal EKG finding Patient did not have any symptoms the finding of second-degree AV block was only found on EKG, returned back to normal sinus rhythm on telemetry Repeat EKG showed normal sinus rhythm with right bundle branch block which is consistent with patient's last EKG from March 2019. #Hyponatremia, resolved. Patient's admitting sodium level is 133, 138 today without IV fluid administration Likely secondary to poor oral intake no neurological symptoms at this time Continue to monitor BMP. #Transaminitis, likely secondary to recent Covid infection AST level 85 on admission, baseline at 13, on 09/18/2021, before Covid infec tion. ALT level 113 on admission baseline at 17, on 09/18/2021, before Covid infection Alkaline phosphatase level elevated at 143, baseline at 56 on 09/18/2021, before Covid infection LDH level 282 elevated, mildly elevated Patient denies having any abdominal symptoms at this time Continue to monitor daily CMP GGT ordered, elevated CT abdomen/pelvis showed cholelithiasis but no acute hepatic disease. CK level ordered. If CK level comes back normal, antibiotic regimen will be changed because azithromycin can cause hepatic toxicity. #Generalized weakness In the setting of pneumonia Patient reports that he is doing better Continue PT. #Constipation Administer Dulcolax as needed daily #GERD Patient takes esomeprazole at home, administer omeprazole daily #HTN Continue home medications, lisinopril and amlodipine with holding parameters. #Hyperlipidemia Hold home rosuvastatin at this time due to elevated transaminases. #Gout Continue home allopurinol VTE prophylaxis: Lovenox 40 mg daily Disposition: - Pending clinical improvement - Per PT, patient will need to be discharged to rehab; will c/w PT assessment VS,Fishbone, I+O VS, Fishbone, I+O Laboratory Tests 10/11/21 07:05 Vital Signs Date Time Temp Pulse Resp B/P (MAP) Pulse Ox O2 Delivery O2 Flow Rate FiO2 10/11/21 04:00 97.3 68 18 124/65 (84) 95 Room Air 10/10/21 05:46 1.0 I&O- Last 24 Hours up to 6 AM 10/11/21 06:00 Intake Total 1870 ml Output Total 1850 ml Balance 20 ml GME ATTESTATION GME ATTESTATION My faculty preceptor for this patient encounter was physically present during the encounter and was fully available. All aspects of the patient interview, examination, medical decision making process, and medical care plan development were reviewed and approved by the faculty preceptor. The faculty preceptor is aware and concurs with the plan as stated in the body of this note and will attest to such by his/her cosignature. ATTENDING NOTE I, Ana Oviedo, have independently examined this patient and performed my own physical exam, as well as reviewed the documentation and edited where necessary with the resident. For medical students we have performed the physical exam together and discussed medical decision making and I have verified the history. I have discussed in detail with the resident / student the findings and plan of treatment as documented by the resident / student and edited their note. I agree with their findings and treatment plan and have edited their documentation. I will continue to follow the patient during this hospital stay. Sam Gale DO Oct 11, 2021 08:33 ANA OVIEDO MD Oct 11, 2021 15:58
[2021-10-11 08:41] LABS: ALBUMIN 2.3 GM/DL (3.2-5.2); ALT/SGPT 251 U/L (12-78); BILIRUBIN,TOTAL 0.4 MG/DL (0.2-1.0); BLOOD UREA NITROGEN 26 MG/DL (7-18); C REACTIVE PROTEIN QUANTITATIV 2.64 MG/DL (0.00-0.30); CALCIUM LEVEL 8.9 MG/DL (8.8-10.2); CARBON DIOXIDE LEVEL 27 MEQ/L (21-32); CHLORIDE LEVEL 103 MEQ/L (98-107); CREATININE FOR GFR 0.78 MG/DL (0.70-1.30); FERRITIN 311 NG/ML (26-388); GLOMERULAR FILTRATION RATE > 60.0 (>35); GLUCOSE, FASTING 99 MG/DL (70-100); LDH LACTATE DEHYDROGENASE 185 U/L (87-241); MAGNESIUM LEVEL 2.3 MG/DL (1.8-2.4); POTASSIUM SERUM 4.4 MEQ/L (3.5-5.1); SODIUM LEVEL 138 MEQ/L (136-145); TOTAL PROTEIN 5.4 GM/DL (6.4-8.2)
[2021-10-11 08:42] LABS: INR 1.06; PROTHROMBIN TIME 14.2 SECONDS (12.7-14.5)
[2021-10-11 08:43] LABS: PARTIAL THROMBOPLASTIN TIME 29.8 SECONDS (25.9-37.0)
[2021-10-11 08:46] LABS: D-DIMER QUANT 499.81 ng/ml (<500)
[2021-10-11 09:29] VITALS: BP 122/64
[2021-10-11 09:30] VITALS: BP 117/58
[2021-10-11 09:31] VITALS: BP 113/59
[2021-10-11] MEDS: ENOXAPARIN 40MG/0.4ML SYRINGE (J1650 PER 10MG) SC SCH (09:33)
[2021-10-11] MEDS: OMEPRAZOLE 20 MG CAP PO SCH (09:34)
[2021-10-11] MEDS: ASPIRIN 81MG ENTERIC TABLET PO SCH (09:34)
[2021-10-11] MEDS: AZITHROMYCIN INJ 500 MG, VIAL MATE ADAPTER 1 EACH in NS 250 ML IV SCH (09:34)
[2021-10-11] MEDS: ASCORBIC ACID 500 MG TAB PO SCH (09:35)
[2021-10-11] MEDS: allopurinoL 100 MG TAB PO SCH (09:35)
[2021-10-11] MEDS: DOXYCYCLINE HYCLATE 100MG TABLET PO SCH ×2 (11:19→20:09)
[2021-10-11] MEDS: cefTRIAXone SOD 1 GM in D5W MINI-BAG PLUS 50 ML IV SCH (11:20)
[2021-10-11 14:00] VITALS: BP 119/58
[2021-10-11 20:00] VITALS: BP 112/55
[2021-10-12 04:00] VITALS: BP 125/63
[2021-10-12] MEDS ORDERED: MIRALAX *UNIT DOSE* 17GM PACKET PO PRN (08:20)
[2021-10-12] MEDS ORDERED: MOM 30ML SUSPENSION UDC PO PRN (08:20)
[2021-10-12] MEDS ORDERED: SENOKOT S TAB PO PRN (08:20)
[2021-10-12] MEDS: ASPIRIN 81MG ENTERIC TABLET PO SCH (08:42)
[2021-10-12] MEDS: ENOXAPARIN 40MG/0.4ML SYRINGE (J1650 PER 10MG) SC SCH (08:42)
[2021-10-12] MEDS: cefTRIAXone SOD 1 GM in D5W MINI-BAG PLUS 50 ML IV SCH (08:42)
[2021-10-12 08:43] VITALS: BP 125/63
[2021-10-12] MEDS: OMEPRAZOLE 20 MG CAP PO SCH (08:43)
[2021-10-12] MEDS: ASCORBIC ACID 500 MG TAB PO SCH (08:43)
[2021-10-12] MEDS: allopurinoL 100 MG TAB PO SCH (08:43)
[2021-10-12] MEDS: DOXYCYCLINE HYCLATE 100MG TABLET PO SCH ×2 (08:43→20:21)
[2021-10-12 09:09] LABS: BASO % 0.2 % (0.0-1.0); EOS # 0.1 10^3/uL (0.0-0.5); EOS % 0.9 % (0.0-3.0); HEMATOCRIT 42.9 % (42.0-52.0); HEMOGLOBIN 14.1 g/dl (13.5-17.5); LYMPH # 0.6 10^3/uL (1.5-5.0); LYMPH % 10.9 % (24.0-44.0); MEAN CORPUSCULAR HEMOGLOBIN 30.8 pg (27.0-33.0); MEAN CORPUSCULAR HGB CONC 32.9 g/dl (32.0-36.5); MEAN CORPUSCULAR VOLUME 93.7 fl (80.0-96.0); MONO # 0.8 10^3/uL (0.0-0.8); MONO % 15.2 % (2.0-8.0); NEUTROPHILS % 71.7 % (36.0-66.0); PLATELET COUNT, AUTOMATED 534 10^3/uL (150-450); RED BLOOD COUNT 4.58 10^6/uL (4.30-6.10); WHITE BLOOD COUNT 5.5 10^3/uL (4.0-10.0)
[2021-10-12 09:17] LABS: INR 1.02; PROTHROMBIN TIME 13.8 SECONDS (12.7-14.5)
[2021-10-12 09:18] LABS: PARTIAL THROMBOPLASTIN TIME 27.8 SECONDS (25.9-37.0)
[2021-10-12 09:36] LABS: ALBUMIN 2.9 GM/DL (3.2-5.2); ALT/SGPT 323 U/L (12-78); BILIRUBIN,DIRECT 0.2 MG/DL (0.0-0.2); BILIRUBIN,TOTAL 0.5 MG/DL (0.2-1.0); BLOOD UREA NITROGEN 22 MG/DL (7-18); CALCIUM LEVEL 9.1 MG/DL (8.8-10.2); CARBON DIOXIDE LEVEL 28 MEQ/L (21-32); CHLORIDE LEVEL 103 MEQ/L (98-107); CREATININE FOR GFR 0.86 MG/DL (0.70-1.30); FERRITIN 358 NG/ML (26-388); GLOMERULAR FILTRATION RATE > 60.0 (>35); GLUCOSE, FASTING 86 MG/DL (70-100); LDH LACTATE DEHYDROGENASE 222 U/L (87-241); MAGNESIUM LEVEL 2.2 MG/DL (1.8-2.4); NT-PRO BNP 74 PG/ML (<450); POTASSIUM SERUM 4.6 MEQ/L (3.5-5.1); SODIUM LEVEL 138 MEQ/L (136-145); TOTAL PROTEIN 6.2 GM/DL (6.4-8.2)
--- NOTE | 2021-10-12 10:54 | IPNPDOC ---
Text Note Date of Service The patient was seen on 10/12/21. NOTE Subjective: Patient is an 86-year-old male with a PMHx of HTN, CAD s/p stent, DLP, Gout, Arthritis, GERD who was diagnosed with COVID19 on 09/30 at the [facility]. He has received monoclonal antibodies on 10/03 in the [facility] infusion center. He had presented to the ER on 10/08 with complaints of worsening SOB and cough. In the ER patient had imaging via CXR that suggested COVID changes, but also a superimposed bacterial PNA. Patient was admitted to the hospitalist service for further evaluation, treatment. Patient was seen and examined at the bedside. Currently patient reports that he feels significantly better. He denies any significant shortness of breath. He saturating well on room air. Reports a cough with expectoration. Denies any nausea, vomiting, abdominal pain. Reports that he had a bowel movement yesterday. Denies any urinary discomfort. Objective: Vitals (See below) General: Patient is currently standing in front of his chair, about to eat breakfast, he appears comfortable, not in any acute distress, awake and alert, oriented 3 HEENT: normocephalic and atraumatic CVS: +S1S2 Lungs: RUL with diminished sounds, no rhonchi, rales or wheezing Abdomen: Soft, non-distended, non-tender Extremities: No evidence of edema, - Calf tenderness Imaging: CXR 10/08: "patchy opacity in the right upper lobe is well" Pneumonia CXR 10/09: No significant change CT abdomen / pelvis 10/10: 1. Lung base findings as described above consistent with pneumonia. 2. Hiatal hernia. 3. Cholelithiasis. 4. Bilateral renal cysts 5. Other findings as described above. Assessment and plan: Community acquired pneumonia in the setting or recent COVID19 infection - Currently, patient was that his breathing is doing significantly better - He still reports a productive cough - He is saturating well on room air - No leukocytosis / No lactic acidosis - Blood cultures 10/08: No growth at 72 hours - Imaging noted above - c/w Ceftriaxone / Doxycycline; s/p Azithromycin (Antibiotic day #5) - Will add Mucinex / Acapella COVID19 - Currently not hypoxic - s/p Dexamethasone - c/w Incentive spirometry s/p Hypoxia - Currently saturating well on room air Transaminitis - likely 2/2 medications (possibly 2/2 dexamethasone; less likely 2/2 medications from outpatient setting), less likely 2/2 auto-immune hepatitis, possibly 2/2 viral hepatitis - Clinically patient has not experience any nausea, vomiting, abdominal pain; no tenderness on physical exam - AST:ALT ratio of 1:3 - ALk phos normalized; GGT elevated - Imaging noted above - Discontinued medications that can induced transaminitis - Will check FELIX, Anti-mitochondrial Ab, Anti-Smooth muscle Ab, Anti-LKM ab - Will check ceruloplasmin, Alpha-1 antitrypsin - Will check hepatitis profile - Will continue to trend liver enzymes s/p Hyponatremia Generalized weakness - This morning patient appears to be encouraged to work with PT - He was seen ambulating in the room without any difficulty - c/w PT and OT - currently recommending rehab; however likely that he will progress on next evaluation s/p Constipation - Will add bowel regimen HTN - BP well controlled - c/w Lisinopril (with hold parameters) DLP - Rosuvastatin on hold (re: Transaminitis) Gout - c/w Allopurinol GERD - c/w Omeprazole DVT prophylaxis - c/w Lovenox; currently at 40 SQ daily Disposition: - Pending clinical improvement VS,Mary I+O VSMary I+O Laboratory Tests 10/12/21 08:27 Vital Signs Date Time Temp Pulse Resp B/P (MAP) Pulse Ox O2 Delivery O2 Flow Rate FiO2 10/12/21 08:43 53 125/63 10/12/21 04:00 97.3 17 94 Room Air 10/10/21 05:46 1.0 I&O- Last 24 Hours up to 6 AM 10/12/21 06:00 Intake Total 1625 ml Output Total 1875 ml Balance -250 ml YAZMIN OVIEDO MD Oct 12, 2021 10:54
[2021-10-12] MEDS: CEFDINIR 300 MG CAP (OMNICEF) PO SCH ×2 (11:06→20:21)
[2021-10-12] MEDS: guaiFENesin ER 600 MG TAB PO SCH ×2 (11:13→20:22)
[2021-10-12 11:49] LABS: THYROID STIMULATING HORMONE 0.864 uIU/ML (0.358-3.740)
[2021-10-12 14:00] VITALS: BP 98/52
[2021-10-12 20:00] VITALS: BP 106/56
[2021-10-12 21:00] VITALS: O2SAT 94
[2021-10-13 04:00] VITALS: BP 149/72
[2021-10-13 07:59] LABS: BASO % 0.5 % (0.0-1.0); EOS # 0.1 10^3/uL (0.0-0.5); EOS % 1.2 % (0.0-3.0); HEMOGLOBIN 13.5 g/dl (13.5-17.5); LYMPH # 0.7 10^3/uL (1.5-5.0); LYMPH % 11.7 % (24.0-44.0); MEAN CORPUSCULAR HEMOGLOBIN 30.5 pg (27.0-33.0); MEAN CORPUSCULAR HGB CONC 32.1 g/dl (32.0-36.5); MEAN CORPUSCULAR VOLUME 94.8 fl (80.0-96.0); MONO # 0.9 10^3/uL (0.0-0.8); MONO % 15.9 % (2.0-8.0); NEUTROPHILS # 3.9 10^3/uL (1.5-8.5); NEUTROPHILS % 69.3 % (36.0-66.0); PLATELET COUNT, AUTOMATED 443 10^3/uL (150-450); RED BLOOD COUNT 4.43 10^6/uL (4.30-6.10); WHITE BLOOD COUNT 5.7 10^3/uL (4.0-10.0)
[2021-10-13 08:31] LABS: ALBUMIN 2.4 GM/DL (3.2-5.2); ALT/SGPT 215 U/L (12-78); BILIRUBIN,TOTAL 0.5 MG/DL (0.2-1.0); BLOOD UREA NITROGEN 20 MG/DL (7-18); CALCIUM LEVEL 9.3 MG/DL (8.8-10.2); CARBON DIOXIDE LEVEL 27 MEQ/L (21-32); CHLORIDE LEVEL 103 MEQ/L (98-107); CREATININE FOR GFR 0.79 MG/DL (0.70-1.30); GLOMERULAR FILTRATION RATE > 60.0 (>35); GLUCOSE, FASTING 108 MG/DL (70-100); MAGNESIUM LEVEL 2.1 MG/DL (1.8-2.4); POTASSIUM SERUM 4.4 MEQ/L (3.5-5.1); SODIUM LEVEL 136 MEQ/L (136-145); TOTAL PROTEIN 6.1 GM/DL (6.4-8.2)
[2021-10-13] MEDS: ENOXAPARIN 40MG/0.4ML SYRINGE (J1650 PER 10MG) SC SCH (09:05)
[2021-10-13] MEDS: CEFDINIR 300 MG CAP (OMNICEF) PO SCH (09:05)
[2021-10-13] MEDS: OMEPRAZOLE 20 MG CAP PO SCH (09:05)
[2021-10-13] MEDS: ASCORBIC ACID 500 MG TAB PO SCH (09:06)
[2021-10-13] MEDS: DOXYCYCLINE HYCLATE 100MG TABLET PO SCH (09:06)
[2021-10-13] MEDS: ASPIRIN 81MG ENTERIC TABLET PO SCH (09:06)
[2021-10-13] MEDS: guaiFENesin ER 600 MG TAB PO SCH (09:07)
[2021-10-13 10:34] LABS: HEPATITIS B SURFACE ANTIGEN NEGATIVE (NEGATIVE)
[2021-10-13 10:52] LABS: HEPATITIS B CORE ANTIBODY IGM NEGATIVE (NEGATIVE); HEPATITIS C VIRUS ABY INDEX 0.1 INDEX (<0.8)
--- NOTE | 2021-10-13 11:21 | DS.PDOC ---
Discharge Summary General Date of Admission Oct 08, 2021 at 09:37 Date of Discharge 10/13/2021 Primary Care Physician: David Wheeler Attending Physician: JOSE A KRISHNA MD Discharge Summary PROCEDURES PERFORMED DURING STAY: None. ADMITTING DIAGNOSES: Community-acquired pneumonia Essential hypertension Coronary artery disease with stent placement, 10 years ago Hypercholesterolemia GERD History of edematous polyp of the colon Gout Arthritis History of night sweats DISCHARGE DIAGNOSES: Community-acquired pneumonia Essential hypertension Coronary artery disease with stent placement, 10 years ago Hypercholesterolemia GERD History of edematous polyp of the colon Gout Arthritis History of night sweats COMPLICATIONS/CHIEF COMPLAINT: Covid-19, Pneumonia. HISTORY OF PRESENT ILLNESS: Patient is an 86-year-old male who presents today due to shortness of breath for the past day. Patient reports that he was diagnosed with Covid approximately 13 days ago and received monoclonal antibodies on October 03, 2021. Patient reports that he had rigors last night. He denies any chest pain or heart palpitations. Patient reports shallow and quick breathing along with the shortness of breath. Patient denies requiring oxygen at home. While in the ED, patient was on 3 L oxygen oxygenating at 95%. Patient reports that he has lost his sense of taste and smell since his Covid infection. Patient reports that he has a decreased appetite for the past 3 days due to this loss of sense however he continues to eat. Patient reports that he has not had a bowel movement for the past 3 to 4 days. He denies any abdominal pain at this time. He reports that he has received the pneumonia shot, however declines a flu shot administration every year and reports that he did not want to receive the Covid vaccination and thus is unvaccinated. While in the ED, patient's EKG showed a second-degree AV block type II, with no symptoms during this episode, telemetry showed returned to sinus rhythm. Patient denied any heart palpitations or chest pain. A follow-up EKG was ordered while in the ED. HOSPITAL COURSE: Patient briefly required oxygen therapy during his stay. He required up to 3 L of oxygen during his stay, which was quickly titrated down to 1 L within the first night. Patient received 6 mg of dexamethasone for the first 3 days of hospitalization. Patient had incentive spirometry during hospitalization. Patient was initially started on IV ceftriaxone and azithromycin. Due to elevation of liver enzymes ratio of 1:3 AST:ALT, azithromycin was changed to doxycycline, on antibiotic day #4. Pt received 5 days of antibiotics total. Pt presented with generalized weakness on day 1 which spontaneously resolved over the course of the hospital course. Physical therapy worked with the patient from day 3 to discharge and cleared him to go home safely. Patient received his home medication of his rosuvastatin, allopurinol, omeprazole during his entire stay. Patient was constipated upon presentation, therefore patient was given Dulcolax suppository and oral doses after which constipation resolved. For patient's hypertension, patient received lisinopril which was held during his stay only briefly due to soft blood pressures which only required elevation of his legs. DVT prophylaxis: Lovenox 40 subcutaneous daily administered since admission. DISCHARGE MEDICATIONS: Please see below. ALLERGIES: Please see below. PHYSICAL EXAMINATION ON DISCHARGE: VITAL SIGNS: See below. GENERAL APPEARANCE: Patient appears younger than stated age, is sitting back in his gurney, in no acute distress oxygenating well on 3 L of oxygen, however appears uncomfortable from coughing. HEENT: Normocephalic atraumatic, EOMI, no rhinorrhea, oral mucous membranes moist. CARDIOVASCULAR: Regular rate and rhythm, no murmurs rubs or gallops. LUNGS: Bibasilar rales right greater than left appreciated on exam, good movement of air. ABDOMEN: Soft, nontender, nondistended. MUSCULOSKELETAL: Upper and lower extremity strength 4 out of 5 EXTREMITIES: No clubbing/edema appreciated, radial and pedal pulses +2. NEUROLOGICAL: No focal motor deficits, cranial nerves II to XII intact. PSYCHIATRIC: Affect full and open, alert and oriented x4. LABORATORY DATA: Please see below. IMAGING: Chest x-ray, 10/08/2021ilateral patchy interstitial and airspace opacities have developed since the last exam. There is a patchy opacity in the right upper lobe is well. The pleural angles are sharp. The cardiomediastinal silhouette is unchanged. The osseous structures are unchanged. Chest x-ray, 10/09/2021no significant change. Abdomen/pelvis CT, 10/10/2021 Lung base findings as described in radiology note consistent with pneumonia. Hiatal hernia. Cholelithiasis. Bilateral renal cysts. Other findings as described in radiology note. PROGNOSIS: Fair ACTIVITY: As tolerated. DIET: 2 gram sodium diet. DISCHARGE PLAN: Please followup with PCP upon discharge within one week. Please do not take your home medication: rosuvastatin at this time due to elevated liver enzymes until advised by PCP. DISPOSITION: Discharge home. DISCHARGE CONDITION: Stable. TIME SPENT ON DISCHARGE: 38 minutes. Vital Signs/I&Os Vital Signs Date Time Temp Pulse Resp B/P (MAP) Pulse Ox O2 Delivery O2 Flow Rate FiO2 10/13/21 04:00 97.9 69 18 149/72 (97) 96 Room Air 10/10/21 05:46 1.0 I&O- Last 24 Hours up to 6 AM 10/13/21 06:00 Intake Total 1750 ml Output Total 2750 ml Balance -1000 ml Laboratory Data Labs 24H Laboratory Tests 2 10/12/21 11:08: 10/13/21 07:23: Immature Granulocyte % (Auto) 1.4, Neutrophils (%) (Auto) 69.3H, Lymphocytes (%) (Auto) 11.7L, Monocytes (%) (Auto) 15.9H, Eosinophils (%) (Auto) 1.2, Basophils (%) (Auto) 0.5, Neutrophils # (Auto) 3.9, Lymphocytes # (Auto) 0.7L, Monocytes # (Auto) 0.9H, Eosinophils # (Auto) 0.1, Basophils # (Auto) 0.0, Nucleated Red Blood Cells % (auto) 0.0, Anion Gap 6L, Glomerular Filtration Rate > 60.0, Calcium Level 9.3, Magnesium Level 2.1, Total Bilirubin 0.5, Aspartate Amino Transf (AST/SGOT) 40H, Alanine Aminotransferase (ALT/SGPT) 215H, Alkaline Phosphatase 88, Total Protein 6.1L, Albumin 2.4L, Albumin/Globulin Ratio 0.6 CBC/BMP Laboratory Tests 10/13/21 07:23 Microbiology Microbiology 10/08/21 Blood Culture - Final, Complete NO GROWTH AFTER 5 DAYS 10/08/21 Blood Culture - Final, Complete NO GROWTH AFTER 5 DAYS Discharge Medications Scheduled Allopurinol (Allopurinol) 100 Mg Tablet, 100 MG PO DAILY, (Reported) Amlodipine Besylate (Amlodipine Besylate) 2.5 Mg Tablet, 2.5 MG PO DAILY, (Reported) Ascorbic Acid (Vitamin C) 500 Mg Tablet, 1 TAB PO DAILY, (Reported) Aspirin (Ecotrin) 81 Mg Tablet.dr, 81 MG PO DAILY, (Reported) Esomeprazole Magnesium (Esomeprazole Magnesium Dr) 20 Mg Capsule.dr, 20 MG PO BID, (Reported) Lisinopril (Lisinopril) 20 Mg Tab, 20 MG PO DAILY, (Reported) Rosuvastatin Calcium (Rosuvastatin Calcium) 5 Mg Tab, 5 MG PO DAILY, (Reported) Turmeric Root Extract (Turmeric) 500 Mg Capsule, 500 MG PO DAILY, (Reported) Allergies Coded Allergies: No Known Allergies (Unverified , 10/08/21) GME ATTESTATION GME ATTESTATION My faculty preceptor for this patient encounter was physically present during the encounter and was fully available. All aspects of the patient interview, examination, medical decision making process, and medical care plan development were reviewed and approved by the faculty preceptor. The faculty preceptor is aware and concurs with the plan as stated in the body of this note and will attest to such by his/her cosignature. Sam Gale DO Oct 13, 2021 11:21
[2021-10-14 17:10] LABS: ALPHA 1 ANTITRYPSIN 179 mg/dL (101-187); ANTI-MITOCHONDRIAL ANTIBODY <20.0 Units (0.0-20.0); ANTI-SMOOTH MUSCLE ANTIBODY 8 Units (0-19); ANTINUCLEAR ANTIBODIES DIRECT Negative (Negative); CERULOPLASMIN 25.3 mg/dL (16.0-31.0); LIVER-KIDNEY MICROSOMAL ABY <20.1 Units (0.0-20.0)
== END 2021-10-13 16:04 | disposition home health service (06) | DRG 194 ==
LOC: M ED 06:33 → M ED INP 09:37 → M 4MAIN 17:30
PROVIDERS: ADMIT Internal Medicine; ATTEND Internal Medicine
DX: J18.9 Pneumonia, unspecified organism (principal); E87.1 Hypo-osmolality and hyponatremia; I44.1 Atrioventricular block, second degree; Z66 Do not resuscitate; I10 Essential (primary) hypertension; I25.10 Atherosclerotic heart disease of native coronary artery without angina pectoris; Z95.5 Presence of coronary angioplasty implant and graft; E78.00 Pure hypercholesterolemia, unspecified; K21.9 Gastro-esophageal reflux disease without esophagitis; M10.9 Gout, unspecified; M06.9 Rheumatoid arthritis, unspecified; Z98.41 Cataract extraction status, right eye; Z98.42 Cataract extraction status, left eye; M43.27 Fusion of spine, lumbosacral region; Z87.891 Personal history of nicotine dependence; R09.02 Hypoxemia; R74.01 Elevation of levels of liver transaminase levels; K59.00 Constipation, unspecified; E78.5 Hyperlipidemia, unspecified; Z79.82 Long term (current) use of aspirin; Z79.899 Other long term (current) drug therapy; Z86.16 Personal history of COVID-19

== ENCOUNTER → 2021-10-29 | Outpatient (CLI) | payer MEDICARE ==
[~2021-10-29] MED LIST changes: +ALLO100T PO; +ECOT81TA5 PO; +ESOM20CA25 PO; +RA T500C2 PO; +VITA-158 PO
--- NOTE | 2021-10-29 14:15 | REP ---
INDICATION: OTHER SPECIFIED ABNORMAL FINDINGS OF BLOOD CHEMISTRY. COMPARISON: Multiple the latest 10/09/2020 TECHNIQUE: PA and lateral FINDINGS: The cardiomediastinal silhouette is unchanged. There is mild cardiomegaly status quo. There is a large hiatal hernia status quo. There are persistent bilateral scattered lung field opacities. These do not appear to be significantly changed when the technical differences between the examinations are taken into consideration. IMPRESSION: Persistent abnormalities as described above. Follow-up is recommended. <Electronically signed by Amado Nolan > 10/29/21 [id number]
[2021-10-29 15:53] LABS: ALBUMIN 3.4 GM/DL (3.2-5.2); ALT/SGPT 30 U/L (12-78); BILIRUBIN,TOTAL 0.3 MG/DL (0.2-1.0); BLOOD UREA NITROGEN 24 MG/DL (7-18); CALCIUM LEVEL 9.2 MG/DL (8.8-10.2); CARBON DIOXIDE LEVEL 29 MEQ/L (21-32); CHLORIDE LEVEL 104 MEQ/L (98-107); CREATININE FOR GFR 0.95 MG/DL (0.70-1.30); GLOMERULAR FILTRATION RATE > 60.0 (>35); GLUCOSE, FASTING 150 MG/DL (70-100); POTASSIUM SERUM 4.3 MEQ/L (3.5-5.1); SODIUM LEVEL 139 MEQ/L (136-145); TOTAL PROTEIN 6.3 GM/DL (6.4-8.2)
== END ==
LOC: M PLAIMG 13:50
PROVIDERS: ATTEND Internal Medicine
DX: I51.7 Cardiomegaly (principal); K44.9 Diaphragmatic hernia without obstruction or gangrene; R79.89 Other specified abnormal findings of blood chemistry; Z87.01 Personal history of pneumonia (recurrent)

== ENCOUNTER → 2021-12-01 | Outpatient (CLI) | payer MEDICARE | LOC: M PLAIMG 10:39 | PROVIDERS: ATTEND Internal Medicine | DX: Z87.01 Personal history of pneumonia (recurrent) (principal); J84.9 Interstitial pulmonary disease, unspecified; R91.8 Other nonspecific abnormal finding of lung field ==

== ENCOUNTER → 2022-04-24 | Outpatient (CLI) | payer MEDICARE ==
[2022-04-24 10:12] LABS: BASO # 0.1 10^3/uL (0.0-0.2); BASO % 1.2 % (0.0-1.0); EOS # 0.1 10^3/uL (0.0-0.5); EOS % 2.2 % (0.0-3.0); HEMATOCRIT 44.3 % (42.0-52.0); HEMOGLOBIN 14.4 g/dl (13.5-17.5); LYMPH % 25.1 % (24.0-44.0); MEAN CORPUSCULAR HGB CONC 32.5 g/dl (32.0-36.5); MEAN CORPUSCULAR VOLUME 98.4 fl (80.0-96.0); MONO # 0.5 10^3/uL (0.0-0.8); MONO % 11.4 % (2.0-8.0); NEUTROPHILS # 2.4 10^3/uL (1.5-8.5); NEUTROPHILS % 59.9 % (36.0-66.0); PLATELET COUNT, AUTOMATED 235 10^3/uL (150-450)
[2022-04-24 10:29] LABS: HEMOGLOBIN A1c 6.5 %
[2022-04-24 10:54] LABS: ALBUMIN 3.6 GM/DL (3.2-5.2); ALT/SGPT 13 U/L (12-78); BILIRUBIN,TOTAL 0.6 MG/DL (0.2-1.0); BLOOD UREA NITROGEN 21 MG/DL (7-18); CARBON DIOXIDE LEVEL 31 MEQ/L (21-32); CHLORIDE LEVEL 109 MEQ/L (98-107); CHOLESTEROL LEVEL 127 MG/DL (<200); CHOLESTEROL RISK RATIO 2.822 (<5); CREATININE FOR GFR 1.02 MG/DL (0.70-1.30); GLOMERULAR FILTRATION RATE > 60.0 (>35); GLUCOSE, FASTING 128 MG/DL (70-100); HDL CHOLESTEROL 45 MG/DL (>40); LDL CHOLESTEROL 67 MG/DL (<100); MAGNESIUM LEVEL 2.2 MG/DL (1.8-2.4); NON-HDL-C 82 MG/DL; POTASSIUM SERUM 4.6 MEQ/L (3.5-5.1); SODIUM LEVEL 145 MEQ/L (136-145); TOTAL PROTEIN 6.2 GM/DL (6.4-8.2); TRIGLYCERIDES LEVEL 73 MG/DL (<150)
== END ==
LOC: M PLALAB 08:34 → M LAB 08:34
PROVIDERS: ATTEND Internal Medicine
DX: I10 Essential (primary) hypertension (principal); E11.9 Type 2 diabetes mellitus without complications; E78.00 Pure hypercholesterolemia, unspecified; Z86.010 Personal history of colon polyps

== ENCOUNTER → 2022-04-29 | Outpatient (CLI) | payer MEDICARE | LOC: M PLAIMG 13:55 | PROVIDERS: ATTEND Internal Medicine | DX: R61 Generalized hyperhidrosis (principal); K44.9 Diaphragmatic hernia without obstruction or gangrene; M85.88 Other specified disorders of bone density and structure, other site ==

== ENCOUNTER 2022-05-22 07:03 | Emergency (ER) | payer MEDICARE ==
[~2022-05-22] VITALS: Ht 180.3 cm; Wt 88.9 kg
[2022-05-22] MEDS ORDERED: CHLO125TA (07:17)
[2022-05-22] MEDS ORDERED: ROSU5TAB5 (07:17)
[2022-05-22] MEDS ORDERED: ALLO300T2 (07:17)
[2022-05-22] MEDS ORDERED: ESOM40CA35 (07:17)
[2022-05-22] MEDS ORDERED: NS 1,000 ML IV ONE (07:45)
[2022-05-22] MEDS ORDERED: DICYCLOMINE 10 MG CAP PO ONE (07:45)
[2022-05-22 08:26] LABS: BASO % 0.4 % (0.0-1.0); EOS % 0.2 % (0.0-3.0); HEMATOCRIT 42.9 % (42.0-52.0); HEMOGLOBIN 14.4 g/dl (13.5-17.5); LYMPH # 0.5 10^3/uL (1.5-5.0); LYMPH % 6.2 % (24.0-44.0); MEAN CORPUSCULAR HEMOGLOBIN 32.2 pg (27.0-33.0); MEAN CORPUSCULAR HGB CONC 33.6 g/dl (32.0-36.5); NEUTROPHILS # 6.5 10^3/uL (1.5-8.5); PLATELET COUNT, AUTOMATED 240 10^3/uL (150-450); RED BLOOD COUNT 4.47 10^6/uL (4.30-6.10); WHITE BLOOD COUNT 8.1 10^3/uL (4.0-10.0)
[2022-05-22] MEDS ORDERED: ISOVUE-370 76% 100ML VIAL As Ordered ONE (08:27)
[2022-05-22 08:53] LABS: ALBUMIN 3.6 GM/DL (3.2-5.2); BILIRUBIN,DIRECT 0.2 MG/DL (0.0-0.2); BILIRUBIN,TOTAL 0.6 MG/DL (0.2-1.0); TOTAL PROTEIN 6.3 GM/DL (6.4-8.2)
[2022-05-22 10:25] VITALS: BP 124/62
[2022-05-22] MEDS ORDERED: DICY10CA13 PO (10:44)
== END 2022-05-22 11:15 | disposition home or self-care (01) ==
LOC: M ED 07:03
DX: R19.7 Diarrhea, unspecified (principal); K51.00 Ulcerative (chronic) pancolitis without complications; I25.2 Old myocardial infarction; I10 Essential (primary) hypertension; E78.5 Hyperlipidemia, unspecified; K21.9 Gastro-esophageal reflux disease without esophagitis; Z86.16 Personal history of COVID-19; Z79.82 Long term (current) use of aspirin; Z79.899 Other long term (current) drug therapy
CPT/HCPCS: 74177; 80047; 80076; 83690; 85025; 96360; 96361; 99284; Q9967

== ENCOUNTER → 2022-05-26 | Outpatient (REF) | payer MEDICARE ==
[~2022-05-26] MED LIST changes: +ALLO300T2; +CHLO125TA; +DICY10CA13 PO; +ESOM40CA35; +ROSU5TAB5
== END ==
LOC: M SFHCPLAZ 13:08
PROVIDERS: ATTEND Physician Assistant
DX: R19.7 Diarrhea, unspecified (principal)

== ENCOUNTER → 2022-05-26 | Outpatient (CLI) | payer MEDICARE ==
[2022-05-26 15:40] LABS: BASO % 0.7 % (0.0-1.0); EOS # 0.1 10^3/uL (0.0-0.5); EOS % 1.6 % (0.0-3.0); HEMATOCRIT 43.8 % (42.0-52.0); HEMOGLOBIN 14.7 g/dl (13.5-17.5); LYMPH # 0.9 10^3/uL (1.5-5.0); LYMPH % 19.4 % (24.0-44.0); MEAN CORPUSCULAR HEMOGLOBIN 32.2 pg (27.0-33.0); MEAN CORPUSCULAR HGB CONC 33.6 g/dl (32.0-36.5); MEAN CORPUSCULAR VOLUME 96.1 fl (80.0-96.0); MONO # 0.5 10^3/uL (0.0-0.8); MONO % 11.4 % (2.0-8.0); NEUTROPHILS # 2.9 10^3/uL (1.5-8.5); NEUTROPHILS % 66.7 % (36.0-66.0); PLATELET COUNT, AUTOMATED 281 10^3/uL (150-450); RED BLOOD COUNT 4.56 10^6/uL (4.30-6.10); WHITE BLOOD COUNT 4.4 10^3/uL (4.0-10.0)
[2022-05-26 16:29] LABS: ALBUMIN 3.8 GM/DL (3.2-5.2); ALT/SGPT 16 U/L (12-78); BILIRUBIN,TOTAL 0.5 MG/DL (0.2-1.0); BLOOD UREA NITROGEN 17 MG/DL (7-18); C REACTIVE PROTEIN QUANTITATIV 0.42 MG/DL (0.00-0.30); CALCIUM LEVEL 9.5 MG/DL (8.8-10.2); CARBON DIOXIDE LEVEL 29 MEQ/L (21-32); CHLORIDE LEVEL 107 MEQ/L (98-107); CREATININE FOR GFR 0.97 MG/DL (0.70-1.30); GLOMERULAR FILTRATION RATE > 60.0 (>35); GLUCOSE, FASTING 149 MG/DL (70-100); LIPASE 114 U/L (73-393); POTASSIUM SERUM 3.5 MEQ/L (3.5-5.1); SODIUM LEVEL 142 MEQ/L (136-145); TOTAL PROTEIN 6.4 GM/DL (6.4-8.2)
[2022-05-26 18:39] LABS: ERYTHROCYTE SEDIMENTATION RATE 8 mm/hr (0-20)
== END ==
LOC: M PLALAB 14:31
PROVIDERS: ATTEND Physician Assistant
DX: R19.7 Diarrhea, unspecified (principal); K51.00 Ulcerative (chronic) pancolitis without complications

== ENCOUNTER → 2022-06-12 | Outpatient (REF) | payer MEDICARE | LOC: M SFHCPLAZ 17:12 | PROVIDERS: ATTEND Physician Assistant | DX: R19.7 Diarrhea, unspecified (principal) ==

== ENCOUNTER → 2022-06-13 | Outpatient (REF) | payer MEDICARE | LOC: M LAB REF 11:45 | PROVIDERS: ATTEND Physician Assistant | DX: R09.89 Other specified symptoms and signs involving the circulatory and respiratory systems (principal) ==

== ENCOUNTER → 2022-06-23 | Outpatient (REF) | payer MEDICARE | LOC: M SFHCPLAZ 15:05 | PROVIDERS: ATTEND Internal Medicine Hematology | DX: K51.00 Ulcerative (chronic) pancolitis without complications (principal) ==

== ENCOUNTER → 2022-10-21 | Outpatient (CLI) | payer MEDICARE ==
[2022-10-21 10:22] LABS: BASO % 0.8 % (0.0-1.0); EOS # 0.1 10^3/uL (0.0-0.5); EOS % 3.3 % (0.0-3.0); HEMATOCRIT 45.9 % (42.0-52.0); HEMOGLOBIN 14.7 g/dl (13.5-17.5); LYMPH # 0.9 10^3/uL (1.5-5.0); LYMPH % 23.8 % (24.0-44.0); MEAN CORPUSCULAR HEMOGLOBIN 31.3 pg (27.0-33.0); MEAN CORPUSCULAR VOLUME 97.9 fl (80.0-96.0); MONO # 0.4 10^3/uL (0.0-0.8); MONO % 10.6 % (2.0-8.0); NEUTROPHILS # 2.4 10^3/uL (1.5-8.5); PLATELET COUNT, AUTOMATED 211 10^3/uL (150-450); RED BLOOD COUNT 4.69 10^6/uL (4.30-6.10)
[2022-10-21 10:49] LABS: APPEARANCE, URINE MANUAL CLEAR (CLEAR); COLOR, URINE MANUAL YELLOW (YELLOW)
[2022-10-21 10:50] LABS: BILIRUBIN, URINE MANUAL NEGATIVE (NEGATIVE); BLOOD URINE MANUAL NEGATIVE (NEGATIVE); GLUCOSE, URINE (UA) MANUAL NEGATIVE (NEGATIVE); KETONE, URINE MANUAL NEGATIVE (NEGATIVE); LEUKOCYTE ESTERASE, URINE MAN POSITIVE (NEGATIVE); NITRITE, URINE MANUAL NEGATIVE (NEGATIVE); PROTEIN, URINE MANUAL NEGATIVE (NEGATIVE); UROBILINOGEN, URINE MANUAL NORMAL (NORMAL)
[2022-10-21 10:57] LABS: HEMOGLOBIN A1c 6.1 % (4.0-6.0)
[2022-10-21 10:59] LABS: CREATININE, URINE 134.5 MG/DL; MALB URINE SIEMENS < 3.0 MG/DL; MAU/CREAT RATIO 2.2 MCG/MG (0.0-30.0)
[2022-10-21 11:08] LABS: BACTERIA, URINE SMALL AMOUNT; GRANULAR CAST, URINE 0-1 /lpf; RBC, URINE NONE SEEN /hpf (0-3); SQUAMOUS EPITHELIAL CELL URINE SMALL AMOUNT /hpf (SMALL AMT); WBC, URINE 20-30 /hpf (0-3)
[2022-10-21 11:09] LABS: MUCUS, URINE MOD AMOUNT (NEGATIVE)
[2022-10-21 11:21] LABS: ALBUMIN 3.8 G/DL (3.2-5.2); ALKALINE PHOSPHATASE 49 U/L (46-116); ALT/SGPT 12 U/L (7.0-40); AST/SGOT 19 U/L (<34); BILIRUBIN,TOTAL 0.6 MG/DL (0.3-1.2); BLOOD UREA NITROGEN 18 MG/DL (9-23); CALCIUM LEVEL 9.4 MG/DL (8.3-10.6); CARBON DIOXIDE LEVEL 31 MMOL/L (20-31); CHLORIDE LEVEL 105 MMOL/L (98-107); CHOLESTEROL LEVEL 132 MG/DL (<200); CHOLESTEROL RISK RATIO 3.18 (<5); CREATININE FOR GFR 0.98 MG/DL (0.70-1.30); GLOMERULAR FILTRATION RATE > 60.0 (>35); GLUCOSE, FASTING 121 MG/DL (74-106); HDL CHOLESTEROL 41.4 MG/DL (>40); LDL CHOLESTEROL 69.4 MG/DL (<100); NON-HDL-C 91 MG/DL; SODIUM LEVEL 142 MMOL/L (136-145); TOTAL PROTEIN 6.1 G/DL (5.7-8.2); TRIGLYCERIDES LEVEL 106 MG/DL (<150)
== END ==
LOC: M PLALAB 08:24
PROVIDERS: ATTEND Internal Medicine Hematology
DX: E11.9 Type 2 diabetes mellitus without complications (principal); E78.00 Pure hypercholesterolemia, unspecified

== ENCOUNTER → 2022-11-30 | Outpatient (CLI) | payer MEDICARE ==
[2022-11-30 13:39] LABS: APPEARANCE, URINE MANUAL CLEAR (CLEAR); BILIRUBIN, URINE MANUAL NEGATIVE (NEGATIVE); BLOOD URINE MANUAL NEGATIVE (NEGATIVE); COLOR, URINE MANUAL YELLOW (YELLOW); GLUCOSE, URINE (UA) MANUAL NEGATIVE (NEGATIVE); KETONE, URINE MANUAL NEGATIVE (NEGATIVE); LEUKOCYTE ESTERASE, URINE MAN NEGATIVE (NEGATIVE); NITRITE, URINE MANUAL NEGATIVE (NEGATIVE); PH,URINE MAN 5.5 UNITS (5.0 - 7.0); PROTEIN, URINE MANUAL NEGATIVE (NEGATIVE); SPECIFIC GRAVITY,URINE MANUAL 1.015 (1.002-1.035); UROBILINOGEN, URINE MANUAL NORMAL (NORMAL)
== END ==
LOC: M PLALAB 10:40
PROVIDERS: ATTEND Internal Medicine Hematology
DX: R82.90 Unspecified abnormal findings in urine (principal); E11.9 Type 2 diabetes mellitus without complications
CPT/HCPCS: 36415; 81002; 87086; G0103

== ENCOUNTER → 2023-02-01 | Outpatient (REF) | payer MEDICARE ==
[2023-02-01 14:08] LABS: APPEARANCE, URINE HAZY (CLEAR); BACTERIA, URINE AUTO NEGATIVE (NEGATIVE); BILIRUBIN, URINE AUTO 1+ (NEGATIVE); BLOOD, URINE BLOOD NEGATIVE (NEGATIVE); COLOR, URINE YELLOW (YELLOW); GLUCOSE, URINE (UA) AUTO NEGATIVE (NEGATIVE); KETONE, URINE AUTO TRACE mg/dL (NEGATIVE); LEUKOCYTE ESTERASE, URINE AUTO 1+ (NEGATIVE); MUCUS, URINE SMALL (NEGATIVE); NITRITE, URINE AUTO NEGATIVE (NEGATIVE); PROTEIN, URINE AUTO 1+ mg/dL (NEGATIVE); RBC, URINE AUTO 1 /HPF (0-3); SPECIFIC GRAVITY URINE AUTO 1.026 (1.002-1.035); SQUAMOUS EPITHELIAL CELL UR AU 0 /HPF (0-6); UROBILINOGEN, URINE AUTO 0.2 mg/dL (0.0-2.0); WBC, URINE AUTO 5 /HPF (0-3)
== END ==
LOC: M SFHCPLAZ 12:41
PROVIDERS: ATTEND Internal Medicine Hematology
DX: R30.0 Dysuria (principal)

== ENCOUNTER → 2023-06-22 | Outpatient (CLI) | payer MEDICARE ==
[~2023-06-22] MED LIST changes: +DICY-61 PO; -DICY10CA13 PO
== END ==
LOC: M PLAIMG 15:42
PROVIDERS: ATTEND Internal Medicine Hematology
DX: M96.1 Postlaminectomy syndrome, not elsewhere classified (principal); M51.34 Other intervertebral disc degeneration, thoracic region

== ENCOUNTER → 2023-07-01 | Outpatient (REF) | payer MEDICARE ==
[2023-07-01 15:58] LABS: APPEARANCE, URINE CLEAR (CLEAR); BACTERIA, URINE AUTO NEGATIVE (NEGATIVE); BILIRUBIN, URINE AUTO NEGATIVE (NEGATIVE); BLOOD, URINE BLOOD NEGATIVE (NEGATIVE); COLOR, URINE STRAW (YELLOW); GLUCOSE, URINE (UA) AUTO NEGATIVE (NEGATIVE); KETONE, URINE AUTO NEGATIVE (NEGATIVE); LEUKOCYTE ESTERASE, URINE AUTO NEGATIVE (NEGATIVE); NITRITE, URINE AUTO NEGATIVE (NEGATIVE); PROTEIN, URINE AUTO NEGATIVE (NEGATIVE); RBC, URINE AUTO 0 /HPF (0-3); SPECIFIC GRAVITY URINE AUTO 1.005 (1.002-1.035); SQUAMOUS EPITHELIAL CELL UR AU 0 /HPF (0-6); UROBILINOGEN, URINE AUTO 0.2 mg/dL (0.0-2.0); WBC, URINE AUTO 0 /HPF (0-3)
== END ==
LOC: M SFHCPLAZ 15:28
PROVIDERS: ATTEND Internal Medicine Hematology
DX: R30.0 Dysuria (principal)

== ENCOUNTER → 2023-07-13 | Outpatient (CLI) | payer MEDICARE ==
[2023-07-13 14:24] LABS: HEMATOCRIT 49.1 % (42.0-52.0); HEMOGLOBIN 15.7 g/dl (13.5-17.5); MEAN CORPUSCULAR HEMOGLOBIN 31.6 pg (27.0-33.0); MEAN CORPUSCULAR VOLUME 98.8 fl (80.0-96.0); PLATELET COUNT, AUTOMATED 301 10^3/uL (150-450); RED BLOOD COUNT 4.97 10^6/uL (4.30-6.10); WHITE BLOOD COUNT 5.5 10^3/uL (4.0-10.0)
[2023-07-13 14:52] LABS: CREATININE, URINE 108.3 MG/DL; MALB URINE SIEMENS < 3.0 MG/L; MAU/CREAT RATIO 2.7 MCG/MG (0.0-30.0)
[2023-07-13 14:57] LABS: C REACTIVE PROTEIN QUANTITATIV < 0.40 MG/DL (<1.0)
[2023-07-13 15:02] LABS: ALKALINE PHOSPHATASE 52 U/L (46-116); ALT/SGPT 19 U/L (7.0-40); AST/SGOT 9 U/L (<34); BILIRUBIN,TOTAL 0.6 MG/DL (0.3-1.2); BLOOD UREA NITROGEN 22 MG/DL (9-23); CALCIUM LEVEL 9.2 MG/DL (8.3-10.6); CARBON DIOXIDE LEVEL 31 MMOL/L (20-31); CHLORIDE LEVEL 102 MMOL/L (98-107); CHOLESTEROL LEVEL 142 MG/DL (<200); CHOLESTEROL RISK RATIO 2.57 (<5); CREATININE FOR GFR 1.18 MG/DL (0.70-1.30); GLOMERULAR FILTRATION RATE > 60.0 (>35); GLUCOSE, FASTING 131 MG/DL (74-106); HDL CHOLESTEROL 55.1 MG/DL (>40); LDL CHOLESTEROL 69.3 MG/DL (<100); NON-HDL-C 86.9 MG/DL; POTASSIUM SERUM 4.4 MMOL/L (3.5-5.1); SODIUM LEVEL 141 MMOL/L (136-145); THYROID STIMULATING HORMONE 1.591 uIU/ML (0.55-4.78); TOTAL 25(OH) VITAMIN D 34.1 NG/ML (20.0-100.0); TOTAL PROTEIN 6.4 G/DL (5.7-8.2); TRIGLYCERIDES LEVEL 88 MG/DL (<150); VITAMIN B12 LEVEL 265 PG/ML (211-911)
[2023-07-13 15:17] LABS: HEMOGLOBIN A1c 6.1 % (4.0-6.0)
== END ==
LOC: M PLALAB 09:49
PROVIDERS: ATTEND Internal Medicine Hematology
DX: R73.01 Impaired fasting glucose (principal); M54.42 Lumbago with sciatica, left side; Z79.899 Other long term (current) drug therapy

== ENCOUNTER → 2023-08-20 | Outpatient (CLI) | payer MEDICARE | LOC: M WHC 07:52 | PROVIDERS: ATTEND Physician Assistant | DX: R39.9 Unspecified symptoms and signs involving the genitourinary system (principal) ==

== ENCOUNTER → 2024-01-10 | Outpatient (CLI) | payer MEDICARE ==
[2024-01-10 10:27] LABS: HEMATOCRIT 45.2 % (42.0-52.0); HEMOGLOBIN 14.9 g/dl (13.5-17.5); MEAN CORPUSCULAR HEMOGLOBIN 32.3 pg (27.0-33.0); PLATELET COUNT, AUTOMATED 233 10^3/uL (150-450); RED BLOOD COUNT 4.61 10^6/uL (4.30-6.10); WHITE BLOOD COUNT 4.4 10^3/uL (4.0-10.0)
[2024-01-10 10:53] LABS: HEMOGLOBIN A1c 6.3 % (4.0-6.0)
[2024-01-10 10:59] LABS: CREATININE, URINE 163.2 MG/DL
[2024-01-10 11:02] LABS: C REACTIVE PROTEIN QUANTITATIV < 0.40 MG/DL (<1.0)
[2024-01-10 11:04] LABS: ALKALINE PHOSPHATASE 54 U/L (46-116); ALT/SGPT 11 U/L (7.0-40); AST/SGOT 9 U/L (<34); BILIRUBIN,TOTAL 0.5 MG/DL (0.3-1.2); BLOOD UREA NITROGEN 29 MG/DL (9-23); CALCIUM LEVEL 8.8 MG/DL (8.3-10.6); CARBON DIOXIDE LEVEL 30 MMOL/L (20-31); CHLORIDE LEVEL 107 MMOL/L (98-107); CHOLESTEROL LEVEL 128 MG/DL (<200); CREATININE FOR GFR 1.11 MG/DL (0.70-1.30); GLOMERULAR FILTRATION RATE > 60.0 (>35); GLUCOSE, FASTING 136 MG/DL (74-106); HDL CHOLESTEROL 51.2 MG/DL (>40); LDL CHOLESTEROL 67.8 MG/DL (<100); NON-HDL-C 76.8 MG/DL; POTASSIUM SERUM 4.3 MMOL/L (3.5-5.1); SODIUM LEVEL 141 MMOL/L (136-145); TOTAL PROTEIN 6.2 G/DL (5.7-8.2); TRIGLYCERIDES LEVEL 45 MG/DL (<150)
[2024-01-10 11:05] LABS: FREE T4 1.12 NG/DL (0.89-1.76)
[2024-01-10 11:06] LABS: THYROID STIMULATING HORMONE 1.205 uIU/ML (0.55-4.78); TOTAL 25(OH) VITAMIN D 20.9 NG/ML (20.0-100.0); VITAMIN B12 LEVEL 668 PG/ML (211-911)
== END ==
LOC: M PLALAB 08:18
PROVIDERS: ATTEND Internal Medicine Hematology
DX: I10 Essential (primary) hypertension (principal); Z79.899 Other long term (current) drug therapy

== ENCOUNTER → 2024-07-05 | Outpatient (CLI) | payer MEDICARE ==
[~2024-07-05] MED LIST changes: +ESOM1CAP20 PO; -ESOM1CAP5 PO; +ROSU5TAB40; +ROSU5TAB40 PO; -ROSU5TAB5; -ROSU5TAB5 PO
[2024-07-05 12:15] LABS: HEMATOCRIT 43.6 % (42.0-52.0); HEMOGLOBIN 14.5 g/dl (13.5-17.5); MEAN CORPUSCULAR HEMOGLOBIN 32.5 pg (27.0-33.0); MEAN CORPUSCULAR HGB CONC 33.3 g/dl (32.0-36.5); MEAN CORPUSCULAR VOLUME 97.8 fl (80.0-96.0); PLATELET COUNT, AUTOMATED 249 10^3/uL (150-450); RED BLOOD COUNT 4.46 10^6/uL (4.30-6.10); WHITE BLOOD COUNT 3.5 10^3/uL (4.0-10.0)
[2024-07-05 12:41] LABS: C REACTIVE PROTEIN QUANTITATIV < 0.40 MG/DL (<1.0)
[2024-07-05 12:43] LABS: ALBUMIN 3.9 G/DL (3.2-5.2); ALKALINE PHOSPHATASE 46 U/L (46-116); ALT/SGPT 17 U/L (7.0-40); AST/SGOT 15 U/L (<34); BILIRUBIN,TOTAL 0.7 MG/DL (0.3-1.2); BLOOD UREA NITROGEN 22 MG/DL (9-23); CALCIUM LEVEL 9.4 MG/DL (8.3-10.6); CARBON DIOXIDE LEVEL 30 MMOL/L (20-31); CHLORIDE LEVEL 107 MMOL/L (98-107); CHOLESTEROL LEVEL 132 MG/DL (<200); CHOLESTEROL RISK RATIO 3.12 (<5); CREATININE FOR GFR 1.09 MG/DL (0.70-1.30); GLOMERULAR FILTRATION RATE > 60.0 (>35); GLUCOSE, FASTING 121 MG/DL (74-106); HDL CHOLESTEROL 42.3 MG/DL (>40); LDL CHOLESTEROL 71.1 MG/DL (<100); NON-HDL-C 89.7 MG/DL; SODIUM LEVEL 139 MMOL/L (136-145); TOTAL PROTEIN 6.2 G/DL (5.7-8.2); TRIGLYCERIDES LEVEL 93 MG/DL (<150)
[2024-07-05 12:44] LABS: THYROID STIMULATING HORMONE 1.826 uIU/ML (0.55-4.78); VITAMIN B12 LEVEL 690 PG/ML (211-911)
[2024-07-05 12:45] LABS: FREE T4 1.22 NG/DL (0.89-1.76); TOTAL 25(OH) VITAMIN D 35.1 NG/ML (20.0-100.0)
[2024-07-05 12:47] LABS: HEMOGLOBIN A1c 6.3 % (4.0-6.0)
[2024-07-05 12:52] LABS: CREATININE, URINE 120.3 MG/DL; MALB URINE SIEMENS < 3.0 MG/L; MAU/CREAT RATIO 2.4 MCG/MG (0.0-30.0)
== END ==
LOC: M PLALAB 07:55
PROVIDERS: ATTEND Internal Medicine Hematology
DX: E78.01 Familial hypercholesterolemia (principal); Z79.899 Other long term (current) drug therapy

== ENCOUNTER → 2024-07-27 | Outpatient (CLI) | payer MEDICARE | LOC: M CARPUL 12:53 | PROVIDERS: ATTEND Internal Medicine Hematology | DX: I25.10 Atherosclerotic heart disease of native coronary artery without angina pectoris (principal); E11.9 Type 2 diabetes mellitus without complications; I65.23 Occlusion and stenosis of bilateral carotid arteries ==

== ENCOUNTER → 2025-07-12 | Outpatient (CLI) | payer MEDICARE ==
[~2025-07-12] MED LIST changes: +GABA-1172 PO; -GABA-282 PO; -IBUP-1022 PO; +IBUP600T42 PO; -RA T500C2 PO; -ROSU5TAB40; -ROSU5TAB40 PO; +ROSU5TAB49; +ROSU5TAB49 PO; +TURM500C10 PO
[2025-07-12 11:28] LABS: ESTIMATED AVERAGE GLUCOSE 128.0 MG/DL (60-110)
[2025-07-12 11:34] LABS: ALT/SGPT 15.0 U/L (7.0-40); AST/SGOT 16.0 U/L (<34); CALCIUM LEVEL 9.5 MG/DL (8.3-10.6); CARBON DIOXIDE LEVEL 28.0 MMOL/L (20-31); CHLORIDE LEVEL 106.0 MMOL/L (98-107); CHOLESTEROL LEVEL 122.0 MG/DL (<200); CHOLESTEROL RISK RATIO 2.66 (<5); CREATININE FOR GFR 1.13 MG/DL (0.70-1.30); GLOMERULAR FILTRATION RATE 62.1 (>35); LDL CHOLESTEROL 55.8 MG/DL (<100); NON-HDL-C 76.2 MG/DL; POTASSIUM SERUM 4.1 MMOL/L (3.5-5.1); SODIUM LEVEL 145.0 MMOL/L (136-145); TRIGLYCERIDES LEVEL 102.0 MG/DL (<150)
== END ==
LOC: M PLALAB 08:17
PROVIDERS: ATTEND Family Medicine
DX: I10 Essential (primary) hypertension (principal); E11.9 Type 2 diabetes mellitus without complications; I25.10 Atherosclerotic heart disease of native coronary artery without angina pectoris; E78.00 Pure hypercholesterolemia, unspecified